=== PATIENT | female | born 1965 | race Caucasian/White ===

== ENCOUNTER 2019-04-05 16:48 | Emergency (ER) | payer BC, OTHER ==
--- NOTE | 2019-04-05 17:30 | RAD ---
RADIOGRAPH CHEST 1 VIEW: DATE: 04/05/2019 HISTORY: 54-year-old female with chest pain and cough FINDINGS: There are no airspace densities, pulmonary edema, pneumothorax, or cardiomegaly. The lateral costophr enic angles are sharp. IMPRESSION: No acute cardiopulmonary findings.
[2019-04-05] MEDS ORDERED: Morphine 10 MG/ML VIAL ONE (17:47)
[2019-04-05] MEDS ORDERED: Ondansetron ODT 8 MG TAB ONE (17:47)
[2019-04-05 17:59] LABS: Hemoglobin 8.9 g/dL (12.0-16.0); Mean Corpuscular HGB CONC 28.8 g/dL (32.0-36.0); Mean Corpuscular Hemoglobin 19.1 pg (27.0-31.0); Mean Corpuscular Volume 66.5 fL (78.0-98.0); Mean Platelet Volume 7.2 fL (7.4-10.4); Platelet Count 184 thou/uL (130-400); Red Blood Cell (RBC) Count 4.64 mill/uL (4.20-5.40); White Blood Cell (WBC) Count 4.1 thou/uL (4.8-10.8)
[2019-04-05 18:06] LABS: #Eosinphils 0.1 thou/uL (0.0-0.7); #Lymphocytes 1.7 thou/uL (1.20-3.40); #Monocytes 0.4 thou/uL (0.11-0.59); #Neutrophils 1.9 thou/uL (1.40-6.50); %Basophils 0.6 % (0.0-1.0); %Eosinophils 2.3 % (0.0-10.0); %Lymphocytes 41.6 % (21.0-51.0); %Monocytes 9.6 % (0.0-10.0); %Neutrophils 45.9 % (42.0-75.0); Anisocytosis SLIGHT = 6-15 cells (100X) (0-5/hpf); Hypochromia SLIGHT = 6-15 cells (100X) (0-5/hpf); MDiff Complete? YES; Microcytosis SLIGHT = 6-15 cells (100X) (0-5/hpf); Platelet Morphology Comment Appears Adequate; Poikilocytosis SLIGHT = 6-15 cells (100X) (0-5/hpf)
[2019-04-05 18:09] LABS: Chloride 106 mmol/L (98-107); Potassium 4.2 mmol/L (3.5-5.1); Sodium 140 mmol/L (136-145)
[2019-04-05 18:20] LABS: ALT (SGPT) 26 U/L (8-55); AST (SGOT) 30 U/L (5-34); Albumin 3.7 g/dL (3.5-5.0); Alkaline Phosphatase 48 U/L (40-150); BUN (Urea Nitrogen) 36 mg/dL (9.8-20.1); Bilirubin, Total 0.2 mg/dL (0.2-1.2); Calc. Creatinine Clearance 0 mL/min (70-130); Calcium 9.3 mg/dL (7.8-10.44); Carbon Dioxide 26 mmol/L (22-29); Estimated GFR-MDRD 49; Globulin 2.7 g/dL (2.4-3.5); Glucose 94 mg/dL (70-105); Protein, Total 6.4 g/dL (6.0-8.3)
[2019-04-05 18:47] LABS: Anion Gap 12 mmol/L (10-20)
--- NOTE | 2019-04-09 10:31 | EKG ---
Test Reason : WEAKNESS Blood Pressure : / mmHG Vent. Rate : 065 BPM Atrial Rate : 065 BPM P-R Int : 182 ms QRS Dur : 086 ms QT Int : 424 ms P-R-T Axes : 071 012 067 degrees QTc Int : 440 ms Normal sinus rhythm Normal ECG Confirmed by BONIFACIO CHOWDHURY ([id number]), managing editor MADI CABA ([id number]) on 04/09/2019 10:31:32 AM Referred By: Confirmed By:BONIFACIO CHOWDHURY
== END 2019-04-05 19:35 | disposition home or self-care (01) ==
LOC: ERS 16:48
DX: S74.01XA Injury of sciatic nerve at hip and thigh level, right leg, initial encounter (principal); I26.99 Other pulmonary embolism without acute cor pulmonale; I10 Essential (primary) hypertension; J45.909 Unspecified asthma, uncomplicated; I95.1 Orthostatic hypotension; E03.9 Hypothyroidism, unspecified; F32.9 Major depressive disorder, single episode, unspecified; Z79.899 Other long term (current) drug therapy; Z79.01 Long term (current) use of anticoagulants; X58.XXXA Exposure to other specified factors, initial encounter
CPT/HCPCS: 36415; 71045; 80053; 84484; 85025; 93005; 96372; J2270

== ENCOUNTER 2019-06-15 08:43 | Emergency (ER) | payer OTHER ==
[2019-06-15 09:51] LABS: #Eosinphils 0.1 thou/uL (0.0-0.7); #Lymphocytes 1.3 thou/uL (1.20-3.40); #Monocytes 0.5 thou/uL (0.11-0.59); %Basophils 0.1 % (0.0-1.0); %Eosinophils 1.9 % (0.0-10.0); %Lymphocytes 19.3 % (21.0-51.0); %Monocytes 6.8 % (0.0-10.0); %Neutrophils 71.9 % (42.0-75.0); Hemoglobin 8.2 g/dL (12.0-16.0); Mean Corpuscular HGB CONC 30.5 g/dL (32.0-36.0); Mean Corpuscular Hemoglobin 21.6 pg (27.0-31.0); Mean Platelet Volume 6.3 fL (7.4-10.4); Platelet Count 213 thou/uL (130-400); RBC Distribution Width 22.1 % (11.5-14.5); Red Blood Cell (RBC) Count 3.81 mill/uL (4.20-5.40)
[2019-06-15 10:02] LABS: ALT (SGPT) 10 U/L (8-55); AST (SGOT) 15 U/L (5-34); Albumin 3.6 g/dL (3.5-5.0); Alkaline Phosphatase 58 U/L (40-150); Anion Gap 11 mmol/L (10-20); BUN (Urea Nitrogen) 25 mg/dL (9.8-20.1); Bilirubin, Total 0.3 mg/dL (0.2-1.2); Calc. Creatinine Clearance 0 mL/min (70-130); Calcium 9.5 mg/dL (7.8-10.44); Carbon Dioxide 25 mmol/L (22-29); Chloride 108 mmol/L (98-107); Estimated GFR-MDRD 68; Globulin 3.1 g/dL (2.4-3.5); Glucose 96 mg/dL (70-105); Potassium 3.6 mmol/L (3.5-5.1); Protein, Total 6.7 g/dL (6.0-8.3); Sodium 140 mmol/L (136-145)
[2019-06-15] MEDS ORDERED: HYDROcodone/Acetaminophen 5/325 mg Tablet ONE (10:03)
--- NOTE | 2019-06-15 10:03 | RAD ---
EXAM: 3 views of the right shoulder HISTORY: Shoulder pain COMPARISON: None FINDINGS: There is no evidence of acute fracture or dislocation. No degenerative changes are present. No soft tissue swelling is seen. The visualized thorax is unremarkable. IMPRESSION: No evidence of acute osseous abnormality.
--- NOTE | 2019-06-15 10:03 | RAD ---
EXAM: 3 views of the right hand COMPARISON: None HISTORY: Hand pain FINDINGS: 3 views of the right hand shows no evidence of acute fracture or dislocation. No degenerati ve changes are seen. No soft tissue swelling is present. IMPRESSION: Unremarkable exam.
--- NOTE | 2019-06-15 10:04 | RAD ---
EXAM: 3 views of the right foot HISTORY: Foot pain COMPARISON: 04/21/2016 FINDINGS: 3 views of the right foot shows no evidence of acute fracture or dislocation. Diffuse osteo penia is seen. No soft tissue swelling is seen. No degenerative changes are present. IMPRESSION: No evidence of acute osseous abnormality.
--- NOTE | 2019-06-15 10:04 | RAD ---
3 views right hand: 06/15/2019 COMPARISON: None HISTORY: Fall, trauma, pain FINDINGS: No fracture or dislocation. No radiopaque foreign body or subcutaneous gas. IMPRESSION: No acute findings.
[2019-06-15 10:15] LABS: Hypochromia MODERATE=16-30 cells (100X) (0-5/hpf); MDiff Complete? YES; Microcytosis MODERATE=15-30 cells (100X) (0-5/hpf); Ovalocytes SLIGHT = 2-5 cells (100X) (0-1/hpf); Platelet Morphology Comment Appears Adequate; Polychromasia SLIGHT = 2-3 cells (100X) (0-2/hpf)
--- NOTE | 2019-06-15 10:26 | CT ---
EXAM: CT face without contrast HISTORY: Facial trauma after falling getting up off the toilet. COMPARISON: 03/14/2016 TECHNIQUE: Multiple contiguous axial images were obtained and a CT of the face without contrast. Sagi ttal and coronal reformats were performed. FINDINGS: No facial fractures are identified. No facial soft tissue swelling is seen. The globes and retrobulbar soft tissues are unremarkable. Fluid and mucosal thickening is seen in the right maxillary sinus. The other visualized paranasal sin uses are well aerated without evidence of opacification. The mastoid air cells are well aerated. Visualized intracranial structures are unremarkable. IMPRESSION: No evidence of facial fracture
--- NOTE | 2019-06-15 11:01 | CT ---
CT BRAIN WITHOUT CONTRAST: HISTORY: Syncope, fall. FINDINGS: Comparison is made with the exam of 03/14/2016. No evidence of infarct, hemorrhage, midline shift, or abnormal extraaxial fluid collections is seen. The ventricular size is normal and the basilar cisterns patent. The bony calvarium is intact. Ther e is mucosal disease in the paranasal sinuses. IMPRESSION: No CT evidence of acute intracranial process. POS: OFF
--- NOTE | 2019-06-15 11:06 | CT ---
CT CERVICAL SPINE WITH CORONAL AND SAGITTAL REFORMATSION: HISTORY: Syncope, fall, neck pain. FINDINGS/IMPRESSION: Degenerative changes are seen most prominent at C4-5, C5-6, and C6-7 levels. No fracture, subluxatio n, or facet malalignment is seen. POS: OFF
[2019-06-15] MEDS ORDERED: Lidocaine 1% (PF) 30 ML VIAL ONE (11:35)
[2019-06-15] MEDS ORDERED: Adacel (T-DAP) 0.5 ML SYRINGE ONE (11:38)
[2019-06-15] MEDS ORDERED: Midodrine HCl 5 MG TAB PO SCH (12:30)
== END 2019-06-15 12:50 | disposition home or self-care (01) ==
LOC: ERS 08:43
DX: S01.81XA Laceration without foreign body of other part of head, initial encounter (principal); S60.222A Contusion of left hand, initial encounter; S60.221A Contusion of right hand, initial encounter; M79.671 Pain in right foot; M25.511 Pain in right shoulder; R55 Syncope and collapse; Z23 Encounter for immunization; I10 Essential (primary) hypertension; J45.909 Unspecified asthma, uncomplicated; E03.9 Hypothyroidism, unspecified; Z86.711 Personal history of pulmonary embolism; F32.9 Major depressive disorder, single episode, unspecified; Z79.899 Other long term (current) drug therapy; W18.2XXA Fall in (into) shower or empty bathtub, initial encounter
CPT/HCPCS: 12011; 36415; 70450; 70486; 72125; 80053; 85025; 90471; 90715; 93005; J2001

== ENCOUNTER 2019-06-22 14:50 | Emergency (ER) | payer OTHER | END 2019-06-22 15:32 | disposition home or self-care (01) | LOC: ERS 14:50 | DX: S01.21XD Laceration without foreign body of nose, subsequent encounter (principal) ==

== ENCOUNTER 2019-09-20 19:46 | Emergency (ER) | payer OTHER ==
[2019-09-20 20:32] LABS: #Eosinphils 0.1 thou/uL (0.0-0.7); #Lymphocytes 1.3 thou/uL (1.20-3.40); #Monocytes 0.6 thou/uL (0.11-0.59); #Neutrophils 5.1 thou/uL (1.40-6.50); %Basophils 0.1 % (0.0-1.0); %Eosinophils 1.2 % (0.0-10.0); %Lymphocytes 18.6 % (21.0-51.0); %Monocytes 7.7 % (0.0-10.0); %Neutrophils 72.4 % (42.0-75.0); Hemoglobin 8.9 g/dL (12.0-16.0); Mean Corpuscular HGB CONC 30.1 g/dL (32.0-36.0); Mean Corpuscular Hemoglobin 18.6 pg (27.0-31.0); Mean Corpuscular Volume 61.8 fL (78.0-98.0); Mean Platelet Volume 7.5 fL (7.4-10.4); Platelet Count 252 thou/uL (130-400); RBC Distribution Width 19.1 % (11.5-14.5); White Blood Cell (WBC) Count 7.1 thou/uL (4.8-10.8)
[2019-09-20] MEDS ORDERED: Acetaminophen 325 MG TAB ONE (20:42)
[2019-09-20 20:54] LABS: ALT (SGPT) 9 U/L (8-55); AST (SGOT) 15 U/L (5-34); Albumin 4.4 g/dL (3.5-5.0); Alkaline Phosphatase 69 U/L (40-110); Anion Gap 11 mmol/L (10-20); BUN (Urea Nitrogen) 20 mg/dL (9.8-20.1); Bilirubin, Total 0.5 mg/dL (0.2-1.2); Calc. Creatinine Clearance 0 mL/min (70-130); Calcium 9.8 mg/dL (7.8-10.44); Carbon Dioxide 28 mmol/L (22-29); Chloride 103 mmol/L (98-107); Estimated GFR-MDRD 41; Globulin 3.6 g/dL (2.4-3.5); Glucose 100 mg/dL (70-105); Potassium 3.3 mmol/L (3.5-5.1); Sodium 139 mmol/L (136-145)
--- NOTE | 2019-09-20 20:54 | CT ---
CT Brain WO Con: 09/20/2019 8:25 PM CLINICAL HISTORY: History of dysautonomia and recurrent syncope. IMAGING TECHNIQUE: Multiple CT images were obtained of the brain without IV contrast. COMPARISON: June 15, 2019 FINDINGS: Brain: No acute infarct or hemorrhage is evident. No midline shift. Ventricles: Normal. No hydrocephalus.. Skull: Intact.. Visualized Paranasal sinuses: Clear.. Mastoid air cells:Clear. Extracranial soft tissues:Normal. IMPRESSION: No acute intracranial abnormality.
--- NOTE | 2019-09-20 20:57 | CT ---
CT Cervical Spine WO Con Indication: History of dysautonomia, recurrent syncopal episodes and concern for fall and neck injury COMPARISON: Prior CT cervical spine dated June 15, 2019 FINDINGS: Fracture: None. Spinal alignment: No acute malalignment. Craniocervical junction: Within normal limits. Vertebral body heights: Maintained. Cervical spine degenerative change: There is moderate spondylosis of the cervical spine most pronounc ed at C5-6 and C6-7. Disc osteophyte complexes at C5-6 and C6-7 appear stable. Lung apices: Clear. IMPRESSION: No acute osseous abnormality.
[2019-09-20 21:00] LABS: Anisocytosis SLIGHT = 6-15 cells (100X) (0-5/hpf); Hypochromia SLIGHT = 6-15 cells (100X) (0-5/hpf); MDiff Complete? YES; Microcytosis MODERATE=15-30 cells (100X) (0-5/hpf)
--- NOTE | 2019-09-20 21:04 | RAD ---
Chest AP view INDICATION: Syncope COMPARISON: April 21, 2019 FINDINGS: Lungs:The lungs are clear Cardiac silhouette:The cardiomediastinal silhouette appears within normal limits. Pulmonary vasculature:Normal Pleural spaces:No pleural effusion or pneumothorax is demonstrated. Upper abdomen:No abnormality seen. Osseous structures: No acute osseous abnormality. Additional findings:Cholecystectomy clips are stable IMPRESSION: No acute cardiopulmonary abnormality.
--- NOTE | 2019-09-20 21:05 | RAD ---
XR Knee Rt 4 View STANDARD: 09/20/2019 8:35 PM CLINICAL INDICATION: Fall with right knee pain COMPARISON: None. FINDINGS: Bones: There is diffuse osteopenia. No acute fracture or subluxation demonstrated. Joints: No joint capsular distention.. Soft Tissue: No acute abnormality.. IMPRESSION: No acute osseous abnormality..
--- NOTE | 2019-09-20 21:05 | RAD ---
XR Ankle Rt 3 View STANDARD INDICATION: Ankle injury. COMPARISON: Prior exam dated May 06, 2019 FINDINGS: Bones: Intact. Ankle mortise: Symmetric. Talar Dome: Intact. Subtalar joint: Normal. Visualized hindfoot: Normal. Periarticular soft tissues: Normal. IMPRESSION: 1. No acute fracture or subluxation demonstrated.
--- NOTE | 2019-09-20 21:10 | RAD ---
XR Hip Rt 2-3 View INDICATION: Right hip pain after fall COMPARISON: None FINDINGS: Bones: No acute osseous abnormality. Bone mineralization appears within normal limits. Hip joint: Radiographically normal. SI joints and symphysis pubis: Radiographically normal. Intrapelvic contents: Visualized bowel gas pattern is within normal limits. Surrounding soft tissues: Radiographically normal. IMPRESSION: 1. No acute osseous abnormality.
[2019-09-20] MEDS ORDERED: Morphine 2 MG/ML SYRINGE ONE (23:10)
== END 2019-09-20 23:55 | disposition home or self-care (01) ==
LOC: ERS 19:46
DX: S06.9X9A Unspecified intracranial injury with loss of consciousness of unspecified duration, initial encounter (principal); R55 Syncope and collapse; M54.2 Cervicalgia; I10 Essential (primary) hypertension; J45.909 Unspecified asthma, uncomplicated; E03.9 Hypothyroidism, unspecified; F32.9 Major depressive disorder, single episode, unspecified; Z79.899 Other long term (current) drug therapy; Z86.711 Personal history of pulmonary embolism; W22.8XXA Striking against or struck by other objects, initial encounter
CPT/HCPCS: 70450; 71045; 72125; 80053; 84484; 85025; 93005; 94760; 96374; J2270

== ENCOUNTER 2019-10-12 20:41 | Inpatient (IN) | payer OTHER ==
[2019-10-12 21:50] LABS: #Lymphocytes 1.2 thou/uL (1.20-3.40); #Neutrophils 10.3 thou/uL (1.40-6.50); %Basophils 0.1 % (0.0-1.0); %Eosinophils 0.1 % (0.0-10.0); %Lymphocytes 9.5 % (21.0-51.0); %Monocytes 7.7 % (0.0-10.0); %Neutrophils 82.6 % (42.0-75.0); Hemoglobin 7.4 g/dL (12.0-16.0); Mean Corpuscular HGB CONC 29.7 g/dL (32.0-36.0); Mean Corpuscular Hemoglobin 18.1 pg (27.0-31.0); Mean Platelet Volume 6.1 fL (7.4-10.4); Platelet Count 252 thou/uL (130-400); RBC Distribution Width 18.8 % (11.5-14.5); Red Blood Cell (RBC) Count 4.08 mill/uL (4.20-5.40); White Blood Cell (WBC) Count 12.5 thou/uL (4.8-10.8)
--- NOTE | 2019-10-12 21:52 | RAD ---
Exam: Right shoulder 3 views: HISTORY: Syncope shoulder pain after fall FINDINGS: No evidence for acute fracture or dislocation. There is patchy alveolar parenchymal infiltrative stewart ges in the right lung concerning for pneumonia or edema. Consider follow-up PA and lateral chest. IMPRESSION: No fracture or dislocation. Abnormal pulmonary parenchymal changes in the right lung.
--- NOTE | 2019-10-12 22:04 | CT ---
EXAM: CT scan cervical spineWithout contrast: HISTORY: Injury from trauma, fall COMPARISON: 09/20/2019 FINDINGS: No evidence for acute fracture or facet dislocation. No significant malalignment. No prevertebral soft tissue swelling. Stable spondylosis with disc osteophytosis particularly at C5-C6 and C6-C7 with some associated steno sis. IMPRESSION: No evidence for acute fracture or facet dislocation or other significant acute process. Stable exam.
--- NOTE | 2019-10-12 22:06 | CT ---
EXAM: Brain CTWithout contrast: HISTORY: Injury from trauma, fall COMPARISON: 09/20/2019 FINDINGS: No focal mass or midline shift. No intra or extra-axial hemorrhage. Sinuses and mastoids are clear of acute process. IMPRESSION: No mass or bleed or other significant acute intracranial process. Stable exam.
[2019-10-12 22:11] LABS: ALT (SGPT) 9 U/L (8-55); AST (SGOT) 10 U/L (5-34); Albumin 3.5 g/dL (3.5-5.0); Alkaline Phosphatase 90 U/L (40-110); Anion Gap 13 mmol/L (10-20); BUN (Urea Nitrogen) 30 mg/dL (9.8-20.1); Bilirubin, Total 0.5 mg/dL (0.2-1.2); CK (CPK) 13 U/L (29-168); Calc. Creatinine Clearance 0 mL/min (70-130); Calcium 9.4 mg/dL (7.8-10.44); Carbon Dioxide 28 mmol/L (22-29); Chloride 100 mmol/L (98-107); Estimated GFR-MDRD 50; Globulin 3.6 g/dL (2.4-3.5); Glucose 100 mg/dL (70-105); Magnesium 2.2 mg/dL (1.6-2.6); Potassium 3.4 mmol/L (3.5-5.1); Protein, Total 7.1 g/dL (6.0-8.3); Sodium 138 mmol/L (136-145)
[2019-10-12] MEDS ORDERED: Acetaminophen 500 MG TAB ONE (22:36)
--- NOTE | 2019-10-12 22:54 | PDOC.FPRHP ---
- History of Present Illness Chief Complaint: found down at home History of Present Illness: Ms. Caceres is a 54yoF w/ pmh of dysautonomia who presents for loss of consciousness today. She lives alone. This morning she seemed off, texted her daughter an incoherent message around 8am. Daughter was unable to reach her between 9am and 5pm. Patient states that sometime around lunch time she fell and hit her head, but she does not recall the events surrounding the fall. Around 5pm she stopped responding to calls. Sometime today between 5 and 8 pm she lost consciousness, was found by daughter at 8pm. She had bowel and bladder incontinence today while unconscious. Her daughters report that her episodes have progressively worsened and appear seizure like with significant facial twitching and arm twitching. Daughters report that she has been falling more often (>3-4x / week) since her hospitalization in March of 2019 in [place]. Symptoms have acutely worsened in the last 6 weeks. She OD'd on temazapam in a suicide attempt in 03/2019 ([facility]) and subsequently had pulmonary emboli and neurologic complications. Has history of grand mal seizures since the diagnosis of dysautonomia in 2004. Last seizure was approx 8 years ago. Has alcohol monitor on ankle for past 6 months as a result of a DUI. Has been sober since then. Neurologist - Dr. Perez, last seen this summer. 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 PCP - Dr. Avery ED Course: Tylenol 1000mg, - Allergies/Adverse Reactions Allergies Allergy/AdvReac Type Severity Reaction Status Date / Time gatifloxacin [From Tequin] Allergy Verified 03/14/16 17:11 levofloxacin [From Levaquin] Allergy Verified 03/14/16 15:50 pneumococcal vaccine Allergy Verified 06/11/15 17:50 - Home Medications Medication Instructions Recorded Confirmed Type DULoxetine [Cymbalta] 30 mg PO BID 10/13/19 10/13/19 History Gabapentin [Gabapentin Oral 1,200 mg PO TID 10/13/19 10/13/19 History Solution] HYDROcodone/Acetaminophen [[place] 1 each PO Q6HR PRN 10/13/19 10/13/19 History 5-325 Tablet] Lamotrigine [lamoTRIgine] 100 mg PO DAILY 10/13/19 10/13/19 History Levothyroxine Sodium [Synthroid] 150 mcg PO DAILY 10/13/19 10/13/19 History Metoprolol Tartrate 200 mg PO DAILY 10/13/19 10/13/19 History Mexiletine HCl 150 mg PO DAILY 10/13/19 10/13/19 History Midodrine HCl 10 mg PO TID 10/13/19 10/13/19 History Pantoprazole [Protonix] 40 mg PO DAILY 10/13/19 10/13/19 History Topiramate 100 mg PO HS 10/13/19 10/13/19 History carBAMazepine [Tegretol] 100 mg PO BID 10/13/19 10/13/19 History traMADol HCl [Tramadol HCl] 50 mg PO Q6HR PRN 10/13/19 10/13/19 History traZODone HCl [Trazodone HCl] 100 mg PO HS 10/13/19 10/13/19 History - History PMHx: HTN Dysautonomia Seizure disorder Hypothyroidism Depression h/o Pulmonary embolism Foot drop Suicidality (last attempt 03/26/2019) PSHx: Hyst Gastric bypass Raymundo Celena Csections x2 Spinal fusion FHx: Brother: Lymphoma Parents from [facility] Brother: Esophageal cancer Social: Alcoholism, currently sober x 6 months. Denies tobacco use, denies illicit drug use. - Review of Systems General: reports: fatigue. denies: fever/chills, weight/appetite/sleep changes Eyes: denies: eye pain, vision changes ENT: reports: nasal congestion, rhinorrhea, other (hard of hearing) Respiratory: reports: cough, congestion. denies: shortness of breath Cardiovascular: reports: edema. denies: chest pain, palpitation, paroxysmal nocturnal dyspnea Gastrointestinal: reports: nausea, diarrhea. denies: vomiting, constipation, abdominal pain, GI bleeding Genitourinary: reports: incontinence, other (difficulty initiating urination). denies: dysuria Skin: reports: jaundice. denies: rashes, lesions Musculoskeletal: denies: pain, tenderness, stiffness Neurological: reports: numbness, syncope, weakness Psychological: reports: anxiety, depression - Vital signs BP: 152/86 HR: 58 RR: 16 Pox: 100% on RA Wt: 115lbs - Physical Exam Constitutional: NAD, awake, alert and oriented -Constitutional: thin HEENT: normocephalic and atraumatic, PERRLA, EOMI, conjunctiva clear, grossly normal vision, grossly normal hearing Neck: supple Heart: RRR, normal S1/S2, no murmurs/rubs/gallops, pulses present, no edema Lungs: CTAB, no respiratory distress, good air movement, no rales/rhonchi, no wheezing Abdomen: soft, non-tender, bowel sounds present Musculoskeletal: normal structure, normal tone -Musculoskeletal: Right calf pain Neurological: no focal deficit, CN II-XII intact -Neurological: Right foot drop Skin: no rash/lesions, good turgor -Skin: slightly jaundiced appearing Heme/Lymphatic: no unusual bruising or bleeding, no purpura, no petechia -Psychiatric: Flat affect FMR H&P: Results - Labs Result Diagrams: 10/12/19 21:38 10/12/19 21:38 Lab results: WBC 12.5 thou/uL (4.8-10.8) H 10/12/19 21:38 Hgb 7.4 g/dL (12.0-16.0) L 10/12/19 21:38 Hct 24.9 % (36.0-47.0) L 10/12/19 21:38 MCV 61.0 fL (78.0-98.0) L 10/12/19 21:38 Plt Count 252 thou/uL (130-400) 10/12/19 21:38 Neutrophils % 82.6 % (42.0-75.0) H 10/12/19 21:38 Sodium 138 mmol/L (136-145) 10/12/19 21:38 Potassium 3.4 mmol/L (3.5-5.1) L 10/12/19 21:38 Chloride 100 mmol/L (98-107) 10/12/19 21:38 Carbon Dioxide 28 mmol/L (22-29) 10/12/19 21:38 BUN 30 mg/dL (9.8-20.1) H 10/12/19 21:38 Creatinine 1.14 mg/dL (0.6-1.1) H 10/12/19 21:38 Glucose 100 mg/dL (70-105) 10/12/19 21:38 Calcium 9.4 mg/dL (7.8-10.44) 10/12/19 21:38 Total Bilirubin 0.5 mg/dL (0.2-1.2) 10/12/19 21:38 AST 10 U/L (5-34) 10/12/19 21:38 ALT 9 U/L (8-55) 10/12/19 21:38 Alkaline Phosphatase 90 U/L (40-110) 10/12/19 21:38 Creatine Kinase 13 U/L (29-168) L 10/12/19 21:38 Serum Total Protein 7.1 g/dL (6.0-8.3) 10/12/19 21:38 Albumin 3.5 g/dL (3.5-5.0) 10/12/19 21:38 - Radiology Interpretation CT scan - head Status: report reviewed by me (No mass or bleed or other significant acute intracranial process. C-spine: No evidence for acute fracture or facet dislocation or other significant acute process. Stable exam.) Other Status: report reviewed by me (Shoulder X-ray: No fracture or dislocation. Abnormal pulmonary parenchymal changes in the right lung.) FMR H&P: A/P - Plan Seizure disorder / Loss of consciousness - Recommend seizure precautions, continue home medications. - Prolactin WNL - Consider EEG - Will consult Neurology in the morning - Carotid doppler ordered to evaluate syncope - continuous cardiac monitoring to evaluate for arrhythmia Microcytic anemia - Iron studies ordered. - Recommend iron supplementation Dysautonomia - recommend f/u with neurology Chronic medical conditions listed below: Stable, continue home medications. Hypothyroidism Depression HTN Suicidality (last attempt 03/26/2019) - Currently not suicidal. Continue home depression medications. Disposition/LOS: Dispo: Stable vs guarded, inpatient likely LOS > 48 hours. Will need case management for help with d/c planning. VTE: Lovenox Code: Full FMR H&P: Upper Level - Plan Date/Time: 10/12/19 [id number] PCP: Gena HPI: This is a 54 yo F who comes in complaining of increasing amounts of falls, about 3-4 per week. Daughter states patient seemed off when talking on the phone with her this morning. Patient remembers falling and hitting her head sometime this morning. Then later in the night around 5pm patient quit answering the phone. Daughter went to check on her and found her passed out on the cough incontinent of bowel and bladder. REVIEW OF SYSTEMS: Gen: no fever, chills, or sweats Neuro: see above Eyes: no visual changes ENT: no hearing changes, no sore throat, no congestion Resp: denies cough, SOB Card: denies murmurs, rubs, gallups GI: no N/V/D, no abdominal pain Heme: no easy bruising/bleeding, no blood thinners Skin: no rash, no erythema PHYSICAL EXAMINATION: General: NAD, alert and oriented x3 HEENT: PERRLA, EOMI, normal sclera, oropharynx without erythema or exudate Neck: Supple. Full ROM. Heart/Cardiovascular System: RRR, Cap refill < 3 seconds, no rub, no murmur Lungs/Respiratory System: CTA-B, no resp distress Abdomen/Gastro-Intestinal System: no abdominal tenderness, normal bowel sounds Extremities: Warm extremities. No cyanosis or edema Neuro: No gross deficits appreciated. CN 2-12 grossly intact, NIHSS 0 Psychiatry: Awake, Alert and cooperative with exam Skin: No lesions, rashes, or ulcers Musculoskeletal: Full ROM A/P: # Seizure disorder - EEG and neurology consult in AM - Check levels of medications - History of OD attempt on benzos in march # Syncope, Dysautonomia - Known issue from review of clinic notes - Was referred to new occupational hygienist as [facility] does not accept her insurance - Carotid doppler # Microcytic anemia - Hgb 7.4, iron studies Code status: full PPx: lovenox Dispo: 1-2 days
[2019-10-13] MEDS ORDERED: Acetaminophen 325 MG TAB ONE (04:31)
[2019-10-13] MEDS ORDERED: Ondansetron ODT 4 MG TAB PO PRN (05:52)
[2019-10-13] MEDS ORDERED: Acetaminophen 325 MG TAB PO PRN (05:52)
[2019-10-13] MEDS ORDERED: Loperamide HCl 2 MG CAP PO PRN (05:52)
[2019-10-13] MEDS ORDERED: Lorazepam 2 MG/ML VIAL SLOW IVP PRN (05:52)
--- NOTE | 2019-10-13 05:56 | PDOC.FM ---
- Subjective Subjective: Pt states she just woke up and having trouble verbalizing her thoughts. Pt denies GARNCIA, CP, SOB. Resting well, about to move to stroke unit from ED. On ER hold overnight. - Objective MAR Reviewed: Yes Result Diagrams: 10/12/19 21:38 10/12/19 21:38 Phys Exam - Physical Examination Constitutional: NAD HEENT: PERRLA, moist MMs, sclera anicteric conjunctival pallor. Neck: no nodes, no JVD, supple, full ROM Respiratory: no wheezing, no rales, no rhonchi, clear to auscultation bilateral Cardiovascular: RRR, no significant murmur, no rub Gastrointestinal: soft, non-tender, no distention, positive bowel sounds Musculoskeletal: no edema, pulses present Neurological: non-focal, normal sensation, moves all 4 limbs Psychiatric: A&O x 3 Skin: no rash, normal turgor, cap refill <2 seconds Dx/Plan (1) Syncopal seizure Code(s): R55 - SYNCOPE AND COLLAPSE; R56.9 - UNSPECIFIED CONVULSIONS Status: Acute (2) Dysautonomia Code(s): G90.9 - DISORDER OF THE AUTONOMIC NERVOUS SYSTEM, UNSPECIFIED Status : Chronic (3) Hypertension Code(s): I10 - ESSENTIAL (PRIMARY) HYPERTENSION Status: Chronic Qualifiers: Hypertension type: essential hypertension Qualified Code(s): I10 - Essential (primary) hypertension (4) Hx of suicide attempt Code(s): Z91.5 - PERSONAL HISTORY OF SELF-HARM Status: Acute - Plan Plan: 54 y/o F admitted to stroke for GLF for further workup and evaluation. 1. Seizure disorder / Loss of consciousness - Recommend seizure precautions, continue home medications. - Prolactin WNL - Consider EEG - Will consult Neurology - Carotid doppler ordered to evaluate syncope - continuous cardiac monitoring to evaluate for arrhythmia 2. Microcytic anemia - Iron studies, B12, and RBC Folate ordered. - Recommend iron supplementation 3. Dysautonomia - recommend f/u with neurology Chronic medical conditions listed below: Stable, continue home medications. Hypothyroidism Depression HTN 4. Hx of suicidal attempt (last attempt 03/26/2019) - Currently not suicidal. Continue home depression medications. 5. Hx of Alcohol abuse and misuse - Pt currently has etoh monitor on left ankle. - DUI cristian ordered monitor. 6. Hx of recurrent falls - Ordered RPR, B12 to further evaluate in setting of etoh abuse. - carotid doppler pending Disposition/LOS: Dispo: Stable vs guarded, inpatient likely LOS > 48 hours. Will need case management for help with d/c planning. VTE: Lovenox Code: Full
[2019-10-13 07:12] LABS: Cardiac Risk 4.7 (Less than 4.5); Cholesterol 123 mg/dl (< 200 Desired); HDL Cholesterol 26 mg/dL (>60 Neg Risk); Iron Less than 8 ug/dL (50-170); Iron Binding Capacity, Total 359 mcg/dL (265-497); LDL Cholesterol, Calculated 73 mg/dL; Triglycerides 118 mg/dL (Less than 150)
[2019-10-13 07:32] LABS: Syphilis Antibody Nonreactive (Nonreactive); Syphilis Antibody Index 0.02 S/CO (<1.00 Non-Reactive)
[2019-10-13] MEDS ORDERED: Enoxaparin Sodium 40 MG/0.4 ML SYRINGE ONE (08:48)
[2019-10-13] MEDS ORDERED: Famotidine 20 MG TAB ONE (08:48)
[2019-10-13] MEDS ORDERED: carBAMazepine 100 mg Chewable Tablet PO SCH (09:00)
[2019-10-13] MEDS ORDERED: Enoxaparin Sodium 40 MG/0.4 ML SYRINGE SC SCH ×2 (09:00)
[2019-10-13] MEDS ORDERED: lamoTRIgine 100 MG TAB PO SCH (09:00)
[2019-10-13] MEDS ORDERED: Gabapentin 100 MG CAP PO SCH ×2 (09:00→09:26)
[2019-10-13] MEDS: Sodium Chloride 0.9% 1,000 ML IV SCH ×3 (09:10→22:55)
[2019-10-13] MEDS: Levothyroxine 150 MCG TAB PO SCH (09:11)
[2019-10-13] MEDS: Famotidine 20 MG TAB PO SCH ×2 (09:12→20:32)
[2019-10-13] MEDS: Metoprolol Tartrate 100 MG TAB PO SCH (09:14)
--- NOTE | 2019-10-13 09:57 | ULT ---
BILATERAL CAROTID DUPLEX ULTRASOUND: DATE: 10/13/19 HISTORY: Syncope. TECHNIQUE: Forbes scale ultrasound with color flow and spectral Doppler imaging of the extracranial carotid artery systems performed bilaterally. FINDINGS: No significant plaque formation or intimal wall thickening seen. The peak systolic velocity in the right ICA measures 73 cm/second with an end-diastolic velocity of 2 7 cm/second and a systolic ratio of 1.09. The peak systolic velocity in the left ICA measures 70 cm/second with an end-diastolic velocity of 32 cm/second and a systolic ratio of 0.95. Flow in both vertebral arteries remains antegrade. IMPRESSION: No evidence of hemodynamically significant stenosis. POS: TPC
[2019-10-13] MEDS: Gabapentin 300 MG CAP PO SCH ×3 (10:52→20:37)
[2019-10-13] MEDS: Mexiletine HCl 150 MG CAP PO SCH (11:01)
[2019-10-13] MEDS: Midodrine HCl 5 MG TAB PO SCH ×2 (11:01→17:37)
[2019-10-13] MEDS: DULoxetine 30 MG CAP PO SCH ×2 (11:02→20:33)
[2019-10-13 11:43] LABS: Free T4 (Free Thyroxine) 1.16 ng/dL (0.70-1.48)
[2019-10-13 11:57] LABS: HBSAg Index 0.32 S/CO (0-0.99); HIV (1/2) Antibody/Antigen Non-Reactive (NonReactive); HIV 1/2 INDEX 0.14 S/CO (<1.00); Hep A IgM AB Non-Reactive (NonReactive); Hep A IgM S/CO 0.37 S/CO (0-0.79); Hep B Core Total Ab Non-Reactive (NonReactive); Hep B Core Total Index 0.12 S/CO (0-0.79); Hep B Surf Ag Non-Reactive S/CO (NonReactive)
[2019-10-13 11:59] LABS: HBSAB Concentration 13.84 mIU/mL; Hep B Surf AB Reactive (NonReactive)
--- NOTE | 2019-10-13 12:37 | HP ---
I have discussed the case with Dr. Anaid Hammond and with Dr. Jeannette Calderón and agreed with their assessment and plan. HISTORY OF PRESENT ILLNESS: Briefly, Ms. Caceres is a 54-year-old white female patient, has a long complicated past medical history including history of dysautonomia and seizure disorder. She also has a history of long-standing what appears to be iron deficiency anemia with recent colonoscopy in [place] in March of this year. She was told at that time that she had "polyps" but no biopsies were undertaken. In the event, her hemoglobin on admission was 7.4, and we will re-initiate a workup. PHYSICAL EXAMINATION: VITAL SIGNS: Her blood pressure is 152/86, her pulse rate is 58 and regular, respirations 16, her room air pulse ox is 100% GENERAL: She is pleasant, cooperative, in no acute distress. She is oriented x4. EAR, NOSE, AND THROAT: No erythema or exudate. Moist mucous membranes. NECK: Supple. CARDIAC: Heart rhythm regular. No gallop or murmur noted. LUNGS: Clear without rales or wheezes. No respiratory distress. ABDOMEN: Flat, benign, soft. No guarding, rebound, or rigidity. NEUROLOGIC: She has no focal deficits. LABORATORY DATA: White count is 12,500, hemoglobin is 7.4, hematocrit is 24.9, MCV is 61. Chemistry; sodium 138, potassium 3.4, chloride 100, bicarb 28, BUN 30, creatinine 1.14 with GFR of 50. Her glucose is 100. Her liver functions test are normal. Hepatitis panel is pending. ASSESSMENT: Probable iron-deficiency anemia, given that she has had a GI workup fairly recently. We should also check her for celiac disease. She will likely need another colonoscopy, which can be done as an outpatient to retrieve these polyps. Other workup will depend on the results of her initial blood studies, which we are awaiting. Job ID: [id number]
[2019-10-13] MEDS ORDERED: Potassium Chloride 20 MEQ TAB PO SCH (14:30)
[2019-10-13 14:46] VITALS: BMI 19.0
[2019-10-13] MEDS ORDERED: Iron, Sodium Ferric Gluconate 250 MG in Sodium Chloride 0.9% 100 ML IVPB SCH (15:00)
[2019-10-13 15:29] LABS: Phosphorus 3.1 mg/dL (2.3-4.7)
[2019-10-13] MEDS ORDERED: Midodrine HCl 5 MG TAB PO PRN (15:44)
[2019-10-13 16:24] LABS: Band 8 % (5-11); Eosinophils 1 % (0-10); Helmet Cells SLIGHT = 2-5 cells (100X) (0-1/hpf); Hemoglobin 7.2 g/dL (12.0-16.0); Hypochromia SLIGHT = 6-15 cells (100X) (0-5/hpf); Lymphocytes 13 % (21-51); MDiff Complete? YES; Mean Corpuscular HGB CONC 30.1 g/dL (32.0-36.0); Mean Corpuscular Hemoglobin 18.6 pg (27.0-31.0); Mean Corpuscular Volume 61.7 fL (78.0-98.0); Mean Platelet Volume 6.3 fL (7.4-10.4); Monocytes 1 % (0-10); Neutrophil 77 % (42-75); Platelet Count 262 thou/uL (130-400); Platelet Morphology Comment Appears Adequate; Polychromasia SLIGHT = 2-3 cells (100X) (0-2/hpf); RBC Distribution Width 18.7 % (11.5-14.5); Red Blood Cell (RBC) Count 3.86 mill/uL (4.20-5.40); Schistocytes SLIGHT = 2-5 cells (100X) (0-1/hpf); Target Cells SLIGHT = 2-5 cells (100X) (0-1/hpf); Tear Drops SLIGHT = 2-5 cells (100X) (0-1/hpf); White Blood Cell (WBC) Count 8.2 thou/uL (4.8-10.8)
--- NOTE | 2019-10-13 17:13 | ULT ---
ULTRASOUND DOPPLER DUPLEX VENOUS BILATERAL LOWER EXTREMITIES: DATE: 10/13/2019 HISTORY: 54-year-old female with right lower extremity pain. Sherly Perkins, charge nurse notified of the DVT by Dr Driscoll at 5:10 PM 10/13/2019 TECHNIQUE: Grayscale, color-flow, and spectral analysis, of the bilateral common femoral, profunda femoral, grea ter saphenous, femoral, popliteal, and posterior tibial, veins. FINDINGS: There is noncompressibility and significantly diminished flow due to thrombosis, in the right poplite al vein, extending into the posterior tibial vein. There is no DVT in the contralateral left lower extremity. IMPRESSION: Positive for acute deep venous thrombosis of right popliteal and right posterior tibial veins.
[2019-10-13] MEDS: carBAMazepine 200 MG TAB PO SCH (17:37)
[2019-10-13] MEDS: Ferrous Sulfate 325 MG TAB PO SCH (17:37)
[2019-10-13] MEDS: HYDROcodone/Acetaminophen 5/325 mg Tablet PO PRN (20:31)
[2019-10-13] MEDS: Enoxaparin Sodium 60 MG/0.6 ML SYRINGE SC SCH (20:34)
[2019-10-13] MEDS ORDERED: Metoprolol Tartrate 100 MG TAB PO SCH (21:00)
[2019-10-13] MEDS ORDERED: traZODone HCl 50 MG TAB PO SCH (21:00)
[2019-10-13] MEDS ORDERED: Midodrine HCl 5 MG TAB PO SCH (21:00)
[2019-10-13] MEDS ORDERED: Topiramate 100 MG TAB PO SCH (21:00)
[2019-10-14] MEDS ORDERED: Ibuprofen 600 MG TAB PO PRN (00:29)
[2019-10-14] MEDS: HYDROcodone/Acetaminophen 5/325 mg Tablet PO PRN (05:02)
[2019-10-14] MEDS: Levothyroxine 150 MCG TAB PO SCH (05:03)
[2019-10-14 05:19] LABS: Anion Gap 10 mmol/L (10-20); BUN (Urea Nitrogen) 18 mg/dL (9.8-20.1); Calc. Creatinine Clearance 66 mL/min (70-130); Calcium 8.6 mg/dL (7.8-10.44); Carbamazepine-Tegretol 3.4 ug/mL (4.0-12.0); Carbon Dioxide 27 mmol/L (22-29); Chloride 105 mmol/L (98-107); Estimated GFR-MDRD 72; Glucose 82 mg/dL (70-105); Potassium 3.2 mmol/L (3.5-5.1); Sodium 139 mmol/L (136-145)
[2019-10-14] MEDS ORDERED: Midodrine HCl 5 MG TAB PO SCH ×3 (06:00→14:00)
--- NOTE | 2019-10-14 06:04 | PDOC.FM ---
- Subjective Subjective: Pt c/o Upper right sided CP, worse when coughing and deep breathing. Pt found to have RLE DVT 10/13. Pt has a hx of PE from 03/2019. Was on Eliquis, but discontinued eliquis when she moved to [place] later that same month. Pt states she is starting to feel better, improved from yesterday. BP labile overnight. Pt has hx of this problem. - Objective MAR Reviewed: Yes Vital Signs & Weight: Vital Signs (12 hours) Temp Pulse Resp BP Pulse Ox 10/14/19 03:48 98.1 F 63 16 108/64 95 10/13/19 23:12 55 L 159/91 H 10/13/19 19:30 97.7 F 58 L 16 191/98 H 100 Weight Weight 53.388 kg Result Diagrams: 10/13/19 14:51 10/14/19 04:38 Phys Exam - Physical Examination Constitutional: NAD HEENT: PERRLA, moist MMs, sclera anicteric Neck: no nodes, no JVD, supple, full ROM Respiratory: no wheezing, no rales, no rhonchi, clear to auscultation bilateral Cardiovascular: RRR, no significant murmur, no rub Reproducible T to R upper chest. Gastrointestinal: soft, non-tender, no distention, positive bowel sounds Musculoskeletal: no edema, pulses present Tenderness ot R calf. + aziza sign R. Neurological: moves all 4 limbs R foot drop. Psychiatric: A&O x 3 Skin: no rash, normal turgor, cap refill <2 seconds Dx/Plan (1) Syncopal seizure Code(s): R55 - SYNCOPE AND COLLAPSE; R56.9 - UNSPECIFIED CONVULSIONS Status: Acute (2) Dysautonomia Code(s): G90.9 - DISORDER OF THE AUTONOMIC NERVOUS SYSTEM, UNSPECIFIED Status : Chronic (3) Hypertension Code(s): I10 - ESSENTIAL (PRIMARY) HYPERTENSION Status: Chronic Qualifiers: Hypertension type: essential hypertension Qualified Code(s): I10 - Essential (primary) hypertension (4) Hx of suicide attempt Code(s): Z91.5 - PERSONAL HISTORY OF SELF-HARM Status: Acute (5) History of pulmonary embolus (PE) Code(s): Z86.711 - PERSONAL HISTORY OF PULMONARY EMBOLISM Status: Resolved (6) Deep vein thrombosis (DVT) of popliteal vein of right lower extremity Code(s): I82.431 - ACUTE EMBOLISM AND THROMBOSIS OF RIGHT POPLITEAL VEIN Status: Acute Qualifiers: Chronicity: acute Qualified Code(s): I82.431 - Acute embolism and thrombosis of right popliteal vein - Plan Plan: 54 y/o F admitted to stroke for GLF for further workup and evaluation. 1. Seizure disorder / Loss of consciousness - Recommend seizure precautions, continue home medications. - Prolactin WNL - Consider EEG - Will consult Neurology - Carotid doppler ordered to evaluate syncope - continuous cardiac monitoring to evaluate for arrhythmia 2. Microcytic anemia - Iron studies, B12, and RBC Folate ordered. - Recommend iron supplementation 3. Dysautonomia - recommend f/u with neurology - + orthostatics, restarted home meds. Chronic medical conditions listed below: Stable, continue home medications. Hypothyroidism Depression HTN 4. Hx of suicidal attempt (last attempt 03/26/2019) - Currently not suicidal. Continue home depression medications. 5. Hx of Alcohol abuse and misuse - Pt currently has etoh monitor on left ankle. - DUI cristian ordered monitor. 6. Hx of recurrent falls - Ordered RPR, B12 to further evaluate in setting of etoh abuse. - carotid doppler pending 7. DVT in RLE in Popliteal and posterior tib veins. - Started Therapeutic Lovenox 10/13 8. Pleuritic Chest Pain - In setting of DVT and previous PE, ordered CTA Chest - Pt already on Lovenox for DVT. 9. Hx of PE 03/2019 - Was on eliquis short period of time. - Reports discontinuation of eliquis at the end of 03/2019. Disposition/LOS: Dispo: Stable vs guarded, inpatient likely LOS > 48 hours. Will need case management for help with d/c planning. VTE: Lovenox Code: Full
[2019-10-14] MEDS ORDERED: Potassium Chloride 20 MEQ TAB PO SCH (06:15)
[2019-10-14] MEDS: Enoxaparin Sodium 60 MG/0.6 ML SYRINGE SC SCH (09:49)
[2019-10-14] MEDS: Famotidine 20 MG TAB PO SCH (09:50)
[2019-10-14] MEDS: Metoprolol Tartrate 100 MG TAB PO SCH (09:50)
[2019-10-14] MEDS: carBAMazepine 200 MG TAB PO SCH ×2 (09:51→16:04)
[2019-10-14] MEDS: DULoxetine 30 MG CAP PO SCH (09:54)
[2019-10-14] MEDS: Ferrous Sulfate 325 MG TAB PO SCH ×2 (09:54→16:03)
[2019-10-14] MEDS: Mexiletine HCl 150 MG CAP PO SCH (09:54)
[2019-10-14] MEDS: GABAPENTIN 250 MG/5 ML PO SCH ×2 (09:56→16:06)
[2019-10-14] MEDS ORDERED: Iopamidol 370 76% 100 ML VIAL ONE (11:33)
[2019-10-14 11:40] VITALS: BP 119/65; TEMP 97.5
--- NOTE | 2019-10-14 11:53 | CT ---
CT PULMONARY ANGIOGRAM WITH IV CONTRAST AND 3D POSTPROCESSING: HISTORY: Chest pain, cough, cough, diagnosed with a right lower extremity DVT yesterday. FINDINGS: There is good contrast opacification of the pulmonary arterial vasculature without filling defects to suggest pulmonary embolism. The thoracic aorta is well opacified. No thoracic aortic aneurysm or d issection is seen. No pleural or pericardial effusions are identified. No pneumothoraces are seen. There are diffuse reticulonodular infiltrates in the right lung and patchy ones on the left. There are patchy airspace opacities in the right lower lobe. Upper abdominal tomograms demonstrate changes of cholecystectomy. IMPRESSION: 1. No CT evidence of pulmonary embolism. 2. Reticulonodular and alveolar infiltrates are suspicious for infection. POS: [facility]
[2019-10-14 14:45] LABS: EliA Celiac New Method **** NEW METHOD ****; t-Transglutaminase (tTG) IgA 0.3 EliAU/mL (<7 Negative)
--- NOTE | 2019-10-14 16:12 | PRG ---
DATE OF SERVICE: 10/14/2019 Ms. Caceres is sitting in bed quietly, in no distress. Her blood work is consistent with a mild iron deficiency anemia and possibly thalassemia given her very low MCV. We are checking hemoglobin electrophoresis. She also has a low B12 level, and we will begin to replace this. Some of these symptoms could be explained by the possibility of celiac disease, and we are checking an IgA tTG. Otherwise, she is ready for discharge home, and the rest of this workup to be done as an outpatient. Job ID: [id number]
[2019-10-14] MEDS: Sodium Chloride 0.9% 1,000 ML IV SCH (19:34)
--- NOTE | 2019-10-15 05:19 | DIS ---
DATE OF ADMISSION: 10/13/2019 DATE OF DISCHARGE: 10/14/2019 RESIDENT: Jeannette Calderón DO. ADMITTING PHYSICIAN: Ridge Kang MD. DISCHARGE ATTENDING: Alfa Baker MD. CONSULTS: None. PROCEDURES: 1. CT angiogram chest negative for pulmonary embolism. 2. Venogram of bilateral lower extremities showed DVT of the right popliteal vein and right posterior tibial vein. 3. Carotid Doppler study, no evidence of hemodynamically significant stenosis. DIAGNOSES: 1. Loss of consciousness, most likely secondary to seizure disorder. 2. Microcytic anemia. 3. Dysautonomia with orthostatic hypotension. 4. History of suicidal attempts. 5. History of alcohol abuse and misuse. 6. History of recurrent falls. 7. Deep venous thrombosis in right lower extremity and popliteal posterior tibial vein. 8. Pleuritic chest pain. 9. History of pulmonary embolus in March 2019. DISCHARGE MEDICATIONS: 1. Vitamin B12 1000 mcg daily. 2. Ferrous sulfate 325 mg p.o. b.i.d. 3. Carbamazepine 100 mg p.o. b.i.d. 4. Cymbalta 30 mg p.o. b.i.d. 5. Gabapentin 600 mg p.o. b.i.d. 6. Synthroid 150 mcg p.o. q.a.m. 7. Metoprolol 100 mg p.o. q.p.m. and 200 mg p.o. q.a.m. 8. Mexiletine 150 mg p.o. b.i.d. 9. Midodrine 10 mg p.o. p.r.n., 15 mg p.o. q.a.m. and 10 mg p.o. q.p.m. 10. Protonix 40 mg p.o. q.a.m. 11. Topiramate 300 mg p.o. at bedtime. 12. Tramadol 50 mg p.o. q.6 hours p.r.n. for pain. 13. Trazodone 100 mg p.o. at bedtime. DISCONTINUE MEDICATIONS: [place]. HISTORY OF PRESENT ILLNESS AND HOSPITAL COURSE: Ms. Caceres is a 54-year-old female with a past medical history of microcytic anemia, seizure disorder, previous suicides and neurologic deficit such as right footdrop, right-sided weakness, and pulmonary embolism. She came into the emergency department, because she was found down on 10/12/2019. The patient was presumed to have had a seizure as she was incontinent of bowel and urine. The patient was extensively worked up as her anemia may have been a possible source of her loss of consciousness as well. Her hemoglobin was 7.2 on admission. B12 was low. Iron was drastically low. She was given iron infusion as well as started on p.o. iron b.i.d. as well as p.o. B12 supplementation. MCV was 61, hemoglobin 7.2. TSH was 0.29, which prompted a free T4, which is in normal range of 1.16. A hemoglobin electrophoresis was sent for further evaluation of patient's mixed picture in her iron studies. TIBC was normal range, iron was less than 8. Ferritin was also within normal range. There is suspicion for thalassemia. This is being worked up further. HIV RPR negative as well as hepatitis B, A and C negative. The patient has had a colonoscopy and EGD recently, but states that she had polyps, but they were not removed, this was in [place]. My recommendation is that she follow up with Dr. Avery outpatient to get this set up for further evaluation. However, also suspecting celiac disease as another cause of her absorption problems. The patient did admit to having waxing and waning constipation and diarrhea as a chronic problem. DISPOSITION: The patient was stable upon discharge, eager to go home and followup outpatient. DISCHARGE INSTRUCTIONS: Location: Home. Diet: Regular diet. Activity: As tolerated. Followup: With primary care Dr. Avery at [facility]. The patient will require a followup venous Doppler at the right lower extremity in 2 weeks time to determine whether or not the DVT has stayed the same, alleviated or not worse , The patient was not discharged on any blood thinners as her DVT was below the knee and not extensive. The patient will also need follow up for colonoscopy and EGD. Job ID: [id number] [facility]
[2019-10-17 13:10] LABS: Topiramate (Topamax) Test 6.3 ug/mL (2.0-25.0)
[2019-10-17 16:09] LABS: Folate,Hemolysate 275.9 ng/mL (Not Estab.); Hematocrit 22.1 % (34.0-46.6); RBC Folate Test Component 1248 ng/mL (>498)
[2019-10-17 19:09] LABS: A/G Ratio 0.8 (0.7-1.7); Albumin 2.6 g/dL (2.9-4.4); Alpha 1 0.4 g/dL (0.0-0.4); Alpha 2 0.9 g/dL (0.4-1.0); Beta 0.9 g/dL (0.7-1.3); Gamma 0.9 g/dL (0.4-1.8); Globulin, Total 3.1 g/dL (2.2-3.9); M-Spike Not Observed g/dL (Not Observed)
== END 2019-10-14 16:20 | disposition home or self-care (01) | DRG 101 ==
LOC: ERS 20:41 → OBSVTOIN 10-13 00:25 → ERHOLD 10-13 00:25 → 2SE 10-13 14:14
PROVIDERS: ADMIT Family Medicine; ATTEND Family Medicine
DX: G40.909 Epilepsy, unspecified, not intractable, without status epilepticus (principal); I82.431 Acute embolism and thrombosis of right popliteal vein; I82.441 Acute embolism and thrombosis of right tibial vein; G81.91 Hemiplegia, unspecified affecting right dominant side; G90.1 Familial dysautonomia [Riley-Day]; R29.6 Repeated falls; I95.1 Orthostatic hypotension; M21.371 Foot drop, right foot; I10 Essential (primary) hypertension; E03.9 Hypothyroidism, unspecified; D56.9 Thalassemia, unspecified; F32.9 Major depressive disorder, single episode, unspecified; F10.20 Alcohol dependence, uncomplicated; D50.9 Iron deficiency anemia, unspecified; Z88.8 Allergy status to other drugs, medicaments and biological substances; Z88.1 Allergy status to other antibiotic agents; Z88.7 Allergy status to serum and vaccine; Z79.899 Other long term (current) drug therapy; Z86.711 Personal history of pulmonary embolism; Z93.1 Gastrostomy status; Z90.49 Acquired absence of other specified parts of digestive tract; Z98.1 Arthrodesis status; Z88.5 Allergy status to narcotic agent; Z91.5 Personal history of self-harm; Z90.710 Acquired absence of both cervix and uterus; Z79.890 Hormone replacement therapy
CPT/HCPCS: 36415; 70450; 71275; 72125; 80048; 80053; 80061; 80156; 80175; 80201; 82140; 82550; 82607; 82728; 82747; 83516; 83540; 83550; 83735; 84100; 84146; 84165; 84439; 84443; 84484; 85007; 85014; 85025; 85027; 85060; 86704; 86706; 86709; 86780; 87340; 87389; 87521; 93005; 93880; 93970; J1650; J2916; J3490; L0120; Q0162; Q9967

== ENCOUNTER 2019-10-27 14:55 | Outpatient (CLI) | payer OTHER ==
--- NOTE | 2019-10-27 15:32 | ULT ---
RIGHT LOWER EXTREMITY DOPPLER VENOUS ULTRASOUND PROVIDED CLINICAL HISTORY: Concern for DVT within the right lower extremity TECHNIQUE: Grayscale and color Doppler sonography with spectral analysis was performed of the right common femor al, femoral, popliteal, posterior tibial, greater saphenous and profunda femoral veins. Comparison: Prior DVT ultrasound dated October 13, 2019 FINDINGS: There is normal compression, flow and augmentation seen within the right common femoral vei n, proximal right greater saphenous vein, proximal right profunda vein and right superficial femoral vein. Partially occlusive thrombus is present within the right popliteal vein extending into the right posterior tibial vein. Flow appears slightly more pronounced than on the prior exam. IMPRESSION: Slowly improving partially occlusive thrombus within the right popliteal vein and right posterior tib ial vein.
== END 2019-10-27 14:56 | disposition home or self-care (01) ==
LOC: BICULT 14:55
PROVIDERS: ATTEND Family Medicine
DX: I82.431 Acute embolism and thrombosis of right popliteal vein (principal); I82.441 Acute embolism and thrombosis of right tibial vein

== ENCOUNTER 2019-10-31 14:43 | Inpatient (IN) | payer OTHER ==
[~2019-10-31 14:43] MED LIST: Iopamidol 370 76% 100 ML VIAL ONE
--- NOTE | 2019-10-31 15:36 | CT ---
CT Brain WO Con: 10/31/2019 3:11 PM CLINICAL HISTORY: History of fall. IMAGING TECHNIQUE: Multiple CT images were obtained of the brain without IV contrast. COMPARISON: Prior exam dated October 12, 2019 FINDINGS: Brain: No acute infarct or hemorrhage is evident. No midline shift. Ventricles: Normal. No hydrocephalus.. Skull: Intact.. Visualized Paranasal sinuses: Clear.. Mastoid air cells:Clear. Extracranial soft tissues:Normal. IMPRESSION: No acute intracranial abnormality.
[2019-10-31 15:39] LABS: Hemoglobin 7.7 g/dL (12.0-16.0); Mean Corpuscular Hemoglobin 20.3 pg (27.0-31.0); Mean Corpuscular Volume 67.6 fL (78.0-98.0); Mean Platelet Volume 6.1 fL (7.4-10.4); Platelet Count 199 thou/uL (130-400); RBC Distribution Width 23.6 % (11.5-14.5); Red Blood Cell (RBC) Count 3.77 mill/uL (4.20-5.40); White Blood Cell (WBC) Count 4.4 thou/uL (4.8-10.8)
[2019-10-31 15:40] LABS: #Eosinphils 0.1 thou/uL (0.0-0.7); #Lymphocytes 0.9 thou/uL (1.20-3.40); #Monocytes 0.4 thou/uL (0.11-0.59); %Basophils 0.4 % (0.0-1.0); %Eosinophils 1.5 % (0.0-10.0); %Lymphocytes 20.5 % (21.0-51.0); %Monocytes 9.4 % (0.0-10.0); %Neutrophils 68.2 % (42.0-75.0)
[2019-10-31 15:51] LABS: ALT (SGPT) 11 U/L (8-55); AST (SGOT) 15 U/L (5-34); Albumin 3.4 g/dL (3.5-5.0); Alkaline Phosphatase 78 U/L (40-110); Anion Gap 12 mmol/L (10-20); BUN (Urea Nitrogen) 24 mg/dL (9.8-20.1); Bilirubin, Total 0.2 mg/dL (0.2-1.2); Calc. Creatinine Clearance 0 mL/min (70-130); Calcium 8.7 mg/dL (7.8-10.44); Carbon Dioxide 28 mmol/L (22-29); Chloride 104 mmol/L (98-107); Estimated GFR-MDRD 56; Globulin 2.8 g/dL (2.4-3.5); Glucose 88 mg/dL (70-105); Potassium 3.9 mmol/L (3.5-5.1); Protein, Total 6.2 g/dL (6.0-8.3); Sodium 140 mmol/L (136-145)
--- NOTE | 2019-10-31 15:55 | CT ---
CT Cervical Spine WO Con Indication: History of fall with neck injury COMPARISON: Prior CT cervical spine dated October 12, 2019 FINDINGS: Fracture: None. Spinal alignment: No acute malalignment. Craniocervical junction: Within normal limits. Vertebral body heights: Maintained. Cervical spine degenerative change: Stable mild multilevel spondylosis of the cervical spine most pro nounced at C4-5 through C6-7. Lung apices: Clear. IMPRESSION: No acute osseous abnormality.
--- NOTE | 2019-10-31 16:04 | RAD ---
XR Hand Lt 3 View STANDARD History: Fall Comparison: Radiograph May 2019 Findings: No acute fracture or malalignment. Subtle widening of the scapholunate interval. Impression: No acute fracture or malalignment. Chronic widening of the scapholunate interval.
--- NOTE | 2019-10-31 16:05 | RAD ---
XR Foot Rt 3 View STANDARD History: Blood clot. Fall. Comparison: Radiograph May 2019 Findings: Mild demineralization. Mild soft tissue swelling of the hindfoot. No acute displaced fractu re or malalignment although demineralization does limit this evaluation. Lisfranc interval is maintained. Impression: Moderate to advanced osseous demineralization without acute fracture or malalignment.
--- NOTE | 2019-10-31 16:06 | CT ---
CTA Angio Chest W WO Con 10/31/2019 3:20 PM Indication: History of fall and history of pulmonary embolism Technique: Multiple CTA images were obtained of the thorax with IV contrast. 3-D rendering: MIP megan nstructed images were created and reviewed. Comparison: CTA of the thorax dated October 14, 2019 Findings: Respiratory motion artifact slightly limits image detail of portions of the segmental branc hes of the lower lobes. Pulmonary arteries: No definite central pulmonary embolus is evident. Heart and Aorta: Normal appearing. Mediastinum:Normal appearing. No enlarged lymph nodes. Lungs:There is a rounded nodular opacity now present within the superior segment of the right lower l obe on image 64 series 2 measuring 2.4 cm. There is surrounding reticular nodularity in the right lower lobe and portions of the right middle lobe. The degree reticular nodularity has slightly improv ed from the prior exam. The degree reticular nodularity a left lower lobe and left upper lobe on the prior examination is improved. Pleural space: Clear. Upper Abdomen: There is postsurgical change of gastric bypass and cholecystectomy. Osseous Structures: No acute osseous abnormality. There is scattered degenerative and osteoarthritic change present. Soft tissues:No abnormality. Other findings:None. Impression: 1. Central pulmonary embolus demonstrated. 2. New rounded nodular opacity within the superior segment of the right lower lobe suspicious for rou nded pneumonia. Short-term follow-up in 2-3 weeks is recommended document stability or resolution. The degree of reticular nodularity involving both lungs has improved. There is residual reticular nod ularity present within the right lower lobe and portions of the right middle lobe. Findings are suspicious for residual infectious bronchiolitis.
--- NOTE | 2019-10-31 16:06 | RAD ---
XR Knee Rt 4 View STANDARD History: Fall. Pain. Comparison: Radiograph August 2019 Findings: No acute fracture or malalignment. No significant joint effusion. Impression: No acute osseous abnormality.
[2019-10-31 16:09] LABS: Anisocytosis MODERATE=16-30 cells (100X) (0-5/hpf); Hypochromia MODERATE=16-30 cells (100X) (0-5/hpf); MDiff Complete? YES; Microcytosis MODERATE=15-30 cells (100X) (0-5/hpf); Platelet Morphology Comment Appears Adequate; Polychromasia SLIGHT = 2-3 cells (100X) (0-2/hpf); Schistocytes SLIGHT = 2-5 cells (100X) (0-1/hpf); Target Cells SLIGHT = 2-5 cells (100X) (0-1/hpf); Tear Drops SLIGHT = 2-5 cells (100X) (0-1/hpf)
[2019-10-31] MEDS ORDERED: Apixaban 5 MG TAB PO SCH (17:30)
[2019-10-31] MEDS ORDERED: Topiramate 100 MG TAB PO SCH (17:45)
[2019-10-31] MEDS ORDERED: Midodrine HCl 5 MG TAB PO SCH (17:45)
[2019-10-31] MEDS ORDERED: carBAMazepine 100 mg Chewable Tablet PO SCH (17:45)
[2019-10-31] MEDS ORDERED: Mexiletine HCl 150 MG CAP PO SCH (17:45)
--- NOTE | 2019-10-31 18:12 | PDOC.FPRHP ---
- History of Present Illness Chief Complaint: Fall History of Present Illness: 54 yo f presents to the ER after a fall. The daughter came by the house ot brain picker her mother to take her to the doctor to get a filter placed d/t having a DVT. The doors were deadbolted. She saw her mom through the window leaning against the door "looking like a zombie" and then the mom "just fell" and the daughter heard a "thud." She hurts on her fningers, knee, cheek, hands. She has bruises everywhere. Pt had been sleeping all day?? When her mom passed out, urination, tongue biting, Denies fever, chills. Endorses a cough and congestion. Endorses headache and vision changes described as constant since the overdose. Wears glasses. Endorses Syncopal Episodes: Started after Flu & EBV back in 2004 she developed dysautonomia. She is usually aware of her surroundings but does have incontinence. Ever since her overdose in March she has started having tremors with the passing out. This last episode she did not have incontinence. She has not had an EEG for these episodes. He does not think they are seizures. Episodes have become more frequent. Anemia: She has had it since she was a child. She does not tolerate oral iron. She takes liquid now, but she has chronic constipation with it. She does not experience SOB. She says she does not feel well. IVC Filter: Supposed to get today, since blood clot had moved from lower calf to her knee. Dr. Irvin Garces is her surgeon for that. She started Eliquis in March when she was in [place]. She was taken off the Eliquis here at [facility] because pulmonary embolus was identified. Last , she was restarted on Eliquis by Dr. Avery until she had the filter placed. She is taking 5 mg BID. She did not take any of her medications today, because she was sleeping up until her fall. Neurologist - Dr. Perez, last seen after . [facility] Appt 11/24/18. Programmer Business - Dr. Ramachandran (not on insurance), referred to Cardio in [place]. PCP - Dr. Avery ED Course: In the ED, She was given - Allergies/Adverse Reactions Allergies Allergy/AdvReac Type Severity Reaction Status Date / Time codeine Allergy Verified 10/13/19 15:13 gatifloxacin [From Tequin] Allergy Verified 10/13/19 15:13 levofloxacin [From Levaquin] Allergy Verified 10/13/19 15:13 pneumococcal vaccine Allergy Verified 10/13/19 15:13 - Home Medications Medication Instructions Recorded Confirmed Type DULoxetine [Cymbalta] 30 mg PO BID 10/13/19 11/01/19 History Gabapentin [Gabapentin Oral 1,200 mg PO TID 10/13/19 11/01/19 History Solution] Levothyroxine Sodium [Synthroid] 150 mcg PO QAM 10/13/19 11/01/19 History Metoprolol Tartrate 100 mg PO 1400 10/13/19 11/01/19 History Metoprolol Tartrate 200 mg PO QAM 10/13/19 11/01/19 History Mexiletine HCl 200 mg PO BID 10/13/19 11/01/19 History Midodrine HCl 20 mg PO 1400 10/13/19 11/01/19 History Midodrine HCl 20 mg PO QPM 10/13/19 11/01/19 History Midodrine HCl 30 mg PO QAM 10/13/19 11/01/19 History Pantoprazole [Protonix] 40 mg PO QAM 10/13/19 11/01/19 History Topiramate 300 mg PO HS 10/13/19 11/01/19 History carBAMazepine [Tegretol] 100 mg PO BID 10/13/19 11/01/19 History traMADol HCl [Tramadol HCl] 50 mg PO Q6HR PRN 10/13/19 11/01/19 History traZODone HCl [Trazodone HCl] 100 mg PO HS 10/13/19 11/01/19 History Apixaban [Eliquis] 5 mg PO BID 11/01/19 11/01/19 History HYDROcodone/Acetaminophen [Mon[place]rey 1 each PO Q6HR PRN 11/01/19 11/01/19 History 5-325 Tablet] - History PMHx: Anemia HTN and hypotension 2/2 dysautonomia Dysautonomia Syncope 2/2 above Recurrent DVTs (most recent two weeks ago) with h/o pulmonary embolism Seizure disorder Hypothyroidism Depression Foot drop in March 2019 Suicidality (last attempt 03/26/2019), overdose with temazepam Short-term memory loss 2/2 overdose Bipolar d/o hx of alcohol abuse, sober 6 mo PSHx: Hysterectomy Gastric bypass Raymundo Cholecystectomy C-sections x2 Spinal fusion FHx: Brother: Lymphoma Parents from [facility] Father: CABG x 2, Bipolar Mother: Migraines, hypothyroidism, hypoglycemia Brother: Esophageal cancer Social: Hx of Alcoholism, currently sober x 7 months. Denies tobacco use, denies illicit drug use. - Review of Systems General: denies: fever/chills Eyes: reports: vision changes. denies: eye pain ENT: reports: nasal congestion, rhinorrhea Respiratory: reports: cough, congestion. denies: shortness of breath Cardiovascular: reports: chest pain (recent episodes in the past few weeks; one mo ago), palpitation (with the Chest pain). denies: edema Gastrointestinal: reports: diarrhea (last time she was here, started again this week). denies: nausea, vomiting Skin: denies: rashes, lesions Musculoskeletal: reports: pain (from fall) Neurological: reports: numbness, syncope - Vital signs BP: 141/84 HR: 71 RR: 14 Tmax: 97.7 Pox: 100% on RA Wt: 57.153 kg - Physical Exam Constitutional: NAD, awake, alert and oriented -Constitutional: Difficulty with word finding HEENT: normocephalic and atraumatic, PERRLA, conjunctiva clear, no scleral icterus, normal nasal mucosa, MMM, oropharynx clear Neck: supple, trachea midline Heart: RRR, normal S1/S2, no murmurs/rubs/gallops, pulses present Lungs: CTAB, no respiratory distress, good air movement Abdomen: soft, non-tender, bowel sounds present Neurological: CN II-XII intact -Neurological: R foot drop Sensation decreased on right side Strength 5/5 except for RLE 3/5 Skin: no rash/lesions, good turgor Heme/Lymphatic: no unusual bruising or bleeding, no purpura, no petechia -Psychiatric: Deficit in short term memory. Dependent personality FMR H&P: Results - Labs Result Diagrams: 11/01/19 02:42 10/31/19 15:23 Lab results: WBC 4.4 thou/uL (4.8-10.8) L 10/31/19 15:23 Hgb 7.7 g/dL (12.0-16.0) L 10/31/19 15:23 Hct 25.5 % (36.0-47.0) L 10/31/19 15:23 MCV 67.6 fL (78.0-98.0) L 10/31/19 15:23 Plt Count 199 thou/uL (130-400) 10/31/19 15:23 Neutrophils % 68.2 % (42.0-75.0) 10/31/19 15:23 Sodium 140 mmol/L (136-145) 10/31/19 15:23 Potassium 3.9 mmol/L (3.5-5.1) 10/31/19 15:23 Chloride 104 mmol/L (98-107) 10/31/19 15:23 Carbon Dioxide 28 mmol/L (22-29) 10/31/19 15:23 BUN 24 mg/dL (9.8-20.1) H 10/31/19 15:23 Creatinine 1.03 mg/dL (0.6-1.1) 10/31/19 15:23 Glucose 88 mg/dL (70-105) 10/31/19 15:23 Calcium 8.7 mg/dL (7.8-10.44) 10/31/19 15:23 Total Bilirubin 0.2 mg/dL (0.2-1.2) 10/31/19 15:23 AST 15 U/L (5-34) 10/31/19 15:23 ALT 11 U/L (8-55) 10/31/19 15:23 Alkaline Phosphatase 78 U/L (40-110) 10/31/19 15:23 Serum Total Protein 6.2 g/dL (6.0-8.3) 10/31/19 15:23 Albumin 3.4 g/dL (3.5-5.0) L 10/31/19 15:23 FMR H&P: A/P - Problem List (1) Syncopal seizure Current Visit: No Status: Acute Code(s): R55 - SYNCOPE AND COLLAPSE; R56.9 - UNSPECIFIED CONVULSIONS (2) Right lower lobe pneumonia Current Visit: Yes Status: Acute Code(s): J18.9 - PNEUMONIA, UNSPECIFIED ORGANISM (3) History of pulmonary embolus (PE) Current Visit: No Status: Resolved Code(s): Z86.711 - PERSONAL HISTORY OF PULMONARY EMBOLISM (4) Anemia Current Visit: Yes Status: Acute Code(s): D64.9 - ANEMIA, UNSPECIFIED - Plan 54 yo f presents to the ER after a fall. PMH:Anemia, HTN and hypotension 2/2 dysautonomia, Syncope 2/2 above, Recurrent DVTs (most recent two weeks ago) with h/o pulmonary embolism, Seizure disorder, Hypothyroidism, Depression, Foot drop in March 2019, Suicidality (last attempt 03/26), overdose with temazepam, Short-term memory loss 2/2 overdose, Bipolar d/ o, hx of alcohol abuse, sober 6 mo 1. Syncopy vs. Seizure Polypharmacy noted * Will consult Cardiology (Her Programmer Business Duarte) * Will consult Neuro (Her neurologist Chris) * Will reconcile home meds * Ordered ECHO * Carotid US done on recent admission is normal * Fall precautions * Carbamazepine level ordered 2. Anemia, Iron Deficiency Hgb: 7.7, MCV: 66.2, Baseline: 7.5 * Thalassemia work-up negative at last admiision * Ferritin: 43.26 on last admission * Will consider Iron transfusion, since she is not tolerating PO well * Constipation & requires liquid iron supplementation * B12: 215, low 3. RLL PNA WBC: 4.4 * CTA Chest: showed RLL * Most likely viral in etiology * Received Rocephin in ED * Ordered Procal * BCx ordered 4. DVT/Hx of PE Eliquis 5 mg PO BID * Will continue Eliquis at this time * IVC filter placement courtney for 10/[address] Garces did not occur * Will consider Consult 5. Hypothyroidism * Will rec home meds and restart Diet: HHLSo Code Status: Full DVT PPx: SCDs, Eliquis Lines: Peripheral, SL Dispo: Tele obs, LOS <48H. FMR H&P: Upper Level - Plan Date/Time: 10/31/191811 54 yo f with a complicated pmhx of dysautonomia with hypotension and frequent syncopal spells, seizure d/o, and symptomatic anemia (primarily iron deficiency , although low b12) as well as severe depression presents today after a syncopal episode vs seizure followed by a fall. She had a recent admission where she was found down 2 weeks ago and at that time it was attributed to a seizure. She was seen by Dr. Perez and her PCP afterwards. I am not sure if an EEG has been done. She is taking carbamazepine for her seizure disorder but still seems to be having recurrent episodes of either seizures or syncopal spells. She has been evaluated by cardiology in the past ( 2016) who diagnosed her with dysautonomia with hypotension, however she seems to be having recurrents events that warrant a cardiology and neurology consult inpatient. Additionally, she has symptomatic anemia, primarily iron deficient anemia. But, she was also found to have low vit b12 during her prior hospitalization. The labs for thalassemia were negative. She struggles taking iron po and because of this has required iron infusions in the past. I would consider an additional infusion tomorrow as well. She also has bipolar d/o with recurrent depressive episodes, and in March 2019 attempted suicide. She takes duloxetine and trazodone. She reports "sleeping all day" and today especially, she woke up and per her daughter "looked like a zombie." The patient doesn't remember today at all. I would consider decreasing the trazodone dose d/t my concern for overly medicating this pt. She has a hx of migraines as well for which she takes topamax daily. We will do a thorough medication reconciliation on this pt as well. She will be admitted to tele obs to observe for any evidence of arrythmias that could be causing her frequent syncopal episodes. She recently has a thorough syncopal workup to include an echo and carotid ultrasound which was wnl. Her blood pressure medications may need to be decreased if hypotension is the cause of her syncopal spells. We will consult cardiology for medication recommendations. However, her episodes lately have included incontinence, which makes me concerned for seizures. And as a result, we may need to increase her carbamazepine. We will consult neurology for recommendations. We will monitor her closely overnight. She also has a hx of recurrent DVT and a pulmonary embolus, and she was supposed to see Dr. Garces today for placement of an IVC filter. We will consult Dr. Garces in the am to let him know that his pt is here. She also was found to have a possible right lower lobe infiltrate concerning for a viral bronchitis. She is afebrile, VSS, and no white count. She was given rocephin in the ED for a bacterial pneumonia. We will get a procal, however I have a low suspicion that this is a bacterial pneumonia. Jackie Howard MD, PGY-3 have evaluated this patient and agree with findings/ plan as outlined by quality assurance intern resident. Pertinent changes/additions are listed here. Addendum - Attending - Attending Attestation Date/Time: 11/01/19 [id number] I personally evaluated the patient and discussed the management with the team on 10/31. I agree with the History, Examination, Assessment and Plan documented above with any addition or exceptions noted below. The patient has a strong history of overmedication which I believe contributed to the most recent and most prior episodes. She has had at least one episode with LOB/Urine incontinence. She has been previously assessed for an arrhythmia and has had EEG's in 2004. She had a provoked DVT/PE and I am unsure of the benefit of a filter.
[2019-10-31] MEDS ORDERED: cefTRIAXone\\ROCEPHIN 2 GM VIAL ONE (18:18)
[2019-10-31 21:00] VITALS: BMI 20.3
[2019-10-31] MEDS ORDERED: Senokot S 8.6-50 MG TAB PO PRN (21:22)
[2019-10-31] MEDS ORDERED: Acetaminophen 325 MG TAB ONE ×2 (22:31)
[2019-10-31] MEDS: Acetaminophen 325 MG TAB PO PRN (22:33)
[2019-11-01 02:56] LABS: Hemoglobin 7.4 g/dL (12.0-16.0); Mean Corpuscular HGB CONC 30.3 g/dL (32.0-36.0); Mean Corpuscular Volume 66.2 fL (78.0-98.0); Mean Platelet Volume 5.8 fL (7.4-10.4); Platelet Count 192 thou/uL (130-400); RBC Distribution Width 23.7 % (11.5-14.5); White Blood Cell (WBC) Count 3.7 thou/uL (4.8-10.8)
[2019-11-01 03:30] LABS: #Eosinphils 0.1 thou/uL (0.0-0.7); #Monocytes 0.4 thou/uL (0.11-0.59); #Neutrophils 2.1 thou/uL (1.40-6.50); %Basophils 0.2 % (0.0-1.0); %Lymphocytes 28.5 % (21.0-51.0); %Monocytes 10.1 % (0.0-10.0); %Neutrophils 58.2 % (42.0-75.0); Anisocytosis MODERATE=16-30 cells (100X) (0-5/hpf); Hypochromia SLIGHT = 6-15 cells (100X) (0-5/hpf); MDiff Complete? YES; Microcytosis MODERATE=15-30 cells (100X) (0-5/hpf)
[2019-11-01] MEDS ORDERED: HYDROcodone/Acetaminophen 5/325 mg Tablet ONE (03:33)
[2019-11-01 03:35] LABS: Carbamazepine-Tegretol 5.4 ug/mL (4.0-12.0)
[2019-11-01] MEDS ORDERED: Ketorolac Tromethamine 30 MG/ML VIAL IVP SCH (04:45)
[2019-11-01] MEDS ORDERED: Ketorolac Tromethamine 30 MG/ML VIAL ONE (05:15)
--- NOTE | 2019-11-01 05:30 | PDOC.FM ---
- Subjective Subjective: Ms. Caceres is doing well this morning. She is having chills and feels ill, possibly related to viral illness. - Objective MAR Reviewed: Yes Vital Signs & Weight: Vital Signs (12 hours) Temp Pulse Resp BP Pulse Ox 11/01/19 04:23 98.9 F 73 17 116/69 96 11/01/19 00:05 99 F 68 14 118/74 96 10/31/19 20:58 99 F 76 16 141/84 H 99 Weight Weight 57.153 kg Result Diagrams: 11/01/19 02:42 10/31/19 15:23 Phys Exam - Physical Examination Constitutional: NAD HEENT: PERRLA, moist MMs, sclera anicteric Neck: no nodes, supple, full ROM Respiratory: no wheezing, no rales, no rhonchi, clear to auscultation bilateral Cardiovascular: RRR, no significant murmur Gastrointestinal: soft, non-tender, no distention Musculoskeletal: no edema, pulses present Neurological: non-focal, moves all 4 limbs Psychiatric: normal affect, A&O x 3 Skin: no rash, normal turgor, cap refill <2 seconds Dx/Plan (1) Anemia Code(s): D64.9 - ANEMIA, UNSPECIFIED Status: Acute (2) Deep vein thrombosis (DVT) of popliteal vein of right lower extremity Code(s): I82.431 - ACUTE EMBOLISM AND THROMBOSIS OF RIGHT POPLITEAL VEIN Status: Acute Qualifiers: Chronicity: acute Qualified Code(s): I82.431 - Acute embolism and thrombosis of right popliteal vein (3) Orthostatic hypotension Code(s): I95.1 - ORTHOSTATIC HYPOTENSION Status: Acute (4) Syncopal seizure Code(s): R55 - SYNCOPE AND COLLAPSE; R56.9 - UNSPECIFIED CONVULSIONS Status: Acute (5) Dysautonomia Code(s): G90.9 - DISORDER OF THE AUTONOMIC NERVOUS SYSTEM, UNSPECIFIED Status : Chronic (6) Hypertension Code(s): I10 - ESSENTIAL (PRIMARY) HYPERTENSION Status: Chronic Qualifiers: Hypertension type: essential hypertension Qualified Code(s): I10 - Essential (primary) hypertension (7) History of pulmonary embolus (PE) Code(s): Z86.711 - PERSONAL HISTORY OF PULMONARY EMBOLISM Status: Resolved - Plan Plan: LOC: Syncope vs. seizure - Patient has longstanding history of similar spells. Her health has significantly declined since March. - Polypharmacy likely a contributor - Will consult cardiology and neurology today - ECHO pending - Carbamazepine level within range [5.4 (4-12)] Anemia, predominantly iron deficient - Thalassemia work-up negative at last admiision - plan for iron transfusion while she is here - B12 very low, will supplement RLL pneumonia - CTA Chest: showed RLL - Most likely viral in etiology - Procal negative, blood cultures pending. - Will continue symptom management DVT w/ History of PE - Eliquis 5 mg PO BID - Will continue Eliquis at this time - IVC filter placement courtney for 10/[address] Garces did not occur - Will contact Dr. Garces for recommendations. Hypothyroidism - On Levothyroxine 150mcg and TSH is very suppressed. Will consider lowering dose. - Reordered Diet: HHLSo Code Status: Full DVT PPx: SCDs, Eliquis Lines: Peripheral, SL Dispo: Tele obs, LOS likely <48H.
[2019-11-01] MEDS ORDERED: traMADol HCl 50 MG TAB PO PRN (08:25)
[2019-11-01] MEDS ORDERED: Levothyroxine 150 MCG TAB PO SCH (09:00)
[2019-11-01] MEDS ORDERED: Iron Sucrose Complex 200 MG in Sodium Chloride 0.9% 250 ML 250 ML IVPB SCH (09:30)
[2019-11-01] MEDS: Apixaban 5 MG TAB PO SCH ×2 (09:53→20:57)
[2019-11-01] MEDS: Gabapentin 300 MG CAP PO SCH ×3 (09:53→20:57)
[2019-11-01] MEDS: DULoxetine 30 MG CAP PO SCH ×2 (09:53→20:57)
[2019-11-01] MEDS: Metoprolol Tartrate 100 MG TAB PO SCH ×2 (09:53→17:57)
[2019-11-01] MEDS: carBAMazepine 100 mg Chewable Tablet PO SCH ×2 (09:53→20:57)
[2019-11-01] MEDS ORDERED: Iron, Sodium Ferric Gluconate 250 MG in Sodium Chloride 0.9% 100 ML IVPB SCH (10:30)
[2019-11-01] MEDS ORDERED: Multivitamins, Adult 10 ML, Folic Acid 1 MG, Thiamine HCl 100 MG in Dextrose 5 %-0.45 %... IV SCH ×2 (11:00→14:00)
[2019-11-01] MEDS: Acetaminophen 325 MG TAB PO PRN (14:01)
[2019-11-01] MEDS ORDERED: Acetaminophen 325 MG TAB ONE (14:01)
--- NOTE | 2019-11-01 16:53 | CON ---
DATE OF CONSULTATION: 11/01/2019 HISTORY OF PRESENT ILLNESS: Ms. Caceres is a 54-year-old woman, who initially had a DVT/pulmonary embolism in [place], where she was anticoagulated on Eliquis. She has a history of multiple syncopal episodes and dystonia. She has had multiple falls while being anticoagulated. She was seen back at [facility] in April after one month of anticoagulation and had her anticoagulation stopped as there was no further noted DVT or pulmonary embolism. She has had recurrent DVT in the right leg and has been restarted on Eliquis. She continues to have falls and was admitted with a fall and a bump to the head. She has had no neurologic sequela. She is currently resting comfortably in bed without complaint. PAST MEDICAL HISTORY: 1. DVT, pulmonary embolism with contraindication to anticoagulation due to falls. 2. Anemia. 3. Hypertension. 4. Dysautonomia. 5. Syncope. 6. Seizure disorder. 7. Hypothyroidism. 8. Depression. 9. History of footdrop. 10. History of multiple overdoses. 11. Bipolar disorder. 12. History of alcohol abuse. PAST SURGICAL HISTORY: 1. Hysterectomy. 2. Gastric bypass. 3. Appendectomy. 4. Cholecystectomy. 5. C-sections. 6. Spinal fusion. FAMILY HISTORY: As noted. SOCIAL HISTORY: She has a history of alcoholism. Does not use tobacco or other illicit drugs. REVIEW OF SYSTEMS: Ten-point review of systems performed is negative except as above. PHYSICAL EXAMINATION: GENERAL: This is a well-developed, well-nourished woman, resting comfortably. VITAL SIGNS: Height is 5 feet 6 inches, weight is 226 pounds. BSA is 1.63. Temperature is 98.6, pulse is 69 and regular, and blood pressure is 119/61. LUNGS: Clear bilaterally. CARDIAC: Heart rhythm is regular without murmur. ABDOMEN: Soft and nontender without mass. EXTREMITIES: No edema. DIAGNOSTIC DATA: I have reviewed her radiology studies. ASSESSMENT AND PLAN: Deep venous thrombosis/pulmonary embolism with contraindication to anticoagulation due to falls. I have discussed permanent inferior vena cava filter placement as she has had recurrent deep venous thrombosis and pulmonary embolism. She is agreeable. We will plan to place it tomorrow via left groin access. Job ID: [id number]
--- NOTE | 2019-11-01 16:57 | PRG ---
DATE OF SERVICE: 11/01/2019 CONSULTING PHYSICIAN: Family Medicine Service. Ms. Caceres was admitted after being found unconscious on her floor. Her daughter found her behind the door. She has had a long history of problems with orthostatic hypotension. She has been on 2 different medications with limited success. We are trying to obtain approval for [employer]. We are having some difficulty with the insurance company at this point. She has been put on IV fluids. Her medicines have not been restarted. There is nothing in particular, we can do different at this juncture. I would be happy to follow up with her as an outpatient. Job ID: [id number]
--- NOTE | 2019-11-01 19:10 | CON ---
DATE OF CONSULTATION: 11/01/2019 REASON FOR CONSULTATION: 1. Recurrent neurocardiogenic syncope. 2. History of deep venous thrombosis. 3. Severe iron deficiency. 4. Recurrent falling. HISTORY OF PRESENT ILLNESS: Ms. Caceres is a very pleasant 54-year-old patient. She states she was doing well up until last Spring when she took a trip to [place] to visit on vacation. Apparently, she took too much of a sedative and laid still for a prolonged time and developed a footdrop. Also, probably developed deep venous thrombosis. She was given Eliquis, but taken off after about a month because she was having recurrent syncopal episodes. She has been readmitted. She has had recurrent syncopal episodes, now deep venous thrombosis with severe anemia and falling and will have to have a filter placed. The patient has a long history of severe neurocardiogenic syncope. MEDICINES: Please see the nurse's note. She is on midodrine plus a host of other medicines to try to help her regulate her blood pressure. ALLERGIES: PLEASE SEE NURSE'S. SOCIAL HISTORY: No alcohol or tobacco. PHYSICAL EXAMINATION: GENERAL: This is a pleasant 54-year-old patient, resting comfortably, in no distress. VITAL SIGNS: Blood pressure is variable, but it is as low as 84/52. Pulse is 70. LUNGS: Clear. CARDIAC: Normal S1, normal S2. ABDOMEN: Soft and nontender. EXTREMITIES: There is no edema on the left, mild on the right. ASSESSMENT: 1. Recurrent deep venous thrombosis. 2. Iron deficiency anemia, recurrent falling. 3. Severe neurocardiogenic syncope. PLAN: 1. We will continue with intravenous iron infusions. 2. Dr. Perez is trying to help get her Northera, the patient is having syncopal episodes with no warning. Job ID: [id number]
[2019-11-01] MEDS: Iron, Sodium Ferric Gluconate 250 MG in Sodium Chloride 0.9% 100 ML IVPB SCH (20:57)
[2019-11-01] MEDS: Topiramate 100 MG TAB PO SCH (20:58)
[2019-11-01] MEDS: Ondansetron ODT 4 MG TAB PO PRN (22:51)
[2019-11-02] MEDS: Levothyroxine Sodium 125 MCG TAB PO SCH (06:09)
[2019-11-02] MEDS: Metoprolol Tartrate 100 MG TAB PO SCH ×2 (06:09→15:18)
--- NOTE | 2019-11-02 06:15 | PDOC.FM ---
- Subjective Subjective: Patient is doing well this morning. States her head is sore from the fall. - Objective MAR Reviewed: Yes Vital Signs & Weight: Vital Signs (12 hours) Temp Pulse Resp BP Pulse Ox 11/02/19 04:00 98.9 F 69 16 142/84 H 96 11/01/19 23:05 99.3 F 76 16 132/76 95 11/01/19 19:40 98.7 F 71 12 112/66 96 Weight Weight 57.153 kg I&O: 10/31/19 11/01/19 11/02/19 06:59 06:59 06:59 Intake Total 600 Output Total 750 Balance -150 Result Diagrams: 11/01/19 02:42 10/31/19 15:23 Phys Exam - Physical Examination Constitutional: NAD HEENT: PERRLA, moist MMs, sclera anicteric Echymosis appearing around right eye Neck: no nodes, no JVD, supple Respiratory: no wheezing, no rales, no rhonchi, clear to auscultation bilateral Cardiovascular: RRR, no significant murmur, no rub Gastrointestinal: soft, non-tender, no distention, positive bowel sounds Musculoskeletal: no edema, pulses present Neurological: non-focal, normal sensation, moves all 4 limbs Psychiatric: normal affect, A&O x 3 Skin: no rash, normal turgor, cap refill <2 seconds Dx/Plan (1) Anemia Code(s): D64.9 - ANEMIA, UNSPECIFIED Status: Acute (2) Deep vein thrombosis (DVT) of popliteal vein of right lower extremity Code(s): I82.431 - ACUTE EMBOLISM AND THROMBOSIS OF RIGHT POPLITEAL VEIN Status: Acute Qualifiers: Chronicity: acute Qualified Code(s): I82.431 - Acute embolism and thrombosis of right popliteal vein (3) Orthostatic hypotension Code(s): I95.1 - ORTHOSTATIC HYPOTENSION Status: Acute (4) Syncopal seizure Code(s): R55 - SYNCOPE AND COLLAPSE; R56.9 - UNSPECIFIED CONVULSIONS Status: Acute (5) Dysautonomia Code(s): G90.9 - DISORDER OF THE AUTONOMIC NERVOUS SYSTEM, UNSPECIFIED Status : Chronic (6) Hypertension Code(s): I10 - ESSENTIAL (PRIMARY) HYPERTENSION Status: Chronic Qualifiers: Hypertension type: essential hypertension Qualified Code(s): I10 - Essential (primary) hypertension (7) History of pulmonary embolus (PE) Code(s): Z86.711 - PERSONAL HISTORY OF PULMONARY EMBOLISM Status: Resolved - Plan Plan: Syncope vs seizure - Patient has longstanding history of similar spells. Her health has significantly declined since March. - Neurology consulted, they are working to get her approved for [employer], they will follow her outpatient. - Polypharmacy likely a contributor - Cardiology consulted, appreciate recommendations - ECHO pending - Carbamazepine level within range [5.4 (4-12)] Anemia, predominantly iron deficient - Continue iron supplementation. RLL pneumonia - CTA Chest: showed RLL - Most likely viral in etiology - Procal negative, blood cultures pending. - Will continue symptom management DVT w/ History of PE - Eliquis 5 mg PO BID - Will continue Eliquis at this time - IVC filter placement planned for today, with Dr. Garces. Hypothyroidism - On Levothyroxine and TSH is very suppressed. - Decreased dose to 125mcg. Diet: HHLSo Code Status: Full DVT PPx: SCDs, Eliquis Lines: Peripheral, SL Dispo: Tele obs, LOS likely <48H.
--- NOTE | 2019-11-02 08:01 | PRG ---
DATE OF SERVICE: 11/01/2019 ADDENDUM: This is an addendum to the note of Dr. Anaid Hammond. I have examined the patient. I agreed with the assessment and plan as performed by Dr. Anaid Hammond. Job ID: [id number]
[2019-11-02] MEDS: Gabapentin 300 MG CAP PO SCH ×3 (09:17→21:31)
[2019-11-02] MEDS: carBAMazepine 100 mg Chewable Tablet PO SCH ×2 (09:17→21:33)
[2019-11-02] MEDS: DULoxetine 30 MG CAP PO SCH ×2 (09:17→21:30)
[2019-11-02] MEDS: Apixaban 5 MG TAB PO SCH ×2 (09:17→21:30)
[2019-11-02] MEDS ORDERED: Iron, Sodium Ferric Gluconate 250 MG in Sodium Chloride 0.9% 100 ML IVPB SCH (09:30)
[2019-11-02] MEDS ORDERED: Heparin (Artline) 500 ML ONE (09:54)
[2019-11-02] MEDS ORDERED: Iopamidol 370 76% 50 ML VIAL FS ONE (10:55)
[2019-11-02] MEDS: Iron, Sodium Ferric Gluconate 250 MG in Sodium Chloride 0.9% 100 ML IVPB SCH (11:31)
[2019-11-02] MEDS: Acetaminophen 325 MG TAB PO PRN ×2 (11:33→21:30)
[2019-11-02 15:10] LABS: Folate,Hemolysate 318.1 ng/mL (Not Estab.); Hematocrit 25.1 % (34.0-46.6); RBC Folate Test Component 1267 ng/mL (>498)
[2019-11-02] MEDS: Midodrine HCl 5 MG TAB PO SCH (15:19)
--- NOTE | 2019-11-02 15:20 | OP ---
DATE OF PROCEDURE: 11/02/2019 PREOPERATIVE DIAGNOSIS: Recurrent deep venous thrombosis/pulmonary embolism with contraindication to anticoagulation. POSTOPERATIVE DIAGNOSIS: Recurrent deep venous thrombosis/pulmonary embolism with contraindication to anticoagulation. PROCEDURES PERFORMED: 1. Inferior vena cavogram. 2. Inferior vena cava filter placement. ANESTHESIA: 1% lidocaine for local. DESCRIPTION OF PROCEDURE: The patient was brought to the bottle label inspector, placed in supine position on the bottle label inspector table. Appropriate monitoring was placed. The groins were prepped and draped in usual sterile fashion. Using ultrasound guidance, the left groin was anesthetized with 1% lidocaine. Next, percutaneous access to common femoral vein was obtained and guidewire passed. About this time, the patient began to experience loss of the ability to communicate. This lasted for about a minute. She was bradycardic during this episode, in which she became coherent against that this was very typical with what she has when she has her seizures. We elected to go ahead and place a filter at this time. Hand-injected vena cavogram was performed with vena cava catheter. The right renal vein was the lowest renal vein located at the L2-L3 interspace. The tip of the filter was placed with its tip at the lower border of L2 and deployed. The filter seated nicely. The sheath was removed and manual pressure held for hemostasis. The patient was transferred back to her room in stable condition. Job ID: [id number]
[2019-11-02] MEDS ORDERED: Midodrine HCl 5 MG TAB PO SCH (21:00)
[2019-11-02] MEDS: Topiramate 100 MG TAB PO SCH (21:34)
[2019-11-03] MEDS: Levothyroxine Sodium 125 MCG TAB PO SCH (04:58)
--- NOTE | 2019-11-03 05:36 | PDOC.FM ---
- Subjective Subjective: Ms. Caceres is doing well this morning, no complaints. - Objective MAR Reviewed: Yes Vital Signs & Weight: Vital Signs (12 hours) Temp Pulse Resp BP Pulse Ox 11/03/19 03:35 98.4 F 60 12 106/64 97 11/02/19 23:23 98.6 F 60 15 129/70 97 11/02/19 19:28 98.9 F 60 15 133/82 97 Weight Admit Weight 57.153 kg Weight 54.658 kg I&O: 11/01/19 11/02/19 11/03/19 06:59 06:59 06:59 Intake Total 600 440 Output Total 750 1600 Balance -150 -1160 Result Diagrams: 11/01/19 02:42 10/31/19 15:23 Phys Exam - Physical Examination Constitutional: NAD HEENT: PERRLA, moist MMs, sclera anicteric Neck: supple, full ROM Respiratory: no wheezing, no rales, no rhonchi, clear to auscultation bilateral Cardiovascular: RRR, no significant murmur, no rub Gastrointestinal: soft, non-tender, no distention Musculoskeletal: no edema, pulses present Neurological: non-focal, normal sensation, moves all 4 limbs Psychiatric: normal affect, A&O x 3 Skin: no rash, normal turgor Dx/Plan (1) Anemia Code(s): D64.9 - ANEMIA, UNSPECIFIED Status: Acute (2) Deep vein thrombosis (DVT) of popliteal vein of right lower extremity Code(s): I82.431 - ACUTE EMBOLISM AND THROMBOSIS OF RIGHT POPLITEAL VEIN Status: Acute Qualifiers: Chronicity: acute Qualified Code(s): I82.431 - Acute embolism and thrombosis of right popliteal vein (3) Orthostatic hypotension Code(s): I95.1 - ORTHOSTATIC HYPOTENSION Status: Acute (4) Syncopal seizure Code(s): R55 - SYNCOPE AND COLLAPSE; R56.9 - UNSPECIFIED CONVULSIONS Status: Acute (5) Dysautonomia Code(s): G90.9 - DISORDER OF THE AUTONOMIC NERVOUS SYSTEM, UNSPECIFIED Status : Chronic (6) Hypertension Code(s): I10 - ESSENTIAL (PRIMARY) HYPERTENSION Status: Chronic Qualifiers: Hypertension type: essential hypertension Qualified Code(s): I10 - Essential (primary) hypertension (7) History of pulmonary embolus (PE) Code(s): Z86.711 - PERSONAL HISTORY OF PULMONARY EMBOLISM Status: Resolved - Plan Plan: Syncope vs seizure - Patient has longstanding history of similar spells. Her health has significantly declined since March. - Neurology consulted, they are working to get her approved for [facility], they will follow her outpatient. - Polypharmacy likely a contributor - Cardiology consulted, appreciate recommendations - ECHO results pending - Carbamazepine level within range [5.4 (4-12)] - Patient will likely be discharged today with close follow up with her neurologist and senior account representative. Anemia, predominantly iron deficient - Continue iron supplementation. RLL pneumonia - CTA Chest: showed RLL - Most likely viral in etiology - Procal negative, blood cultures pending. - Will continue symptom management DVT w/ History of PE - IVC filter placed 11/02/19. - Will discontinue Eliquis, as patient is at significant risk of intracranial bleeding with her frequent falls. - Dr. Ramachandran consulted and we will send home with event recorder for 1 week to evaluate for arrhythmia. Hypothyroidism - On Levothyroxine and TSH is very suppressed. - Decreased dose to 125mcg. Diet: HHLSo Code Status: Full DVT PPx: SCDs Lines: Peripheral, SL Dispo: Tele obs, LOS likely <48H.
[2019-11-03] MEDS ORDERED: Midodrine HCl 5 MG TAB PO SCH ×2 (09:00→17:00)
[2019-11-03] MEDS: Gabapentin 300 MG CAP PO SCH ×2 (09:07→14:31)
[2019-11-03] MEDS: DULoxetine 30 MG CAP PO SCH (09:07)
[2019-11-03] MEDS: carBAMazepine 100 mg Chewable Tablet PO SCH (09:07)
[2019-11-03] MEDS: Metoprolol Tartrate 100 MG TAB PO SCH ×2 (09:08→14:30)
[2019-11-03] MEDS: Acetaminophen 325 MG TAB PO PRN (12:39)
[2019-11-03] MEDS: Ondansetron ODT 4 MG TAB PO PRN (12:39)
--- NOTE | 2019-11-03 13:48 | PRG ---
DATE OF SERVICE: 11/03/2019 SUBJECTIVE: Ms. Caceres underwent placement of a filter yesterday, placing the sheath it sound like she had a vagal reaction and got very bradycardic and near syncopal. The patient is doing well now. OBJECTIVE: VITAL SIGNS: Her blood pressure is 124/83, pulse 56 and regular. LUNGS: Clear. CARDIAC: Normal S1. Normal S2. ABDOMEN: Soft and nontender. ASSESSMENT: 1. Severe neurocardiogenic syncope. 2. Probable vagal episode with placing a sheath. 3. Status post IVC filter. 4. Recurrent falls. PLAN: 1. Reduce metoprolol to 100 mg twice a day, consideration for changing to metoprolol succinate 200 mg a day. 2. Event monitor will be arranged as an outpatient. Job ID: [id number]
[2019-11-03] MEDS: Midodrine HCl 5 MG TAB PO SCH (14:31)
[2019-11-03 15:10] LABS: Hemoglobin A2 1.4 % (1.8-3.2); Hemoglobin F 0 % (0.0-2.0); Interpretation Note: (.)
[2019-11-03 15:35] VITALS: BP 129/89; TEMP 98.7
[2019-11-04] MEDS ORDERED: Cyanocobalamin (Vitamin B-12) 1,000 MCG TAB PO SCH (09:00)
[2019-11-04] MEDS ORDERED: Metoprolol Tartrate 100 MG TAB PO SCH (09:00)
== END 2019-11-03 16:32 | disposition home or self-care (01) | DRG 252 ==
LOC: ERS 14:43 → ERHOLD 20:00 → OBSVTOIN 20:00 → 2SW 11-01 15:53
PROVIDERS: ADMIT Emergency Medicine; ATTEND Emergency Medicine
PROC: 06H03DZ Insertion of Intraluminal Device into Inferior Vena Cava, Percutaneous Approach (ICD-10-PCS; principal; 2019-11-02)
DX: I82.431 Acute embolism and thrombosis of right popliteal vein (principal); J12.9 Viral pneumonia, unspecified; R55 Syncope and collapse; I10 Essential (primary) hypertension; G40.909 Epilepsy, unspecified, not intractable, without status epilepticus; F32.9 Major depressive disorder, single episode, unspecified; E03.9 Hypothyroidism, unspecified; G90.1 Familial dysautonomia [Riley-Day]; Z90.710 Acquired absence of both cervix and uterus; Z90.49 Acquired absence of other specified parts of digestive tract; Z98.84 Bariatric surgery status; D50.9 Iron deficiency anemia, unspecified
CPT/HCPCS: 36415; 36416; 37191; 70450; 71275; 72125; 80053; 80156; 82747; 83021; 83921; 84145; 84443; 84484; 85025; 87040; 93005; 93306; 94760; 96374; C1769; C1880; J0696; J1644; J1885; J2916; J3411; J3490; J7042; L0120; Q0162; Q9967

== ENCOUNTER 2019-11-18 11:03 | Observation (INO) | payer OTHER ==
[2019-11-18] MEDS ORDERED: hydrALAZINE 20 MG/ML VIAL ONE (12:15)
[2019-11-18 12:23] LABS: #Basophils 0.1 thou/uL (0.0-0.2); #Eosinphils 0.1 thou/uL (0.0-0.7); #Lymphocytes 2.4 thou/uL (1.20-3.40); #Monocytes 0.6 thou/uL (0.11-0.59); #Neutrophils 2.9 thou/uL (1.40-6.50); %Eosinophils 1.5 % (0.0-10.0); %Lymphocytes 39.5 % (21.0-51.0); %Monocytes 9.1 % (0.0-10.0); Hemoglobin 10.7 g/dL (12.0-16.0); Mean Corpuscular HGB CONC 31.8 g/dL (32.0-36.0); Mean Corpuscular Hemoglobin 23.3 pg (27.0-31.0); Mean Corpuscular Volume 73.4 fL (78.0-98.0); Mean Platelet Volume 5.6 fL (7.4-10.4); Platelet Count 286 thou/uL (130-400); RBC Distribution Width 29.3 % (11.5-14.5); Red Blood Cell (RBC) Count 4.58 mill/uL (4.20-5.40)
[2019-11-18 12:36] LABS: Anisocytosis MODERATE=16-30 cells (100X) (0-5/hpf); Hypochromia SLIGHT = 6-15 cells (100X) (0-5/hpf); MDiff Complete? YES; Microcytosis SLIGHT = 6-15 cells (100X) (0-5/hpf); Ovalocytes SLIGHT = 2-5 cells (100X) (0-1/hpf); Platelet Morphology Comment Appears Adequate; Polychromasia SLIGHT = 2-3 cells (100X) (0-2/hpf); Target Cells SLIGHT = 2-5 cells (100X) (0-1/hpf)
[2019-11-18 12:44] LABS: ALT (SGPT) 7 U/L (8-55); AST (SGOT) 11 U/L (5-34); Albumin 3.8 g/dL (3.5-5.0); Alkaline Phosphatase 96 U/L (40-110); Anion Gap 12 mmol/L (10-20); BUN (Urea Nitrogen) 18 mg/dL (9.8-20.1); Bilirubin, Total Less than 0.2 mg/dL (0.2-1.2); Calc. Creatinine Clearance 0 mL/min (70-130); Calcium 9.2 mg/dL (7.8-10.44); Carbon Dioxide 30 mmol/L (22-29); Chloride 98 mmol/L (98-107); Estimated GFR-MDRD 60; Globulin 3.3 g/dL (2.4-3.5); Glucose 76 mg/dL (70-105); Protein, Total 7.1 g/dL (6.0-8.3); Sodium 137 mmol/L (136-145)
--- NOTE | 2019-11-18 12:46 | CT ---
EXAM: CTA of the chest HISTORY: Hemoptysis COMPARISON: None TECHNIQUE: Multiple contiguous axial images were obtained a CTA of the chest with contrast per pulmon deangelo embolism protocol. 3-D oblique MIP reformats and direct coronal reformats were performed. FINDINGS: HEART: Normal in size without focal cardiac abnormality. PULMONARY ARTERIES: Normal in caliber without filling defects to suggest pulmonary emboli. MEDIASTINUM: No hilar or mediastinal lymphadenopathy. LUNGS: There is a round area of consolidation in the right lower lobe which is stable in size compare d to the prior examination. However, it appears to be undergoing central cavitation with an air bubble in the center of this area of opacity. PLEURAL SPACE: No pleural effusion or pneumothorax. CHEST WALL SOFT TISSUES: Unremarkable VISUALIZED OSSEOUS STRUCTURES: Unremarkable VISUALIZED SUBDIAPHRAGMATIC STRUCTURES: Status post cholecystectomy and gastric surgery. Partially vi sualized IVC filter. IMPRESSION: 1. No evidence of pulmonary thromboembolism 2. Right lower lobe opacity with central cavitation versus necrosis. This could represent an infectio us or malignant process.
--- NOTE | 2019-11-18 12:46 | CT ---
CT HEAD WITHOUT CONTRAST: HISTORY: The patient is not feeling well. Injury after a fall. The patient continues to drop objects. Pounding headache and vision changes. COMPARISON: 10/31/2019 FINDINGS: There is no evidence of a hemorrhage, acute infarction, mass effect or midline shift. The ventricular system is normal in size, shape and position. The visualized paranasal sinuses and mastoid air cell s are clear. No calvarial fracture is seen. CT head is stable compared to the prior exam. IMPRESSION: No acute intracranial abnormality is demonstrated. POS: HEAVEN
[2019-11-18 12:52] LABS: Potassium 2.9 mmol/L (3.5-5.1)
[2019-11-18] MEDS ORDERED: Acetaminophen 325 MG TAB ONE (13:31)
--- NOTE | 2019-11-18 14:43 | PDOC.FPRHP ---
- History of Present Illness Chief Complaint: coughing up blood History of Present Illness: Patient is a 54F with PMHX of dysautonomia reflex sympathetic dystrophy, pseudoseizures, HTN, asthma, IVC filter placement, hypothyroidism, depression, foot drop since suicide attempt in March 2019, anemia, hx of alcohol abuse, that presents with hemoptysis. Patient reports that she started "coughing up blood" 3 days ago. She states that she will have 3-4 bouts of hemoptysis per day, coughing up approximately a spoonful of blood each time. She reports of SOB during her episodes of coughing. She denies chest pain, vomiting, diarrhea, fever. Reports of some night sweats throughout the last few weeks and a few chills. She also reports of feeling unlike herself the last several days, including dropping items. She denies sensory or motor deficits. She also reports of seizure-like activity yesterday; followed by Dr. Perez outpatient. PCP: [facility] ED Course: 40meq KCl, 650mg tylenol, 10mg hydralazine, 1L NS - Allergies/Adverse Reactions Allergies Allergy/AdvReac Type Severity Reaction Status Date / Time codeine Allergy Hives Verified 11/18/19 16:30 gatifloxacin [From Tequin] Allergy Verified 11/18/19 16:30 Influenza Virus Vaccines Allergy Verified 11/18/19 16:30 levofloxacin [From Levaquin] Allergy Verified 11/18/19 16:30 pneumococcal vaccine Allergy Anaphylaxis Verified 11/18/19 16:30 - Home Medications Medication Instructions Recorded Confirmed Type DULoxetine [Cymbalta] 30 mg PO BID 10/13/19 11/18/19 History Mexiletine HCl 200 mg PO BID 10/13/19 11/18/19 History Midodrine HCl 10 mg PO 1200 10/13/19 11/18/19 History Midodrine HCl 10 mg PO 1700 10/13/19 11/18/19 History Midodrine HCl 15 mg PO QAM 10/13/19 11/18/19 History Pantoprazole [Protonix] 40 mg PO QAM 10/13/19 11/18/19 History Topiramate 300 mg PO HS 10/13/19 11/18/19 History carBAMazepine [Tegretol] 200 mg PO BID 10/13/19 11/18/19 History Metoprolol Tartrate [Lopressor] 100 mg PO BID tab 11/03/19 11/18/19 Rx Gabapentin [Neurontin] 1,200 mg PO TID 11/18/19 11/18/19 History Levothyroxine Sodium [Synthroid] 150 mcg PO 0600 11/18/19 11/18/19 History Melatonin 3 mg PO HS 11/18/19 11/18/19 History traZODone HCl [Trazodone HCl] 100 mg PO HS 11/18/19 11/18/19 History - History PMHx: dysautonomia reflex sympathetic dystrophy, pseudoseizures, HTN, asthma, IVC filter placement, hypothyroidism, depression, foot drop since suicide attempt in March 2019, anemia, hx of alcohol abuse PSHx: hysterectomy, gastric bypass, appendectomy, cholecystectomy, x2 , spinal fusion S1-L5, IVC filter FHx: brother-lymphoma, mother-migraines, hypothyroidism, hypoglycemia, father- CABG, brother-esophageal cancer Social: hx of alcohol abuse, sober for last 8 months and currently wearing alcohol-detecting device on L ankle; denies drug use or smoking hx - Review of Systems General: reports: fever/chills (chills, no fever), night sweats (last few weeks) Eyes: denies: eye pain, vision changes ENT: denies: nasal congestion, rhinorrhea Respiratory: reports: cough, shortness of breath (with coughing). denies: congestion Cardiovascular: denies: chest pain, palpitation, edema Gastrointestinal: denies: nausea, vomiting, diarrhea, abdominal pain Genitourinary: denies: dysuria, polyuria Skin: denies: jaundice, itching Musculoskeletal: denies: tenderness, swelling Neurological: reports: other (R foot drop) Psychological: reports: depression. denies: anxiety - Vital signs BP: [148/93] HR: [62] RR: [15] Tmax: [97.6F] Pox: [99]% on [RA] Wt: [54.43kg] - Physical Exam Constitutional: NAD, awake, alert and oriented HEENT: EOMI, MMM Neck: supple, FROM, no LAD Chest: no-tender to palpation, no lesions Heart: RRR, normal S1/S2 Lungs: CTAB, no respiratory distress Abdomen: soft, non-tender Musculoskeletal: normal structure, ROM grossly normal (aside from R foot drop) Neurological: normal sensation, other (R foot drop) Skin: no rash/lesions, good turgor Heme/Lymphatic: no unusual bruising or bleeding, no purpura Psychiatric: normal mood and affect, good judgment and insight FMR H&P: Results - Labs Result Diagrams: 11/18/19 12:11 11/18/19 12:11 Lab results: WBC 6.0 thou/uL (4.8-10.8) 11/18/19 12:11 Hgb 10.7 g/dL (12.0-16.0) L 11/18/19 12:11 Hct 33.6 % (36.0-47.0) L 11/18/19 12:11 MCV 73.4 fL (78.0-98.0) L 11/18/19 12:11 Plt Count 286 thou/uL (130-400) 11/18/19 12:11 Neutrophils % 49.0 % (42.0-75.0) 11/18/19 12:11 Sodium 137 mmol/L (136-145) 11/18/19 12:11 Potassium 2.9 mmol/L (3.5-5.1) L* 11/18/19 12:11 Chloride 98 mmol/L (98-107) 11/18/19 12:11 Carbon Dioxide 30 mmol/L (22-29) H 11/18/19 12:11 BUN 18 mg/dL (9.8-20.1) 11/18/19 12:11 Creatinine 0.97 mg/dL (0.6-1.1) 11/18/19 12:11 Glucose 76 mg/dL (70-105) 11/18/19 12:11 Calcium 9.2 mg/dL (7.8-10.44) 11/18/19 12:11 Total Bilirubin Less than 0.2 mg/dL (0.2-1.2) L 11/18/19 12:11 AST 11 U/L (5-34) 11/18/19 12:11 ALT 7 U/L (8-55) L 11/18/19 12:11 Alkaline Phosphatase 96 U/L (40-110) 11/18/19 12:11 Serum Total Protein 7.1 g/dL (6.0-8.3) 11/18/19 12:11 Albumin 3.8 g/dL (3.5-5.0) 11/18/19 12:11 - EKG Interpretation EKG: ST depression V4,V5,V6,I,II - Radiology Interpretation CT scan - head Status: report reviewed by me (negative for actue intracranial process) CT scan - chest Status: report reviewed by me (CTA chest: no evidence of PE, RLL opacity with central cavitation vs necrosis) FMR H&P: A/P - Problem List (1) Depression Current Visit: Yes Status: Chronic Code(s): F32.9 - MAJOR DEPRESSIVE DISORDER, SINGLE EPISODE, UNSPECIFIED (2) Hypothyroidism Current Visit: Yes Status: Chronic Code(s): E03.9 - HYPOTHYROIDISM, UNSPECIFIED (3) Asthma Current Visit: Yes Status: Chronic Code(s): J45.909 - UNSPECIFIED ASTHMA, UNCOMPLICATED (4) History of alcohol abuse Current Visit: Yes Status: Chronic Code(s): F10.11 - ALCOHOL ABUSE, IN REMISSION (5) Anemia Current Visit: No Status: Chronic Code(s): D64.9 - ANEMIA, UNSPECIFIED (6) Hx of suicide attempt Current Visit: No Status: Chronic Code(s): Z91.5 - PERSONAL HISTORY OF SELF- HARM (7) Dysautonomia Current Visit: No Status: Chronic Code(s): G90.9 - DISORDER OF THE AUTONOMIC NERVOUS SYSTEM, UNSPECIFIED (8) Hypertension Current Visit: No Status: Chronic Code(s): I10 - ESSENTIAL (PRIMARY) HYPERTENSION Qualifiers: Hypertension type: essential hypertension Qualified Code(s): I10 - Essential (primary) hypertension (9) Hypokalemia Current Visit: Yes Status: Acute Code(s): E87.6 - HYPOKALEMIA (10) Hemoptysis Current Visit: Yes Status: Acute Code(s): R04.2 - HEMOPTYSIS (11) Cavitary lesion of lung Current Visit: Yes Status: Acute Code(s): J98.4 - OTHER DISORDERS OF LUNG (12) Foot drop, right Current Visit: Yes Status: Chronic Code(s): M21.371 - FOOT DROP, RIGHT FOOT - Plan Patient is a 54F with PMHx of dysautonomia reflex sympathetic dystrophy, pseudoseizures, HTN, asthma, IVC filter placement, hypothyroidism admitted for hypokalemia. #Hypokalemia -potassium 2.9, given 40meq KCl in ED -will give another 40meq KCl later this afternoon and recheck BMP in am -will continue to monitor and replete as necessary #ST depression -ST depression V4,V5,V6,I,II -initial trop 0.026 -patient denies cp at this time, will continue to trend #Hemoptysis #Cavitary lesion in RLL -WBC 6.0 wnl, afebrile, satting 99% on RA -patient denies recent travel -hx of alcohol abuse -CTA chest: RLL opacity with central cavitation vs necrosis. This could represent an infectious or malignant process. -discussed with radiology; does not recommend biopsy at this time as lesion has cavitations and biopsy would like result with retrieval of cells -sputum collection and culture -quant gold for TB -if sputum and quant gold negative, will consider follow up imaging outpatient to assess a better time for biopsy #Dysautonomia reflex sympathetic dystrophy #HTN -blood pressure labile -will continue home medications at this time #Hx of PE -patient had IVC filter placed within the last month -patient has a hx of recurrent falls -will not add anticoagulation therapy at this time #Asthma -patient satting 99% on RA -respiratory exam CTAB -will continue to monitor #Depression -continue home meds #Hx of alcohol abuse -patient wearing alcohol monitor on L ankle -has been sober for last 8 months #Anemia -Hgb/Hct 10.7/33.6, chronic #Foot drop since March 2019 #Hx of recurrent falls -fall precautions GI ppx: home pantoprazole DVT ppx: IVC filter Dispo: tele obs for cardiac monitoring; continue to replete electrolytes and trend troponins; f/u sputum culture and quant gold Code: FULL PCP: [facility] FMR H&P: Upper Level - Pertinent history 54 yo F here from clinic with complaint of coughing up blood for the past 3 days. She was seen in clinic for this complaint who sent her to the ER for PE rule out given her history of PE. CTA in the ER was negative for PE, however did note an evolving lesion in the RLL that appears to be necrosing vs cavitating as compared to CT on 10/28. Also of note was a K of 2.9 with new T wave inversion. She was given 40 mEq orally in the ER. She complains of associated night sweats. She denies fever, chills, SOB or CP PMHx Hx of PE Dysautonomia MDD BPD2 Foot drop HTN Hypothyroid Surgical Hx IVC filter 11/10 Social Hx of etoh and benzo abuse sober 8 mo Denies smoking - Pertinent findings See internet sales manager note for full ROS, PE, vitals, and labs ROS General denies fever or chills. Complains of night sweats CV Denies CP, palpitation, or peripheral edema Resp Complains of table spoon amounts of blood with cough. Denies SOB GI denies n/v/d/c or abdominal pain denies increased frequency or dysuria Neuro denies numbness or weakness. Complains of UE shaking at times PE General A&O x4, NAD HEENT NCAT CV RRR, no murmur Resp CTA, no respiratory distress Abd non tender, no distension, normal BS Extremities no edema, equal pedal pulses Neuro no focal deficits, CN II-XII intact - Plan Date/Time: 11/18/19 1443 I, Dustin Avery DO, have evaluated this patient and agree with findings/plan as outlined by internet sales manager resident. Pertinent changes/additions are listed here. 1.Hypokalemia -Replace PO -Monitor on tele -Check BMP in am 2.Hemoptysis -Appears to be related to the lesion on CT. Discussed biopsy with radiology who feels that it is not amenable to biopsy until it stabilizes. -Currently hemodynamically stable, no massive hemoptysis -Plan to consult Pulm, will hold off on abx at this time as she has no other symptoms of infection and labs are WNL. See internet sales manager note for management of chronic conditions. Plan to restart all home meds. PPx SCD, pt is poor anticoagulation candidate Diet Regular Code Full Addendum - Attending - Attending Attestation Date/Time: 11/18/19 720 I personally evaluated the patient and discussed the management with Dr. Aguiar I agree with the History, Examination, Assessment and Plan documented above with any addition or exceptions noted below - 54F with PMHX of dysautonomia reflex sympathetic dystrophy, pseudoseizures, HTN, asthma, IVC filter placement secondary to DVT, hypothyroidism, depression, foot drop since suicide attempt in March 2019, anemia, hx of alcohol abuse, that presents with hemoptysis. States that she has noted the hemoptysis for the last 3-4 days. She states that it has been bright red blood. About 1 teaspoon at a time; 3-4 times per day. Denies any fever/chills/chest pain. Mild SOB. PMH/PSH/Meds/SH reviewed and agree with resident's documentation. Afebrile VSS. Exam repeated by me and agree with resident's findings. CT chest with RLL opacity with central cavitation vs necrosis. K=2.9 A/P: 1) Hemoptysis - CT with round opacity in RLL- onfection vs malignancy- will consult pulmonary for input. 2) Hypokalemia- will replace potassium, 3) H/o DVT- s/p IVC placement, 4) Dysautonomia- continue home meds
[2019-11-18 15:13] LABS: Troponin I 0.025 ng/mL (< 0.028)
[2019-11-18] MEDS ORDERED: Famotidine 20 MG TAB PO PRN (16:35)
[2019-11-18] MEDS ORDERED: Ondansetron ODT 4 MG TAB PO PRN (16:35)
[2019-11-18] MEDS ORDERED: hydrALAZINE 25 MG TAB PO PRN ×2 (16:35→17:08)
[2019-11-18] MEDS ORDERED: Acetaminophen 325 MG TAB PO PRN (16:35)
[2019-11-18 16:37] VITALS: BMI 20.5
[2019-11-18] MEDS ORDERED: Gabapentin 300 MG CAP PO SCH ×2 (17:00→21:00)
[2019-11-18] MEDS ORDERED: Potassium Chloride 20 MEQ TAB PO SCH (18:00)
[2019-11-18 18:42] LABS: Troponin I Less than 0.010 ng/mL (< 0.028)
[2019-11-18] MEDS ORDERED: Metoprolol Tartrate 100 MG TAB PO SCH (21:00)
[2019-11-18] MEDS ORDERED: Mexiletine HCl 150 MG CAP PO SCH ×2 (21:00)
[2019-11-18] MEDS ORDERED: Topiramate 100 MG TAB PO SCH (21:00)
[2019-11-18] MEDS: Gabapentin 300 MG CAP PO SCH (21:08)
[2019-11-18] MEDS: Metoprolol Tartrate 100 MG TAB PO SCH (21:09)
[2019-11-18] MEDS ORDERED: traZODone HCl 50 MG TAB PO SCH (21:30)
[2019-11-18] MEDS ORDERED: Melatonin 3 MG TAB PO SCH (21:30)
[2019-11-18] MEDS: DULoxetine 30 MG CAP PO SCH (21:32)
[2019-11-18] MEDS: carBAMazepine 100 mg Chewable Tablet PO SCH (21:34)
[2019-11-19] MEDS ORDERED: SUMAtriptan Succinate 50 MG TAB PO SCH ×2 (03:00→11:30)
--- NOTE | 2019-11-19 05:22 | PDOC.FM ---
- Subjective Subjective: Patient is doing well this morning. Denies chest pain or sob. Denies any other episodes of hematemesis overnight. Reports of an occasional cough. - Objective MAR Reviewed: Yes Vital Signs & Weight: Vital Signs (12 hours) Temp Pulse Resp BP Pulse Ox 11/19/19 03:12 98.1 F 76 16 108/56 L 95 11/18/19 23:15 98.2 F 75 14 91/53 L 97 11/18/19 22:35 97 11/18/19 19:40 97.9 F 67 14 126/89 98 Weight Weight 57.878 kg I&O: 11/17/19 11/18/19 11/19/19 06:59 06:59 06:59 Intake Total 890 Output Total 300 Balance 590 Result Diagrams: 11/19/19 05:21 11/19/19 05:21 Phys Exam - Physical Examination Constitutional: NAD HEENT: moist MMs, sclera anicteric Neck: supple, full ROM Respiratory: no wheezing, clear to auscultation bilateral Cardiovascular: RRR, no significant murmur Gastrointestinal: soft, non-tender Musculoskeletal: no edema, pulses present Neurological: moves all 4 limbs foot drop R foot Psychiatric: normal affect, A&O x 3 Skin: no rash, normal turgor Dx/Plan (1) Depression Code(s): F32.9 - MAJOR DEPRESSIVE DISORDER, SINGLE EPISODE, UNSPECIFIED Status : Chronic (2) Hypothyroidism Code(s): E03.9 - HYPOTHYROIDISM, UNSPECIFIED Status: Chronic (3) Asthma Code(s): J45.909 - UNSPECIFIED ASTHMA, UNCOMPLICATED Status: Chronic (4) History of alcohol abuse Code(s): F10.11 - ALCOHOL ABUSE, IN REMISSION Status: Chronic (5) Anemia Code(s): D64.9 - ANEMIA, UNSPECIFIED Status: Chronic (6) Hx of suicide attempt Code(s): Z91.5 - PERSONAL HISTORY OF SELF-HARM Status: Chronic (7) Dysautonomia Code(s): G90.9 - DISORDER OF THE AUTONOMIC NERVOUS SYSTEM, UNSPECIFIED Status : Chronic (8) Hypertension Code(s): I10 - ESSENTIAL (PRIMARY) HYPERTENSION Status: Chronic Qualifiers: Hypertension type: essential hypertension Qualified Code(s): I10 - Essential (primary) hypertension (9) Hypokalemia Code(s): E87.6 - HYPOKALEMIA Status: Acute (10) Hemoptysis Code(s): R04.2 - HEMOPTYSIS Status: Acute (11) Cavitary lesion of lung Code(s): J98.4 - OTHER DISORDERS OF LUNG Status: Acute (12) Foot drop, right Code(s): M21.371 - FOOT DROP, RIGHT FOOT Status: Chronic - Plan Plan: Patient is a 54F with PMHx of dysautonomia reflex sympathetic dystrophy, pseudoseizures, HTN, asthma, IVC filter placement, hypothyroidism admitted for hypokalemia. #Hypokalemia, resolved -potassium 2.9 on admission, given 40meq KCl in ED -potassium 4.5 am 11/19 #ST depression -ST depression V4,V5,V6,I,II -trop 0.026> 0.025> <0.01 -patient denies cp at this time #Hemoptysis #Cavitary lesion in RLL -WBC 6.0 wnl, afebrile, satting 99% on RA -patient denies recent travel -hx of alcohol abuse -CTA chest: RLL opacity with central cavitation vs necrosis. This could represent an infectious or malignant process. -discussed with radiology; does not recommend biopsy at this time as lesion has cavitations and biopsy would like result with retrieval of cells -procal 0.04 -sputum collection and culture, collected with results pending -quant gold for TB, collected with results pending -if sputum and quant gold negative, will consider follow up imaging outpatient to assess a better time for biopsy #Dysautonomia reflex sympathetic dystrophy #HTN -blood pressure labile -will continue home medications at this time #Hx of PE -patient had IVC filter placed within the last month -patient has a hx of recurrent falls -will not add anticoagulation therapy at this time #Asthma -patient satting 99% on RA -respiratory exam CTAB -will continue to monitor #Depression -continue home meds #Hx of alcohol abuse -patient wearing alcohol monitor on L ankle -has been sober for last 8 months #Anemia -Hgb/Hct 10.7/33.6, chronic #Foot drop since March 2019 #Hx of recurrent falls -fall precautions GI ppx: home pantoprazole DVT ppx: IVC filter Dispo: tele obs for cardiac monitoring; potassium stable this morning; f/u sputum culture and quant gold Code: FULL PCP: [facility]
[2019-11-19 05:40] LABS: #Eosinphils 0.1 thou/uL (0.0-0.7); #Lymphocytes 1.5 thou/uL (1.20-3.40); #Monocytes 0.4 thou/uL (0.11-0.59); #Neutrophils 2.1 thou/uL (1.40-6.50); %Basophils 0.9 % (0.0-1.0); %Eosinophils 1.6 % (0.0-10.0); %Neutrophils 51.5 % (42.0-75.0); Hemoglobin 10.2 g/dL (12.0-16.0); Mean Corpuscular HGB CONC 30.5 g/dL (32.0-36.0); Mean Corpuscular Hemoglobin 22.4 pg (27.0-31.0); Mean Corpuscular Volume 73.6 fL (78.0-98.0); Mean Platelet Volume 6.1 fL (7.4-10.4); Platelet Count 188 thou/uL (130-400); RBC Distribution Width 29.4 % (11.5-14.5); Red Blood Cell (RBC) Count 4.56 mill/uL (4.20-5.40); White Blood Cell (WBC) Count 4.2 thou/uL (4.8-10.8)
[2019-11-19 05:55] LABS: Band 6 % (5-11); Eosinophils 7 % (0-10); Lymphocytes 21 % (21-51); MDiff Complete? YES; Monocytes 7 % (0-10); Neutrophil 59 % (42-75); Platelet Morphology Comment Appears Adequate; RBC Morphology Normal
[2019-11-19] MEDS ORDERED: Levothyroxine 150 MCG TAB PO SCH ×2 (06:00)
[2019-11-19] MEDS ORDERED: Levothyroxine Sodium 125 MCG TAB PO SCH (06:00)
[2019-11-19 06:02] LABS: Anion Gap 12 mmol/L (10-20); BUN (Urea Nitrogen) 13 mg/dL (9.8-20.1); Calc. Creatinine Clearance 68 mL/min (70-130); Calcium 8.9 mg/dL (7.8-10.44); Carbon Dioxide 28 mmol/L (22-29); Chloride 106 mmol/L (98-107); Estimated GFR-MDRD 68; Glucose 85 mg/dL (70-105); Potassium 4.5 mmol/L (3.5-5.1); Sodium 141 mmol/L (136-145)
[2019-11-19] MEDS ORDERED: Midodrine HCl 5 MG TAB PO SCH ×5 (09:00→17:00)
[2019-11-19] MEDS ORDERED: DULoxetine 30 MG CAP PO SCH (09:00)
[2019-11-19] MEDS ORDERED: Hydrochlorothiazide 25 MG TAB PO SCH (09:00)
[2019-11-19] MEDS ORDERED: Mexiletine HCl 150 MG CAP PO SCH (09:00)
[2019-11-19] MEDS: carBAMazepine 100 mg Chewable Tablet PO SCH (09:33)
[2019-11-19] MEDS: DULoxetine 30 MG CAP PO SCH (09:33)
[2019-11-19] MEDS: Metoprolol Tartrate 100 MG TAB PO SCH (09:34)
[2019-11-19] MEDS: Gabapentin 300 MG CAP PO SCH (09:34)
[2019-11-19] MEDS ORDERED: Acetaminophen 500 MG TAB PO SCH (11:30)
[2019-11-19 12:11] VITALS: BP 161/94; TEMP 98.1
[2019-11-19] MEDS ORDERED: traZODone HCl 50 MG TAB PO SCH (21:00)
[2019-11-19] MEDS ORDERED: Melatonin 3 MG TAB PO SCH (21:00)
--- NOTE | 2019-11-21 07:27 | RAD ---
EXAM: Single view of the chest HISTORY: Coughing up blood for 3 days COMPARISON: None FINDINGS: Single view of the chest shows a normal sized cardiomediastinal silhouette. There is no elizabeth dence of consolidation, mass, or pleural effusion. The bones are unremarkable. IMPRESSION: No evidence of acute cardiopulmonary disease
--- NOTE | 2019-11-21 09:48 | DIS ---
DATE OF ADMISSION: 11/18/2019 DATE OF DISCHARGE: 11/19/2019 ADMITTING ATTENDING: Saige Salazar MD DISCHARGE RESIDENT: Zina Aguiar MD DISCHARGE ATTENDING: Ridge Kang MD CONSULTS: None. PROCEDURES: None. IMAGING: Brain CT, no acute intracranial abnormality. Chest-thorax CTA, no evidence of pulmonary thromboembolism. Right lower lobe opacity with central cavitation versus necrosis. This could represent an infectious or malignant process. PRIMARY DIAGNOSES: Hypokalemia, ST depression, hemoptysis, and cavitary lesion in right lower lobe. SECONDARY DIAGNOSES: Dysautonomia, reflex sympathetic dystrophy, hypertension, history of pulmonary embolism, asthma, depression, history of alcohol abuse, anemia, footdrop since March 2019, and history of recurrent falls. DISCHARGE MEDICATIONS: 1. 200 mg Tegretol p.o. b.i.d. 2. 30 mg Cymbalta p.o. b.i.d. 3. 1200 mg gabapentin p.o. t.i.d. 4. 12.5 mg hydralazine p.o. p.r.n. 5. 12.5 mg hydrochlorothiazide p.o. daily. 6. 125 mcg levothyroxine p.o. daily. 7. 3 mg melatonin p.o. at bedtime. 8. 100 mg metoprolol tartrate p.o. b.i.d. 9. 200 mg mexiletine HCL p.o. b.i.d. 10. 15 mg of midodrine p.o. q.a.m. 11. 10 mg midodrine p.o. q.noon. 12. 10 mg midodrine p.o. every day at 1700 hours. 13. 40 mg pantoprazole p.o. daily. 14. 300 mg topiramate p.o. at bedtime. 15. 100 mg trazodone p.o. at bedtime. DISCONTINUED MEDICATIONS: 1. Tylenol p.r.n. 2. Famotidine p.r.n. 3. Sumatriptan. 4. Zofran p.r.n. HISTORY OF PRESENT ILLNESS/HOSPITAL COURSE: The patient is a 54-year-old female with past medical history of dysautonomia, reflex sympathetic dystrophy, pseudoseizures, hypertension, asthma, IVC filter placement recently, hypothyroidism, depression, foot drop since suicide attempt in March 2019, anemia, history of alcohol abuse, who presented to the ER with hemoptysis for the last 3 days. She reported about a teaspoon of bloody sputum was produced 3 to 4 times per day for the 3 days prior to admission. She stated that this is new in onset. The patient had a CT scan earlier in October that showed a right lower lobe opacity and recommended that the patient followup CT scan in 2 to [address] scan on admission , it did show that the right lower lobe has since had a new area of cavitation versus necrosis, which could represent either an infectious or malignant process. The imaging was discussed with Radiology, who stated that it would be not beneficial to the patient to biopsy the lesion at this time, as the cavitary nature of the lesion would likely leave the biopsy with cells that would not provide further information. Radiology recommended followup imaging to determine when the cavitation had stopped, so the biopsy could be done. The patient did have testing for TB, though she did decline any recent travel or any incarceration. She also had a sputum collection that was sent to microbiology for culture. Those results are not back at this time. When she was admitted, her potassium was 2.9. She was given 40 mEq of potassium chloride in the ED and another 40 mEq later that afternoon, and her potassium rebounded in the morning of discharge to 4.5. The patient reported that most of her muscle twitching had stopped on the day of discharge, and it was likely due to repletion of electrolytes. The patient also did present with new ST depression in V4, V5, V6, I, II on the EKG and her troponins were trended, all of which remained negative. The patient denied any chest pain throughout the entire hospitalization and was monitored on telemetry for any cardiac changes. None occurred during her hospitalization. It was discussed with the patient that it is recommended that she follow up outpatient for discussion about referral to a section chief for her lesion as well as repeat imaging for possible biopsy. The patient was agreeable with the plan of care, and the patient was evaluated on the day of discharge and found to be in stable condition. DISPOSITION: Stable. DISCHARGE INSTRUCTIONS: 1. Location: Home. 2. Diet: Heart healthy. 3. Activity: As tolerated. 4. Followup: Follow up with PCP Dr. Avery at [facility] within 7 days. Job ID: [id number] [facility]
[2019-11-24 22:07] LABS: QuantiFERON-TB Gold Plus Negative (Negative)
== END 2019-11-19 13:55 | disposition home or self-care (01) ==
LOC: ERS 11:03 → 2SW 16:21
PROVIDERS: ADMIT Family Medicine; ATTEND Family Medicine
DX: E87.6 Hypokalemia (principal); R04.2 Hemoptysis; G90.9 Disorder of the autonomic nervous system, unspecified; G90.50 Complex regional pain syndrome I, unspecified; I10 Essential (primary) hypertension; J45.909 Unspecified asthma, uncomplicated; E03.9 Hypothyroidism, unspecified; F32.9 Major depressive disorder, single episode, unspecified; M21.371 Foot drop, right foot; F10.11 Alcohol abuse, in remission; D64.9 Anemia, unspecified; J98.4 Other disorders of lung; F19.11 Other psychoactive substance abuse, in remission; R56.9 Unspecified convulsions; Z86.711 Personal history of pulmonary embolism; Z91.5 Personal history of self-harm; Z79.899 Other long term (current) drug therapy; Z88.1 Allergy status to other antibiotic agents; Z88.5 Allergy status to narcotic agent; Z88.7 Allergy status to serum and vaccine; Z95.828 Presence of other vascular implants and grafts; Z98.1 Arthrodesis status; Z98.84 Bariatric surgery status
CPT/HCPCS: 36415; 70450; 71045; 71275; 80048; 80053; 83735; 84145; 84484; 85025; 86480; 89220; 93005; 96361; 96374; G0378; J0360

== ENCOUNTER 2019-11-28 21:25 | Emergency (ER) | payer OTHER ==
[2019-11-28 21:48] LABS: Hemoglobin 11.1 g/dL (12.0-16.0); Mean Corpuscular HGB CONC 30.7 g/dL (32.0-36.0); Mean Corpuscular Hemoglobin 23.2 pg (27.0-31.0); Mean Corpuscular Volume 75.5 fL (78.0-98.0); Mean Platelet Volume 6.7 fL (7.4-10.4); Platelet Count 165 thou/uL (130-400); RBC Distribution Width 29.8 % (11.5-14.5); Red Blood Cell (RBC) Count 4.78 mill/uL (4.20-5.40); White Blood Cell (WBC) Count 5.2 thou/uL (4.8-10.8)
[2019-11-28 22:01] LABS: #Eosinphils 0.1 thou/uL (0.0-0.7); #Lymphocytes 1.6 thou/uL (1.20-3.40); #Monocytes 0.4 thou/uL (0.11-0.59); %Basophils 0.9 % (0.0-1.0); %Eosinophils 1.9 % (0.0-10.0); %Lymphocytes 31.2 % (21.0-51.0); %Monocytes 7.7 % (0.0-10.0); %Neutrophils 58.3 % (42.0-75.0); Anisocytosis MODERATE=16-30 cells (100X) (0-5/hpf); Hypochromia SLIGHT = 6-15 cells (100X) (0-5/hpf); MDiff Complete? YES; Microcytosis SLIGHT = 6-15 cells (100X) (0-5/hpf)
[2019-11-28] MEDS ORDERED: Ketorolac Tromethamine 30 MG/ML VIAL ONE (22:24)
[2019-11-28] MEDS ORDERED: Acetaminophen 500 MG TAB ONE (22:24)
[2019-11-28] MEDS ORDERED: diphenhydrAMINE 50 MG/ML VIAL ONE (22:24)
[2019-11-28] MEDS ORDERED: Metoclopramide HCl 10 MG/2 ML VIAL ONE (22:24)
--- NOTE | 2019-11-28 22:39 | RAD ---
EXAM: Two views chest PROVIDED CLINICAL HISTORY: Cough COMPARISON: 11/18/2019 FINDINGS: Cardiac silhouette and pulmonary vasculature are within normal limits. The lungs are clear. The osse ous structures have a normal appearance. Surgical clips overlie the right upper quadrant, and there is partial visualization of an IVC filter again the medial aspect right upper abdomen. IMPRESSION: No acute cardiopulmonary process.
== END 2019-11-28 23:45 | disposition home or self-care (01) ==
LOC: ERS 21:25
DX: R04.2 Hemoptysis (principal); G43.909 Migraine, unspecified, not intractable, without status migrainosus; I10 Essential (primary) hypertension; J45.909 Unspecified asthma, uncomplicated; E03.9 Hypothyroidism, unspecified; F32.9 Major depressive disorder, single episode, unspecified; Z86.711 Personal history of pulmonary embolism; Z79.899 Other long term (current) drug therapy
CPT/HCPCS: 36415; 71046; 85025; 96361; 96374; 96375; 96376; J1200; J1885; J2765

== ENCOUNTER 2020-02-01 08:15 | Outpatient (CLI) | payer OTHER ==
--- NOTE | 2020-02-01 09:02 | ULT ---
VENOUS DOPPLER ULTRASOUND OF THE RIGHT LOWER EXTREMITY: Date: 02/01/2020 HISTORY: Deep venous thrombosis in right lower extremity. Patient on Eliquis. TECHNIQUE: Forbes scale ultrasound with color flow and spectral Doppler imaging of the deep venous system of the r ight lower extremity performed. COMPARISON: 10/27/2019. FINDINGS: There is absence of compression due to a partially occlusive residual thrombus in a short segment of the right popliteal vein, which is improved since the previous exam. The previously noted thrombus in the right posterior tibial vein has resolved. The remainder of the deep venous system of the right l ower extremity is otherwise patent, without evidence of thrombosis. IMPRESSION: Interval improvement since 10/27/2019 with residual partially occlusive thrombus in the right poplite al vein. POS: [facility]
== END 2020-02-01 08:16 | disposition home or self-care (01) ==
LOC: BICULT 08:15
PROVIDERS: ATTEND Student in an Organized Health Care Education/Training Program
DX: I82.531 Chronic embolism and thrombosis of right popliteal vein (principal)

== ENCOUNTER 2020-02-04 12:19 | Inpatient (IN) | payer OTHER ==
[2020-02-04 13:11] LABS: #Eosinphils 0.1 thou/uL (0.0-0.7); #Monocytes 0.5 thou/uL (0.11-0.59); #Neutrophils 5.5 thou/uL (1.40-6.50); %Basophils 0.4 % (0.0-1.0); %Eosinophils 1.5 % (0.0-10.0); %Lymphocytes 13.7 % (21.0-51.0); %Monocytes 6.3 % (0.0-10.0); %Neutrophils 78.1 % (42.0-75.0); Hemoglobin 10.8 g/dL (12.0-16.0); Mean Corpuscular HGB CONC 31.5 g/dL (32.0-36.0); Mean Corpuscular Hemoglobin 27.2 pg (27.0-31.0); Mean Corpuscular Volume 86.4 fL (78.0-98.0); Platelet Count 206 thou/uL (130-400); RBC Distribution Width 19.8 % (11.5-14.5); Red Blood Cell (RBC) Count 3.98 mill/uL (4.20-5.40); White Blood Cell (WBC) Count 7.1 thou/uL (4.8-10.8)
[2020-02-04 13:19] LABS: INR-International Normal Ratio 1.1; PTT 30.8 SEC (22.9-36.1); Prothrombin Time 13.8 SEC (12.0-14.7)
[2020-02-04 13:33] LABS: ALT (SGPT) 8 U/L (8-55); AST (SGOT) 15 U/L (5-34); Albumin 3.4 g/dL (3.5-5.0); Alkaline Phosphatase 68 U/L (40-110); Anion Gap 17 mmol/L (10-20); BUN (Urea Nitrogen) 15 mg/dL (9.8-20.1); Bilirubin, Total Less than 0.2 mg/dL (0.2-1.2); Calc. Creatinine Clearance 0 mL/min (70-130); Calcium 8.9 mg/dL (7.8-10.44); Carbon Dioxide 24 mmol/L (22-29); Chloride 105 mmol/L (98-107); Estimated GFR-MDRD 76; Globulin 3.3 g/dL (2.4-3.5); Glucose 116 mg/dL (70-105); Potassium 3.7 mmol/L (3.5-5.1); Protein, Total 6.7 g/dL (6.0-8.3); Sodium 142 mmol/L (136-145)
--- NOTE | 2020-02-04 13:46 | CT ---
CT ARTERIOGRAM CHEST WITH IV CONTRAST AND 3D IMAGING: HISTORY: Hemoptysis. No fever. COMPARISON: 11/18/2019. FINDINGS: There is good contrast opacification of the pulmonary arteries and thoracic aorta with normal branchi ng of the great vessels at the aortic arch. In the area of wedge-shaped peripheral lesion at the posterior medial aspect of the superior segment right lower lobe on the prior study, minimal residual scarring remains. In the setting of multiple prior pulmonary emboli, that likely represented a resolving area of infarct. On today's exam, there are very widespread, fairly diffuse and symmetric scattered areas of nodularit y involving each lobe. The largest grouping is at the left posterolateral lung base. No nodules greater than 6 mm. Superimposed is a subtle diffuse, bilateral and symmetric fine interstitial nodula r pattern. No lobar consolidation. No pleural fluid or pneumothorax. No enlarged lymph nodes within the mediastinum. Within the partially visualized upper abdomen, postoperative changes of the stomach are apparent. Gal lbladder surgically absent. IMPRESSION: 1. No CT evidence of pulmonary embolus. 2. Diffuse and somewhat symmetric abnormalities throughout each lung including a fine micronodular i nterstitial prominence and scattered tiny ill-defined nodules. A nonspecific appearance which can be seen with diffuse pulmonary/autoimmune processes and nonspecific inflammatory processes. These are favored over metastatic disease. Findings were called to Dr. Fontanez in the emergency department at 1333 hours. Code CR. Transcribed Date/Time: 02/04/2020 3:10 PM
[2020-02-04] MEDS ORDERED: Iopamidol-370 76% 500 ML 1 ML ONE (13:58)
--- NOTE | 2020-02-04 16:04 | PDOC.FPRHP ---
- History of Present Illness Chief Complaint: hematemesis History of Present Illness: 55yo F with pmh of DVT (on eliquis) presents for 2 day hx of hematemesis and cough. Subjective fevers, no chills, no temps taken at home. She reports contact with ppl that were coughing but no positive cases of flu or covid. she has not travelled outside of [place]. Associated nausea, no vomiting. no SOB. She was hospitalized in October 2019 for hematemesis which was thought to be 2/ 2 an area of RLL necrotic lung (possible from scarring and healing PE). She had plans for f/u outpt with pulmonology for possible biopsy outpatient. She was never able to follow up with them. ED Course: 1L NS, Health department called by Dr. Fontanez recommends inpt isolation until labs result - Allergies/Adverse Reactions Allergies Allergy/AdvReac Type Severity Reaction Status Date / Time codeine Allergy Hives Verified 11/18/19 16:30 gatifloxacin [From Tequin] Allergy Verified 11/18/19 16:30 Influenza Virus Vaccines Allergy Verified 11/18/19 16:30 levofloxacin [From Levaquin] Allergy Verified 11/18/19 16:30 pneumococcal vaccine Allergy Anaphylaxis Verified 11/18/19 16:30 - Home Medications Medication Instructions Recorded Confirmed Type DULoxetine [Cymbalta] 30 mg PO BID 10/13/19 11/18/19 History Mexiletine HCl 200 mg PO BID 10/13/19 11/18/19 History Midodrine HCl 10 mg PO 1200 10/13/19 11/18/19 History Midodrine HCl 10 mg PO 1700 10/13/19 11/18/19 History Midodrine HCl 15 mg PO QAM 10/13/19 11/18/19 History Pantoprazole [Protonix] 40 mg PO QAM 10/13/19 11/18/19 History Topiramate 300 mg PO HS 10/13/19 11/18/19 History carBAMazepine [Tegretol] 200 mg PO BID 10/13/19 11/18/19 History Metoprolol Tartrate [Lopressor] 100 mg PO BID tab 11/03/19 11/18/19 Rx Gabapentin [Neurontin] 1,200 mg PO TID 11/18/19 11/18/19 History Levothyroxine Sodium [Synthroid] 125 mcg PO 0600 11/18/19 11/18/19 History Melatonin 3 mg PO HS 11/18/19 11/18/19 History traZODone HCl [Trazodone HCl] 100 mg PO HS 11/18/19 11/18/19 History Hydrochlorothiazide 12.5 mg PO DAILY tab 11/19/19 Rx Levothyroxine Sodium [Synthroid] 125 mcg PO 0600 tab 11/19/19 Rx Mexiletine HCl 150 mg PO BID cap 11/19/19 Rx hydrALAZINE [Apresoline] 12.5 mg PO DAILYPRN PRN tab 11/19/19 Rx - History PMHx: dysautonomia reflex sympathetic dystrophy, pseudoseizures, HTN, asthma, IVC filter placement, hypothyroidism, depression, foot drop since suicide attempt in March 2019, anemia, hx of alcohol abuse PSHx: hysterectomy, gastric bypass, appendectomy, cholecystectomy, x2 , spinal fusion S1-L5, IVC filter FHx: brother-lymphoma, mother-migraines, hypothyroidism, hypoglycemia, father- CABG, brother-esophageal cancer Social: hx of alcohol abuse, sober for last 11 months; denies drug use or smoking hx - Review of Systems General: reports: fever/chills. denies: fatigue Eyes: denies: eye pain, vision changes ENT: reports: nasal congestion, rhinorrhea Respiratory: reports: cough. denies: shortness of breath Cardiovascular: denies: palpitation, edema Gastrointestinal: reports: nausea. denies: vomiting Genitourinary: denies: incontinence, dysuria Skin: denies: rashes, lesions Musculoskeletal: denies: stiffness, swelling Neurological: denies: syncope, seizure Psychological: denies: anxiety, depression - Vital signs BP: 140/82, Pulse: 79, Resp: 15, Temp: 98.9 (Oral), O2 sat: 94 on (Room Air), Time: 02/04/2020 15:47. weight 55kg - Physical Exam Constitutional: NAD, awake, alert and oriented HEENT: normocephalic and atraumatic, EOMI, grossly normal vision, grossly normal hearing Neck: supple, FROM Chest: no-tender to palpation Heart: RRR, normal S1/S2 Lungs: no respiratory distress -Lungs: expiratory crackles and rhonchi bilaterally Abdomen: soft, non-tender Musculoskeletal: normal tone, ROM grossly normal Neurological: normal sensation, DTRs 2+ Skin: no rash/lesions, good turgor Heme/Lymphatic: no purpura, no petechia Psychiatric: normal mood and affect, good judgment and insight FMR H&P: Results - Labs Result Diagrams: 02/04/20 12:55 02/04/20 12:55 Lab results: WBC 7.1 thou/uL (4.8-10.8) 02/04/20 12:55 Hgb 10.8 g/dL (12.0-16.0) L 02/04/20 12:55 Hct 34.3 % (36.0-47.0) L 02/04/20 12:55 MCV 86.4 fL (78.0-98.0) 02/04/20 12:55 Plt Count 206 thou/uL (130-400) 02/04/20 12:55 Neutrophils % 78.1 % (42.0-75.0) H 02/04/20 12:55 Sodium 142 mmol/L (136-145) 02/04/20 12:55 Potassium 3.7 mmol/L (3.5-5.1) 02/04/20 12:55 Chloride 105 mmol/L (98-107) 02/04/20 12:55 Carbon Dioxide 24 mmol/L (22-29) 02/04/20 12:55 BUN 15 mg/dL (9.8-20.1) 02/04/20 12:55 Creatinine 0.79 mg/dL (0.6-1.1) 02/04/20 12:55 Glucose 116 mg/dL (70-105) H 02/04/20 12:55 Calcium 8.9 mg/dL (7.8-10.44) 02/04/20 12:55 Total Bilirubin Less than 0.2 mg/dL (0.2-1.2) L 02/04/20 12:55 AST 15 U/L (5-34) 02/04/20 12:55 ALT 8 U/L (8-55) 02/04/20 12:55 Alkaline Phosphatase 68 U/L (40-110) 02/04/20 12:55 Serum Total Protein 6.7 g/dL (6.0-8.3) 02/04/20 12:55 Albumin 3.4 g/dL (3.5-5.0) L 02/04/20 12:55 FMR H&P: A/P - Problem List (1) Hemoptysis Current Visit: No Status: Acute Code(s): R04.2 - HEMOPTYSIS (2) Cavitary lesion of lung Current Visit: No Status: Acute Code(s): J98.4 - OTHER DISORDERS OF LUNG (3) Deep vein thrombosis (DVT) of popliteal vein of right lower extremity Current Visit: No Status: Acute Code(s): I82.431 - ACUTE EMBOLISM AND THROMBOSIS OF RIGHT POPLITEAL VEIN Qualifiers: Chronicity: acute Qualified Code(s): I82.431 - Acute embolism and thrombosis of right popliteal vein (4) Anemia Current Visit: No Status: Chronic Code(s): D64.9 - ANEMIA, UNSPECIFIED (5) Asthma Current Visit: No Status: Chronic Code(s): J45.909 - UNSPECIFIED ASTHMA, UNCOMPLICATED (6) Depression Current Visit: No Status: Chronic Code(s): F32.9 - MAJOR DEPRESSIVE DISORDER , SINGLE EPISODE, UNSPECIFIED (7) Dysautonomia Current Visit: No Status: Chronic Code(s): G90.9 - DISORDER OF THE AUTONOMIC NERVOUS SYSTEM, UNSPECIFIED (8) Foot drop, right Current Visit: No Status: Chronic Code(s): M21.371 - FOOT DROP, RIGHT FOOT (9) History of alcohol abuse Current Visit: No Status: Chronic Code(s): F10.11 - ALCOHOL ABUSE, IN REMISSION (10) Hx of suicide attempt Current Visit: No Status: Chronic Code(s): Z91.5 - PERSONAL HISTORY OF SELF- HARM (11) Hypertension Current Visit: No Status: Chronic Code(s): I10 - ESSENTIAL (PRIMARY) HYPERTENSION Qualifiers: Hypertension type: essential hypertension Qualified Code(s): I10 - Essential (primary) hypertension - Plan Hemoptysis 2/2 atypical pneumonia, r/o COVID-19 A- CT scan suggest micronodular densities that are characteristic of COVID-19. Without being febrile it is more suspicious that this cause is 2/2 atypical pneumonia vs. scarring on RLL necrotic region. Public Health department ID docs contacted (appreciate recs) and viral panel (including COVID-19) sent to lab to be sent to health department for testing. Cardiopulmonary status is stable. She is on RA. P- Admit to medicine, droplet precautions -Azithromycin -monitor h/h -f/u viral panel -on curbside recommendation from PULM will reduce dose of eliquis to 2.5mg BID HTN A- blood pressure labile 2/2 dysautonomia P- will continue home medications at this time Hx of PE with current DVT A- patient had IVC filter placed in 2018 P- continue eliquis at 1/2 dose Asthma A- patient satting 99% on RA. respiratory exam CTAB P- will continue to monitor Depression -continue home meds Hx of alcohol abuse - has been sober for last 8 months Anemia -chronic, pt at baseline Foot drop since March 2019 -MD aware Dysautonomia reflex sympathetic dystrophy -MD aware DVT ppx: IVC filter, eliquis Code: FULL PCP: Carly
[2020-02-04] MEDS ORDERED: hydrALAZINE 20 MG/ML VIAL ONE (18:10)
[2020-02-04] MEDS ORDERED: Ondansetron PF 4 MG/2 ML Vial ONE (18:10)
[2020-02-04] MEDS ORDERED: Calcium Carbonate 500 MG ChewTAB PO PRN (19:22)
[2020-02-04] MEDS ORDERED: Rizatriptan Benzoate 10 MG MLT TAB PO PRN (19:22)
[2020-02-04] MEDS ORDERED: Azithromycin 500 MG in Sodium Chloride 0.9% 250 ML 250 ML IVPB SCH (20:00)
[2020-02-04] MEDS: Mexiletine HCl 150 MG CAP PO SCH (20:47)
[2020-02-04] MEDS: DULoxetine 30 MG CAP PO SCH (20:50)
[2020-02-04] MEDS: Apixaban 2.5 MG TAB PO SCH (20:50)
[2020-02-04] MEDS ORDERED: traZODone HCl 50 MG TAB PO SCH (21:00)
[2020-02-04] MEDS ORDERED: Gabapentin 300 MG CAP PO SCH (21:00)
[2020-02-04] MEDS ORDERED: Topiramate 100 MG TAB PO SCH (21:00)
[2020-02-04 22:05] VITALS: BMI 19.8
[2020-02-04] MEDS: GABAPENTIN PO SCH (23:15)
[2020-02-05 04:15] LABS: #Eosinphils 0.1 thou/uL (0.0-0.7); #Lymphocytes 1.3 thou/uL (1.20-3.40); #Monocytes 0.3 thou/uL (0.11-0.59); #Neutrophils 1.7 thou/uL (1.40-6.50); %Basophils 0.3 % (0.0-1.0); %Eosinophils 3.5 % (0.0-10.0); %Lymphocytes 36.9 % (21.0-51.0); %Monocytes 9.4 % (0.0-10.0); Hemoglobin 10.4 g/dL (12.0-16.0); Mean Corpuscular Hemoglobin 27.5 pg (27.0-31.0); Mean Corpuscular Volume 86.2 fL (78.0-98.0); Platelet Count 157 thou/uL (130-400); RBC Distribution Width 19.3 % (11.5-14.5); Red Blood Cell (RBC) Count 3.77 mill/uL (4.20-5.40); White Blood Cell (WBC) Count 3.4 thou/uL (4.8-10.8)
[2020-02-05 05:14] LABS: ALT (SGPT) 7 U/L (8-55); AST (SGOT) 11 U/L (5-34); Albumin 3.2 g/dL (3.5-5.0); Alkaline Phosphatase 66 U/L (40-110); Anion Gap 11 mmol/L (10-20); BUN (Urea Nitrogen) 11 mg/dL (9.8-20.1); Bilirubin, Total 0.2 mg/dL (0.2-1.2); Calc. Creatinine Clearance 70 mL/min (70-130); Carbon Dioxide 27 mmol/L (22-29); Chloride 106 mmol/L (98-107); Estimated GFR-MDRD 74; Globulin 2.8 g/dL (2.4-3.5); Glucose 89 mg/dL (70-105); Potassium 3.2 mmol/L (3.5-5.1); Sodium 141 mmol/L (136-145)
[2020-02-05] MEDS ORDERED: Diabetic Tussin 200 MG/10 ML UDCUP PO PRN (05:42)
[2020-02-05] MEDS ORDERED: Acetaminophen 325 MG TAB PO PRN (05:43)
[2020-02-05] MEDS ORDERED: Potassium Chloride 20 MEQ TAB PO SCH (05:45)
[2020-02-05] MEDS ORDERED: Levothyroxine Sodium 125 MCG TAB PO SCH (06:00)
--- NOTE | 2020-02-05 06:02 | HP ---
Please see the history and physical done by Dr. Jane, for which I agree. HISTORY OF PRESENT ILLNESS: This is a 55-year-old patient, who in March of 2019, apparently had a suicide attempt, for which she was down for almost 72 hours, which resulted in deep venous thrombosis and then also dropped foot and vascular compromise of the right lower extremity. She has history of neurocardiogenic syncope. She is being followed by Cardiology for that. Chronic DVTs and is on Eliquis for that, had an IVC filter placed, but comes in because of hemoptysis. Sounds like has had a little bit of a runny nose for 4 or 5 days. No fever, but then starting yesterday and last night started coughing, it got worse, even produced a little bit of bloody sputum. CT showed a possible previous infarct, wedge-shaped peripheral lesion in posterior medial aspect of the superior segment of the right lower lobe, but it sounds like they compared to 11/18 and saw it on that a resolving area of infarct, but what is new is widespread fairly diffuse and symmetrical scattered areas of nodularity involving both lobes that could be inflammatory or infectious. The radiologist apparently was concerned about the possibility of this being characteristic of COVID-19. The patient has not traveled out of the state in a while, did have a private plane trip to [place] for work. But no direct contact for a major risk for COVID-19. She has not had fever. Not really even short of breath, just having the hemoptysis. PAST MEDICAL HISTORY: All per the resident's history and physical, for which I agree. PAST SURGICAL HISTORY: All per the resident's history and physical, for which I agree. MEDICATIONS: All per the resident's history and physical, for which I agree. SOCIAL HISTORY: All per the resident's history and physical, for which I agree. REVIEW OF SYSTEMS: All per the resident's history and physical, for which I agree. PHYSICAL EXAMINATION: VITAL SIGNS: Afebrile, temperature is like right at 99.3 T-max. ENT: Looks fairly normal. CHEST: Actually is fairly clear. I do not appreciate any crackles. Good air movement. CARDIAC: Regular rate and rhythm. ABDOMEN: Benign. EXTREMITIES: Right lower extremity has trace edema. Has a footdrop, is very hypersensitive to the touch. LABORATORY DATA: CT as described above. Hemoglobin a little bit low at 10.8 and white count is normal. INR is normal. Basic metabolic panel is pretty normal as well. ASSESSMENT AND PLAN: 1. Likely community-acquired pneumonia versus some other kind of inflammatory lung condition now with hemoptysis. Plan is to admit her. We already checked for COVID-19. We will keep her in isolation, respiratory contact, and go ahead and cover her with antibiotics like atypical pneumonia and I have already discussed this case with Pulmonology, or at least the resident has. We will continue the same anticoagulants for now, although we decreased the amount because of the hemoptysis. We will follow H and H closely. 2. Neurocardiogenic syncope, on IV fluids. Monitor on telemetry. 3. Migraines. Do not mind giving her Maxalt, she states she has taken it fine before. Job ID: [id number]
--- NOTE | 2020-02-05 07:40 | PDOC.FM ---
- Subjective Subjective: Doing well, only one episode of blood streaked sputum on cough last night. otherwise no complaints - Objective Vital Signs & Weight: Vital Signs (12 hours) Temp Pulse Ox 02/05/20 06:00 97.7 F 02/05/20 01:00 98.9 F 02/04/20 20:00 99 Weight Weight 55.792 kg Most Recent Monitor Data Heart Rate from ECG 82 NIBP 129/81 NIBP BP-Mean 97 Respiration from ECG 14 SpO2 98 I&O: 02/04/20 02/05/20 02/06/20 06:59 06:59 06:59 Intake Total 700 Output Total 650 Balance 50 Result Diagrams: 02/05/20 04:05 02/05/20 04:05 Phys Exam - Physical Examination Constitutional: NAD HEENT: moist MMs, sclera anicteric Neck: no nodes, no JVD Respiratory: no wheezing, clear to auscultation bilateral Cardiovascular: RRR, no significant murmur Gastrointestinal: soft, non-tender Musculoskeletal: no edema, pulses present Neurological: normal sensation, moves all 4 limbs Psychiatric: normal affect, A&O x 3 Skin: no rash, normal turgor Dx/Plan (1) Hemoptysis Code(s): R04.2 - HEMOPTYSIS Status: Acute (2) Cavitary lesion of lung Code(s): J98.4 - OTHER DISORDERS OF LUNG Status: Acute (3) Deep vein thrombosis (DVT) of popliteal vein of right lower extremity Code(s): I82.431 - ACUTE EMBOLISM AND THROMBOSIS OF RIGHT POPLITEAL VEIN Status: Acute Qualifiers: Chronicity: acute Qualified Code(s): I82.431 - Acute embolism and thrombosis of right popliteal vein (4) Anemia Code(s): D64.9 - ANEMIA, UNSPECIFIED Status: Chronic (5) Asthma Code(s): J45.909 - UNSPECIFIED ASTHMA, UNCOMPLICATED Status: Chronic (6) Depression Code(s): F32.9 - MAJOR DEPRESSIVE DISORDER, SINGLE EPISODE, UNSPECIFIED Status : Chronic (7) Dysautonomia Code(s): G90.9 - DISORDER OF THE AUTONOMIC NERVOUS SYSTEM, UNSPECIFIED Status : Chronic (8) Foot drop, right Code(s): M21.371 - FOOT DROP, RIGHT FOOT Status: Chronic (9) History of alcohol abuse Code(s): F10.11 - ALCOHOL ABUSE, IN REMISSION Status: Chronic (10) Hx of suicide attempt Code(s): Z91.5 - PERSONAL HISTORY OF SELF-HARM Status: Chronic (11) Hypertension Code(s): I10 - ESSENTIAL (PRIMARY) HYPERTENSION Status: Chronic Qualifiers: Hypertension type: essential hypertension Qualified Code(s): I10 - Essential (primary) hypertension - Plan Plan: Hemoptysis 2/2 atypical pneumonia, r/o COVID-19 A- stable. RVP negative. CT scan suggest micronodular densities that are characteristic of COVID-19. Without being febrile it is more suspicious that this cause is 2/2 atypical pneumonia vs. scarring on RLL necrotic region. Public Health department ID docs contacted (appreciate recs) and viral panel ( including COVID-19) sent to lab to be sent to health department for testing. Cardiopulmonary status is stable. She is on RA. P- droplet and airborn precautions -Azithromycin -monitor h/h -reduced dose of eliquis to 2.5mg BID HTN A- blood pressure labile 2/2 dysautonomia P- will continue home medications at this time Hx of PE with current DVT A- patient had IVC filter placed in 2019 P- continue eliquis at 1/2 dose Asthma A- patient satting 99% on RA. respiratory exam CTAB P- will continue to monitor Depression -continue home meds Hx of alcohol abuse - has been sober for last 8 months Anemia -chronic, pt at baseline Foot drop since March 2019 -MD aware Dysautonomia reflex sympathetic dystrophy -MD aware DVT ppx: IVC filter, eliquis Code: FULL
[2020-02-05] MEDS ORDERED: Hydrochlorothiazide 25 MG TAB PO SCH (09:00)
[2020-02-05] MEDS ORDERED: ARIPIPRAZOLE 5 MG PO SCH (09:00)
[2020-02-05] MEDS ORDERED: FLU VACC QS2019-20(6MOS UP)/PF 60 MCG/0.5 ML SYRINGE IM ONE (09:00)
[2020-02-05] MEDS ORDERED: Lisinopril 10 MG TAB PO SCH (09:00)
[2020-02-05] MEDS ORDERED: Midodrine HCl 5 MG TAB PO SCH ×3 (09:00→17:00)
[2020-02-05] MEDS: Apixaban 2.5 MG TAB PO SCH (09:29)
[2020-02-05] MEDS: DULoxetine 30 MG CAP PO SCH (09:29)
[2020-02-05] MEDS: Mexiletine HCl 150 MG CAP PO SCH (09:30)
[2020-02-05] MEDS: GABAPENTIN PO SCH (09:32)
[2020-02-05 11:09] VITALS: TEMP 97.9
--- NOTE | 2020-02-05 13:42 | DIS ---
DATE OF ADMISSION: 02/04/2020 DATE OF DISCHARGE: 02/05/2020 RESIDENT: Ridge Jane MD, I saw the patient for a total of two days. DISCHARGE ATTENDING: Mookie Lu MD CONSULTATIONS: Pulmonology, Dr. Coyle. PROCEDURES: On 02/04/2020, chest CT: 1. Impression, no CT evidence of pulmonary embolus. Diffuse and somewhat symmetric abnormalities throughout each lung including a fine micronodular interstitial prominence and scattered tiny ill-defined nodules, nonspecific appearance, which can be seen with diffuse pulmonary autoimmune processes and nonspecific inflammatory process. These are favored over metastatic disease. DISCHARGE MEDICATIONS: 1. Topiramate 300 mg p.o. at bedtime. 2. Pantoprazole 40 mg p.o. q.a.m. 3. Mexiletine 200 mg p.o. b.i.d. 4. Duloxetine 30 mg p.o. b.i.d. 5. Midodrine 15 mg p.o. q.a.m. 6. Midodrine 10 mg p.o. every 1200 hours. 7. Midodrine 10 mg p.o. every 1700 hours. 8. Metoprolol tartrate 100 mg p.o. b.i.d. 9. Trazodone 100 mg p.o. at bedtime. 10. Melatonin 3 mg p.o. at bedtime. 11. Gabapentin 1500 mg p.o. t.i.d. 12. Levothyroxine 125 mcg p.o. daily. 13. Hydralazine 12.5 mg p.o. daily p.r.n. 14. Lisinopril 10 mg p.o. daily. 15. Abilify 5 mg p.o. daily. 16. Hydrochlorothiazide 25 mg p.o. daily. 17. Eliquis 5 mg p.o. b.i.d., to be resumed 2 days after discharge. 18. Azithromycin 500 mg p.o. daily for 4 more days. PRIMARY DIAGNOSIS: Hemoptysis secondary to chronic right lower lobe cavitary lesion and atypical pneumonia. SECONDARY DIAGNOSES: Hypertension, history of pulmonary embolism with recurrent deep venous thrombosis, asthma, depression, history of alcohol abuse, anemia, foot drop, dysautonomia, and reflex sympathetic dystrophy. HISTORY OF PRESENT ILLNESS AND HOSPITAL COURSE: This is a 55-year-old female, who presented to the hospital with complaint of hemoptysis x2 days. The patient was previously hospitalized on November 10 for hemoptysis and found to have a cavitary necrotic lesion in her lung, right lower lobe. The patient at that time was discharged with plans for outpatient followup with Pulmonology; however, secondary to insurance and transportation issues, the patient was never able to follow up or have a biopsy of the lesion in her lung. The patient was admitted for concern of COVID-19. It was reported that a COVID-19 tests had been sent from our lab to the Public Health Department as the patient had micronodular pattern on CT scan, which was somewhat nonspecific, but concerning for coronavirus. The patient was admitted and treated supportively in addition to azithromycin for atypical pneumonia. The patient's Eliquis which she had been treated with half dose to be 2.5 mg p.o. b.i.d. while in hospital. The next day, the case was discussed with Pulmonology and Infectious Disease, Dr. Cedeno and considering the fact that the patient had not traveled out of the state or had any contacts with positive COVID-19 cases, it was extremely unlikely that the patient actually had COVID-19, and she would not require inpatient isolation, though it was recommended that she be discharged home to self isolate and have outpatient testing of COVID-19. On calling the lab, it was apparent that COVID-19 testing had not been accomplished and would not be able to be accomplished until the next Thursday morning and so, the patient was discharged home with instructions to self isolate, complete the course of azithromycin, and seek out outpatient testing for COVID-19 [facility]. The patient is to follow up with PCP after testing is negative or as needed for worsening of respiratory status. INTERVAL HX 02/20/2020: pt did have testing completed before leaving the hospital and was contacted outpt once testing resulted NEGATIVE. DISPOSITION: Stable. DISCHARGE INSTRUCTIONS: 1. Location: Home. 2. Activity: As tolerated. 3. Diet: Regular. 4. Followup: Follow up with Dr. Dustin Avery in 2 to 3 weeks after confirmed negative COVID testing Job ID: [id number] [facility]
--- NOTE | 2020-02-06 05:07 | PRG ---
DATE OF SERVICE: 02/05/2020 Please see the note from Dr. Jane, for which I agree. The patient was seen, evaluated, and discussed and examined by bedside with the resident. Basically, no major changes. Cough suppressant working, less cough. Not really had any fever. Some sputum still occasionally blood tinged. Not really having a lot of other signs or symptoms at this point in time. It sounds like we have both Pulmonary and Infectious Disease coming alongside us in this patient's care for recommendations. She has an IVC filter and the question is why is she on Eliquis. It sounds like they were a little concerned about that maybe the clot in her leg was expanding, and so she went on Eliquis. The reason why she was initially off Eliquis and IVC filter was placed, was a high fall risk because she was having the neurocardiogenic syncopal spells and they were worried with anticoagulation, she might fall and hit her head. But she states since she had IVC filter in, she has had no more of these spells, and that is why she restarted the Eliquis, but we decreased it from 5 mg twice a day to 2.5 mg twice a day because of hemoptysis and that is basically where we are at, at this point in time. So we are keeping her isolated, like this is potentially a COVID-19 case, although seems like the yield at this point in time is fairly low that that is the situation. So, we are discussing with both infectious disease doctors and local health department recommendations as far as can she be sent home on isolation or do we just keep her inpatient until we can at least get the results back. Her white count is low, which does make this whole thing seem more like a viral pneumonia, but is on antibiotics in case this is an atypical bacterial pneumonia. Job ID: [id number]
== END 2020-02-05 13:55 | disposition home or self-care (01) | DRG 194 ==
LOC: ERS 12:19 → CCU 15:18
PROVIDERS: ADMIT Family Medicine; ATTEND Family Medicine
DX: J18.9 Pneumonia, unspecified organism (principal); I82.431 Acute embolism and thrombosis of right popliteal vein; R04.2 Hemoptysis; Z98.84 Bariatric surgery status; Z90.49 Acquired absence of other specified parts of digestive tract; Z90.710 Acquired absence of both cervix and uterus; E03.9 Hypothyroidism, unspecified; I10 Essential (primary) hypertension; J45.909 Unspecified asthma, uncomplicated; F32.9 Major depressive disorder, single episode, unspecified; R91.1 Solitary pulmonary nodule; D64.9 Anemia, unspecified; G90.1 Familial dysautonomia [Riley-Day]; M21.371 Foot drop, right foot; Z91.5 Personal history of self-harm; G43.909 Migraine, unspecified, not intractable, without status migrainosus; J98.4 Other disorders of lung; Z20.828 Contact with and (suspected) exposure to other viral communicable diseases
CPT/HCPCS: 36415; 71275; 80053; 85025; 85610; 85730; 87633; 93005; 96374; 96375; J0360; J0456; J2405; J7050; Q9967; U0001

== ENCOUNTER 2020-02-14 09:21 | Emergency (ER) | payer OTHER ==
[2020-02-14 10:45] LABS: #Eosinphils 0.2 thou/uL (0.0-0.7); #Lymphocytes 1.5 thou/uL (1.20-3.40); #Monocytes 0.5 thou/uL (0.11-0.59); #Neutrophils 2.3 thou/uL (1.40-6.50); %Basophils 0.3 % (0.0-1.0); %Eosinophils 4.2 % (0.0-10.0); %Lymphocytes 33.9 % (21.0-51.0); %Monocytes 11.6 % (0.0-10.0); Hemoglobin 10.5 g/dL (12.0-16.0); Mean Corpuscular HGB CONC 31.5 g/dL (32.0-36.0); Mean Corpuscular Hemoglobin 27.7 pg (27.0-31.0); Mean Corpuscular Volume 87.9 fL (78.0-98.0); Mean Platelet Volume 9.7 fL (7.4-10.4); Platelet Count 234 thou/uL (130-400); RBC Distribution Width 18.1 % (11.5-14.5); Red Blood Cell (RBC) Count 3.81 mill/uL (4.20-5.40); White Blood Cell (WBC) Count 4.5 thou/uL (4.8-10.8)
[2020-02-14 11:08] LABS: ALT (SGPT) 11 U/L (8-55); AST (SGOT) 17 U/L (5-34); Albumin 3.4 g/dL (3.5-5.0); Alkaline Phosphatase 61 U/L (40-110); Anion Gap 11 mmol/L (10-20); BUN (Urea Nitrogen) 17 mg/dL (9.8-20.1); Bilirubin, Total 0.2 mg/dL (0.2-1.2); Calc. Creatinine Clearance 0 mL/min (70-130); Calcium 9.2 mg/dL (7.8-10.44); Carbon Dioxide 27 mmol/L (22-29); Chloride 105 mmol/L (98-107); Estimated GFR-MDRD 76; Glucose 94 mg/dL (70-105); Protein, Total 6.4 g/dL (6.0-8.3); Sodium 139 mmol/L (136-145)
--- NOTE | 2020-02-14 11:11 | RAD ---
PORTABLE CHEST: Date: 02/14/2020 HISTORY: Fever and cough. COMPARISON: 11/18/2019. FINDINGS: The lungs are clear. No evidence of infiltrate. Heart and mediastinum unremarkable. Vasculature jennifer l. IMPRESSION: No acute findings. POS: [facility]
== END 2020-02-14 11:53 | disposition home or self-care (01) ==
LOC: ERS 09:21
DX: R05 Cough (principal); I10 Essential (primary) hypertension; J45.909 Unspecified asthma, uncomplicated; E03.9 Hypothyroidism, unspecified; F32.9 Major depressive disorder, single episode, unspecified; Z79.899 Other long term (current) drug therapy; Z86.711 Personal history of pulmonary embolism; Z79.01 Long term (current) use of anticoagulants
CPT/HCPCS: 36415; 71045; 80053; 83605; 85025; 87804

== ENCOUNTER 2020-03-28 12:54 | Outpatient (CLI) | payer OTHER ==
--- NOTE | 2020-03-28 16:36 | CT ---
CT HEAD WITHOUT CONTRAST: 03/28/20 INDICATIONS: Falls with injury to head. COMPARISON: Comparison made to head CT of 11/18/19. FINDINGS: Ventricles have normal size and position. No evidence of intracranial mass, hemorrhage, or infarct. T he findings are stable when compared to the 11/18/19 exam. The visualized sinuses are clear. IMPRESSION: No acute process identified. POS: [facility]
== END 2020-03-28 12:55 | disposition home or self-care (01) ==
LOC: SCSCT 12:54
PROVIDERS: ATTEND Student in an Organized Health Care Education/Training Program
DX: S06.0X0A Concussion without loss of consciousness, initial encounter (principal)
CPT/HCPCS: 70450

== ENCOUNTER 2020-04-03 13:14 | Inpatient (IN) | payer OTHER ==
[2020-04-03] MEDS ORDERED: Ondansetron PF 4 MG/2 ML Vial ONE (13:53)
[2020-04-03 14:16] LABS: Hemoglobin 9.3 g/dL (12.0-16.0); Mean Corpuscular HGB CONC 32.5 g/dL (32.0-36.0); Mean Corpuscular Hemoglobin 28.4 pg (27.0-31.0); Mean Corpuscular Volume 87.5 fL (78.0-98.0); Mean Platelet Volume 9.3 fL (7.4-10.4); Platelet Count 136 thou/uL (130-400); RBC Distribution Width 13.8 % (11.5-14.5); Red Blood Cell (RBC) Count 3.27 mill/uL (4.20-5.40); White Blood Cell (WBC) Count 15.2 thou/uL (4.8-10.8)
[2020-04-03 14:31] LABS: ALT (SGPT) 10 U/L (8-55); AST (SGOT) 20 U/L (5-34); Albumin 2.8 g/dL (3.5-5.0); Alkaline Phosphatase 110 U/L (40-110); Anion Gap 15 mmol/L (10-20); BUN (Urea Nitrogen) 44 mg/dL (9.8-20.1); Bilirubin, Total 0.5 mg/dL (0.2-1.2); Calc. Creatinine Clearance 0 mL/min (70-130); Calcium 7.5 mg/dL (7.8-10.44); Carbon Dioxide 25 mmol/L (22-29); Chloride 98 mmol/L (98-107); Estimated GFR-MDRD 20; Globulin 2.4 g/dL (2.4-3.5); Glucose 106 mg/dL (70-105); Protein, Total 5.2 g/dL (6.0-8.3); Sodium 135 mmol/L (136-145)
[2020-04-03 14:34] LABS: Potassium 2.9 mmol/L (3.5-5.1)
[2020-04-03 14:37] LABS: Band 35 % (5-11); Hypochromia SLIGHT = 6-15 cells (100X) (0-5/hpf); Lymphocytes 1 % (21-51); MDiff Complete? YES; Monocytes 4 % (0-10); Neutrophil 60 % (42-75); Platelet Morphology Comment Appears Adequate; Polychromasia SLIGHT = 2-3 cells (100X) (0-2/hpf)
[2020-04-03] MEDS ORDERED: cefTRIAXone\\ROCEPHIN 2 GM VIAL ONE (14:50)
[2020-04-03 15:16] LABS: Bilirubin Negative (Negative); Blood, Urine Small (Negative); Glucose, Urine (Dipstick) Negative (Negative); Leukocyte Moderate (Negative); Nitrite Negative (Negative); Protein, Urine (Dipstick) 100 mg/dL (Neg-Trace)
[2020-04-03 15:19] LABS: Clarity Cloudy (Clear)
[2020-04-03 15:22] LABS: Bacteria/HPF 3+ HPF (None Seen); RBC/HPF 0-3 HPF (0-3); WBC/HPF Greater Than 50 HPF (0-3)
--- NOTE | 2020-04-03 15:25 | RAD ---
EXAM: CHEST ONE VIEW: 04/03/20 HISTORY: Cough. COMPARISON: 02/14/20 FINDINGS: Heart size is normal. The lungs are clear. No confluent pneumonia, overt edema, or pleural effusion. IMPRESSION: No significant acute intrathoracic disease. No evidence for pneumonia. Stable from prior study. POS: [facility]
--- NOTE | 2020-04-03 15:32 | PDOC.FPRHP ---
- History of Present Illness Chief Complaint: cough/dysuria History of Present Illness: ms. Caceres is a 55 yo f w/ a pmhx sig for dysautonomia, depression, asthma she reports 3 days ago she was coughed on at the grocery store and since that time has had cough, congestion, and fever 102. she denies body aches, reports this morning she was feeling sob so called ems. additionally she reports she has had some lower abdominal pressure, cloudy urine, and CVA tenderness. ED Course: cbc, cmp, LA, cxr, trop, ekg, ucx, covid 3L NS, rocephin, azithro, KCl - Allergies/Adverse Reactions Allergies Allergy/AdvReac Type Severity Reaction Status Date / Time codeine Allergy Hives Verified 02/13/20 08:21 gatifloxacin [From Tequin] Allergy Verified 02/13/20 08:21 Influenza Virus Vaccines Allergy Verified 02/13/20 08:21 levofloxacin [From Levaquin] Allergy Verified 02/13/20 08:21 pneumococcal vaccine Allergy Anaphylaxis Verified 02/13/20 08:21 - Home Medications Medication Instructions Recorded Confirmed Type DULoxetine [Cymbalta] 30 mg PO BID 10/13/19 04/03/20 History Midodrine HCl 10 mg PO 1200 10/13/19 04/03/20 History Midodrine HCl 10 mg PO 1700 10/13/19 04/03/20 History Midodrine HCl 15 mg PO QAM 10/13/19 04/03/20 History Pantoprazole [Protonix] 40 mg PO QAM 10/13/19 04/03/20 History Topiramate 300 mg PO HS 10/13/19 04/03/20 History carBAMazepine [Tegretol] 200 mg PO BID 10/13/19 04/03/20 History Gabapentin [Neurontin] 1,500 mg PO TID 11/18/19 04/03/20 History Melatonin 3 mg PO HS 11/18/19 04/03/20 History traZODone HCl [Trazodone HCl] 100 mg PO HS 11/18/19 04/03/20 History Levothyroxine Sodium [Synthroid] 125 mcg PO 0600 tab 11/19/19 04/03/20 Rx Mexiletine HCl 150 mg PO BID cap 11/19/19 04/03/20 Rx hydrALAZINE [Apresoline] 12.5 mg PO DAILYPRN PRN tab 11/19/19 04/03/20 Rx Hydrochlorothiazide 25 mg PO DAILY 02/04/20 04/03/20 History Lisinopril 10 mg PO DAILY 02/04/20 04/03/20 History Apixaban [Eliquis] 5 mg PO BID #0 tab 02/05/20 04/03/20 Rx Benzonatate [Tessalon] 100 mg PO TID PRN #30 cap 02/08/20 04/03/20 Rx Metoprolol Succinate 100 mg PO DAILY 04/03/20 04/03/20 History - History PMHx: dysautonomia reflex sympathetic dystrophy, pseudoseizures, HTN, asthma, IVC filter placement, hypothyroidism, depression, foot drop since suicide attempt in March 2019, anemia, hx of alcohol abuse PSHx: hysterectomy, gastric bypass, appendectomy, cholecystectomy, x2 , spinal fusion S1-L5, IVC filter FHx: brother-lymphoma, mother-migraines, hypothyroidism, hypoglycemia, father- CABG, brother-esophageal cancer Social: hx of alcohol abuse, sober for last 11 months; denies drug use or smoking hx - Review of Systems General: reports: fever/chills. denies: weight/appetite/sleep changes Eyes: denies: vision changes ENT: reports: nasal congestion, rhinorrhea Respiratory: reports: cough, shortness of breath. denies: congestion Cardiovascular: denies: chest pain, palpitation, edema Gastrointestinal: denies: nausea, vomiting, diarrhea Genitourinary: reports: dysuria. denies: incontinence Skin: denies: rashes Musculoskeletal: denies: pain, tenderness Neurological: denies: numbness, syncope - Vital signs BP 81/57, Pulse: 88, Resp: 18, Temp: 98.9 (Oral), Pain: 10, O2 sat: 99 on ( Room Air - Physical Exam Constitutional: NAD HEENT: normocephalic and atraumatic, grossly normal vision, grossly normal hearing Neck: trachea midline Chest: no-tender to palpation Heart: RRR, normal S1/S2 Lungs: CTAB, no respiratory distress Abdomen: other (ttp suprapubic) Musculoskeletal: normal tone Neurological: no focal deficit Skin: no rash/lesions Heme/Lymphatic: no unusual bruising or bleeding Psychiatric: normal mood and affect FMR H&P: Results - Labs Result Diagrams: 04/03/20 14:00 04/03/20 14:00 Lab results: WBC 15.2 thou/uL (4.8-10.8) H 04/03/20 14:00 Hgb 9.3 g/dL (12.0-16.0) L 04/03/20 14:00 Hct 28.6 % (36.0-47.0) L 04/03/20 14:00 MCV 87.5 fL (78.0-98.0) 04/03/20 14:00 Plt Count 136 thou/uL (130-400) 04/03/20 14:00 Band Neuts % (Manual) 35 % (5-11) H 04/03/20 14:00 Sodium 135 mmol/L (136-145) L 04/03/20 14:00 Potassium 2.9 mmol/L (3.5-5.1) L* 04/03/20 14:00 Chloride 98 mmol/L (98-107) 04/03/20 14:00 Carbon Dioxide 25 mmol/L (22-29) 04/03/20 14:00 BUN 44 mg/dL (9.8-20.1) H 04/03/20 14:00 Creatinine 2.49 mg/dL (0.6-1.1) H 04/03/20 14:00 Glucose 106 mg/dL (70-105) H 04/03/20 14:00 Lactic Acid 1.6 mmol/L (0.5-2.2) 04/03/20 14:00 Calcium 7.5 mg/dL (7.8-10.44) L 04/03/20 14:00 Total Bilirubin 0.5 mg/dL (0.2-1.2) 04/03/20 14:00 AST 20 U/L (5-34) 04/03/20 14:00 ALT 10 U/L (8-55) 04/03/20 14:00 Alkaline Phosphatase 110 U/L (40-110) 04/03/20 14:00 Serum Total Protein 5.2 g/dL (6.0-8.3) L 04/03/20 14:00 Albumin 2.8 g/dL (3.5-5.0) L 04/03/20 14:00 Urine Ketones Negative mg/dL (Negative) 04/03/20 15:08 Urine Blood Small (Negative) A 04/03/20 15:08 Urine Nitrite Negative (Negative) 04/03/20 15:08 Ur Leukocyte Esterase Moderate (Negative) H 04/03/20 15:08 Urine RBC 0-3 HPF (0-3) 04/03/20 15:08 Urine WBC Greater Than 50 HPF (0-3) A 04/03/20 15:08 Urine Bacteria 3+ HPF (None Seen) A 04/03/20 15:08 - Radiology Interpretation Chest x-ray Status: image reviewed by me Additional comment: stable, no intrathoracic abnormalities FMR H&P: A/P - Problem List (1) Deep vein thrombosis (DVT) of popliteal vein of right lower extremity Current Visit: No Status: Acute Code(s): I82.431 - ACUTE EMBOLISM AND THROMBOSIS OF RIGHT POPLITEAL VEIN Qualifiers: Chronicity: acute Qualified Code(s): I82.431 - Acute embolism and thrombosis of right popliteal vein (2) Hypokalemia Current Visit: No Status: Acute Code(s): E87.6 - HYPOKALEMIA (3) Orthostatic hypotension Current Visit: No Status: Acute Code(s): I95.1 - ORTHOSTATIC HYPOTENSION (4) Anemia Current Visit: No Status: Chronic Code(s): D64.9 - ANEMIA, UNSPECIFIED (5) Asthma Current Visit: No Status: Chronic Code(s): J45.909 - UNSPECIFIED ASTHMA, UNCOMPLICATED (6) Depression Current Visit: No Status: Chronic Code(s): F32.9 - MAJOR DEPRESSIVE DISORDER , SINGLE EPISODE, UNSPECIFIED (7) Dysautonomia Current Visit: No Status: Chronic Code(s): G90.9 - DISORDER OF THE AUTONOMIC NERVOUS SYSTEM, UNSPECIFIED (8) Foot drop, right Current Visit: No Status: Chronic Code(s): M21.371 - FOOT DROP, RIGHT FOOT (9) Hypertension Current Visit: No Status: Chronic Code(s): I10 - ESSENTIAL (PRIMARY) HYPERTENSION Qualifiers: Hypertension type: essential hypertension Qualified Code(s): I10 - Essential (primary) hypertension (10) Hypothyroidism Current Visit: No Status: Chronic Code(s): E03.9 - HYPOTHYROIDISM, UNSPECIFIED - Plan Sepsis 2/2 UTI - elevated wbc, hypotense, and + UA on admission - s/p 3L in ED, oral rehydration - monitor cbc, procal/UCx/BCx pending - of note, bcx obtained after abx begun - continue rocephin RICHARD - likely prerenal, renal US pending - adequately hydrated, monitor bmp Hypokalemia - repleted in ED, monitor dysautonomia reflex sympathetic dystrophy - aware, continue home meds - most likely cause of hypotension pseudoseizures - aware, monitor HTN - aware, hold in light of htn asthma - aware, continue home meds IVC filter placement, DVT of L popliteal - continue eliquis 2.5mg hypothyroidism -aware, continue home meds depression - aware, continue home meds foot drop since suicide attempt in March 2019 - fall precautions anemia - stable, monitor hx of alcohol abuse pcp: terry code: ppx: karissa dispo: admit to inpt tele for treatment/eval, LOS>48hrs FMR H&P: Upper Level - Plan Date/Time: 04/03/20 1529 I, [], have evaluated this patient and agree with findings/plan as outlined by equine intern resident. Pertinent changes/additions are listed here. Addendum - Attending - Attending Attestation Date/Time: 04/03/202022 I personally evaluated the patient and discussed the management with Dr. Ramos. I agree with the History, Examination, Assessment and Plan documented above with any addition or exceptions noted below. Clear CXR, making COVID less likely, although early disease is a possibility. UA with leukocytes and CVAT. Also having nausea and vomiting. I suspect pyelo > COVID. Await sono and micro results. Needs an XR of her foot.
[2020-04-03] MEDS ORDERED: Azithromycin 500 MG VIAL ONE (15:58)
[2020-04-03] MEDS ORDERED: Potassium Chloride 20 MEQ TAB ONE (15:58)
[2020-04-03] MEDS ORDERED: Acetaminophen 650 MG Suppository PR PRN (17:08)
[2020-04-03] MEDS ORDERED: Ondansetron ODT 4 MG TAB PO PRN (17:08)
[2020-04-03] MEDS: Ondansetron PF 4 MG/2 ML Vial IVP PRN (20:16)
[2020-04-03 20:39] VITALS: BMI 10.1
[2020-04-03] MEDS ORDERED: GABAPENTIN 250 MG/5 ML PO SCH (21:00)
[2020-04-03] MEDS: traZODone HCl 50 MG TAB PO SCH (21:05)
[2020-04-03] MEDS: Topiramate 100 MG TAB PO SCH (21:05)
[2020-04-03] MEDS: Acetaminophen 325 MG TAB PO PRN (21:05)
[2020-04-04] MEDS: Acetaminophen 325 MG TAB PO PRN ×3 (05:31→15:17)
[2020-04-04 05:58] LABS: Hemoglobin 9.1 g/dL (12.0-16.0); Mean Corpuscular HGB CONC 31.2 g/dL (32.0-36.0); Mean Corpuscular Hemoglobin 27.5 pg (27.0-31.0); Mean Corpuscular Volume 88.2 fL (78.0-98.0); RBC Distribution Width 13.8 % (11.5-14.5); Red Blood Cell (RBC) Count 3.31 mill/uL (4.20-5.40); White Blood Cell (WBC) Count 6.5 thou/uL (4.8-10.8)
[2020-04-04 06:02] LABS: Anion Gap 13 mmol/L (10-20); BUN (Urea Nitrogen) 38 mg/dL (9.8-20.1); Calc. Creatinine Clearance 15 mL/min (70-130); Calcium 8.2 mg/dL (7.8-10.44); Carbon Dioxide 24 mmol/L (22-29); Chloride 104 mmol/L (98-107); Estimated GFR-MDRD 28; Glucose 86 mg/dL (70-105); Potassium 3.2 mmol/L (3.5-5.1); Sodium 138 mmol/L (136-145)
[2020-04-04 06:36] LABS: #Lymphocytes 0.3 thou/uL (1.20-3.40); #Monocytes 0.2 thou/uL (0.11-0.59); #Neutrophils 5.9 thou/uL (1.40-6.50); %Eosinophils 0.4 % (0.0-10.0); %Lymphocytes 4.5 % (21.0-51.0); %Monocytes 3.6 % (0.0-10.0); %Neutrophils 91.4 % (42.0-75.0); Mean Platelet Volume 9.8 fL (7.4-10.4); Platelet Count 110 thou/uL (130-400); Platelet Morphology Comment Appears Decreased
[2020-04-04] MEDS ORDERED: hydrALAZINE 25 MG TAB PO PRN (06:50)
[2020-04-04] MEDS ORDERED: Benzonatate 100 MG CAP PO PRN (06:50)
--- NOTE | 2020-04-04 07:00 | PDOC.FM ---
- Subjective Subjective: pt resting comfortably in bed, reports pain all over/feverish. denies SOB - Objective Vital Signs & Weight: Vital Signs (12 hours) Temp Pulse Resp BP Pulse Ox 04/04/20 04:00 101.0 F H 90 20 119/79 98 04/04/20 00:00 99.5 F 94 16 118/59 L 98 04/03/20 20:44 100.6 F H 93 20 123/64 100 04/03/20 20:00 100 Weight Weight 28.576 kg I&O: 04/02/20 04/03/20 04/04/20 06:59 06:59 06:59 Intake Total 600 Output Total 800 Balance -200 Result Diagrams: 04/04/20 04:48 04/04/20 04:48 Phys Exam - Physical Examination Constitutional: NAD HEENT: moist MMs Neck: no JVD Gastrointestinal: no distention Musculoskeletal: no edema Neurological: moves all 4 limbs Psychiatric: normal affect Skin: no rash Dx/Plan (1) Deep vein thrombosis (DVT) of popliteal vein of right lower extremity Code(s): I82.431 - ACUTE EMBOLISM AND THROMBOSIS OF RIGHT POPLITEAL VEIN Status: Acute Qualifiers: Chronicity: acute Qualified Code(s): I82.431 - Acute embolism and thrombosis of right popliteal vein (2) Hypokalemia Code(s): E87.6 - HYPOKALEMIA Status: Acute (3) Orthostatic hypotension Code(s): I95.1 - ORTHOSTATIC HYPOTENSION Status: Acute (4) Anemia Code(s): D64.9 - ANEMIA, UNSPECIFIED Status: Chronic (5) Asthma Code(s): J45.909 - UNSPECIFIED ASTHMA, UNCOMPLICATED Status: Chronic (6) Depression Code(s): F32.9 - MAJOR DEPRESSIVE DISORDER, SINGLE EPISODE, UNSPECIFIED Status : Chronic (7) Dysautonomia Code(s): G90.9 - DISORDER OF THE AUTONOMIC NERVOUS SYSTEM, UNSPECIFIED Status : Chronic (8) Foot drop, right Code(s): M21.371 - FOOT DROP, RIGHT FOOT Status: Chronic (9) Hypertension Code(s): I10 - ESSENTIAL (PRIMARY) HYPERTENSION Status: Chronic Qualifiers: Hypertension type: essential hypertension Qualified Code(s): I10 - Essential (primary) hypertension (10) Hypothyroidism Code(s): E03.9 - HYPOTHYROIDISM, UNSPECIFIED Status: Chronic - Plan Plan: Sepsis 2/2 UTI - elevated wbc, hypotense, and + UA on admission - s/p 3L in ED, oral rehydration - monitor cbc, UCx/BCx pending - of note, bcx obtained after abx begun - continue rocephin cough - clear cxr, unlikely viral illness - covid swab pending from ED Foot pain - possible fx in R 4th toe, xray pending RICHARD - likely prerenal, renal US pending - adequately hydrated, monitor bmp Hypokalemia - repleted in ED, monitor dysautonomia reflex sympathetic dystrophy - aware, continue home meds - most likely cause of hypotension pseudoseizures - aware, monitor HTN - aware, hold in light of htn asthma - aware, continue home meds IVC filter placement, DVT of L popliteal - continue eliquis 2.5mg hypothyroidism -aware, continue home meds depression - aware, continue home meds foot drop since suicide attempt in March 2019 - fall precautions anemia - stable, monitor hx of alcohol abuse pcp: terry code: full ppx: eliquis dispo: continue treatment for UTI. Addendum - Attending - Attending Attestation Date/Time: 04/04/20 1122 I personally evaluated the patient and discussed the management with Dr. Ramos. I agree with the History, Examination, Assessment and Plan documented above with any addition or exceptions noted below. COVID negative, here for sepsis 2/2 UTI. Likely E coli. Continue antibiotics and await cultures.
--- NOTE | 2020-04-04 08:20 | ULT ---
RENAL ULTRASOUND: Comparison: None. History: Urinary tract infection and acute kidney injury. Technique: Multiplanar grayscale and color doppler images are obtained in a renal ultrasound. FINDINGS: The kidneys are normal in echogenicity without hydronephrosis or calculi measuring 10.4 and 9.6 cm in length on the right and left respectively. Limited evaluation of the urinary bladder is unremarkable . IMPRESSION: Unremarkable renal ultrasound. POS: [facility]
[2020-04-04] MEDS: Hydrochlorothiazide 25 MG TAB PO SCH ×2 (08:38→09:45)
[2020-04-04] MEDS: DULoxetine 30 MG CAP PO SCH ×2 (08:38→21:28)
[2020-04-04] MEDS: Lisinopril 10 MG TAB PO SCH ×2 (08:39→09:46)
[2020-04-04] MEDS ORDERED: Gabapentin 300 MG CAP PO SCH (09:00)
--- NOTE | 2020-04-04 10:07 | RAD ---
RIGHT FOOT THREE VIEWS: History: Toe pain. No history of trauma is given. FINDINGS: The bones are demineralized. There are arthritic changes of the first metatarsal phalangeal joint. Th ere is a small old appearing avulsive injury involving the medial malleolus. In reviewing the previou s 10-31-19 study I do not see a significant degree of interval change. IMPRESSION: Stable exam. POS: [facility]
[2020-04-04] MEDS: Midodrine HCl 5 MG TAB PO SCH ×3 (10:54→17:40)
[2020-04-04 10:58] LABS: SARS-CoV-2 MS2 Positive; SARS-CoV-2 N Gene Negative; SARS-CoV-2 S Gene Negative; SARS-CoV-2 orf1ab Negative
[2020-04-04] MEDS: carBAMazepine 100 mg Chewable Tablet PO SCH ×2 (11:07→16:01)
[2020-04-04] MEDS: Apixaban 2.5 MG TAB PO SCH ×2 (11:08→21:37)
[2020-04-04] MEDS: Mexiletine HCl 150 MG CAP PO SCH ×2 (11:08→21:28)
[2020-04-04] MEDS: cefTRIAXone\\ROCEPHIN 1 GM in Sodium Chloride 0.9% 100 ML IVPB SCH (15:17)
[2020-04-04] MEDS: GABAPENTIN 250 MG/5 ML PO SCH ×2 (15:34→21:28)
[2020-04-04] MEDS ORDERED: Melatonin 3 MG TAB PO SCH (21:00)
[2020-04-04] MEDS: Ondansetron PF 4 MG/2 ML Vial IVP PRN (21:16)
[2020-04-04] MEDS: Topiramate 100 MG TAB PO SCH (21:28)
[2020-04-04] MEDS: traZODone HCl 50 MG TAB PO SCH (21:30)
[2020-04-05] MEDS: Acetaminophen 325 MG TAB PO PRN ×2 (05:10→12:28)
[2020-04-05 05:29] LABS: Anion Gap 11 mmol/L (10-20); BUN (Urea Nitrogen) 25 mg/dL (9.8-20.1); Calc. Creatinine Clearance 51 mL/min (70-130); Calcium 8.3 mg/dL (7.8-10.44); Carbon Dioxide 23 mmol/L (22-29); Chloride 106 mmol/L (98-107); Estimated GFR-MDRD 42; Glucose 97 mg/dL (70-105); Potassium 3.2 mmol/L (3.5-5.1); Sodium 137 mmol/L (136-145)
[2020-04-05 05:48] LABS: Hemoglobin 8.4 g/dL (12.0-16.0); Mean Corpuscular Hemoglobin 27.3 pg (27.0-31.0); Mean Platelet Volume 9.6 fL (7.4-10.4); Platelet Count 118 thou/uL (130-400); RBC Distribution Width 14.3 % (11.5-14.5); Red Blood Cell (RBC) Count 3.08 mill/uL (4.20-5.40)
[2020-04-05] MEDS ORDERED: Levothyroxine Sodium 125 MCG TAB PO SCH (06:00)
--- NOTE | 2020-04-05 07:30 | PDOC.FM ---
- Subjective Subjective: pt resting comfortably in bed, feeling better. denies sob/cp - Objective Vital Signs & Weight: Vital Signs (12 hours) Temp Pulse Resp BP Pulse Ox 04/05/20 05:02 100.3 F H 89 18 125/70 96 Weight Weight 65.408 kg I&O: 04/04/20 04/05/20 04/06/20 06:59 06:59 06:59 Intake Total 600 720 Output Total 800 850 Balance -200 -130 Result Diagrams: 04/05/20 04:51 04/05/20 04:51 Phys Exam - Physical Examination Constitutional: NAD HEENT: moist MMs Neck: no JVD Gastrointestinal: no distention Musculoskeletal: pulses present Neurological: moves all 4 limbs Psychiatric: normal affect Skin: no rash Dx/Plan (1) Deep vein thrombosis (DVT) of popliteal vein of right lower extremity Code(s): I82.431 - ACUTE EMBOLISM AND THROMBOSIS OF RIGHT POPLITEAL VEIN Status: Acute Qualifiers: Chronicity: acute Qualified Code(s): I82.431 - Acute embolism and thrombosis of right popliteal vein (2) Hypokalemia Code(s): E87.6 - HYPOKALEMIA Status: Acute (3) Orthostatic hypotension Code(s): I95.1 - ORTHOSTATIC HYPOTENSION Status: Acute (4) Anemia Code(s): D64.9 - ANEMIA, UNSPECIFIED Status: Chronic (5) Asthma Code(s): J45.909 - UNSPECIFIED ASTHMA, UNCOMPLICATED Status: Chronic (6) Depression Code(s): F32.9 - MAJOR DEPRESSIVE DISORDER, SINGLE EPISODE, UNSPECIFIED Status : Chronic (7) Dysautonomia Code(s): G90.9 - DISORDER OF THE AUTONOMIC NERVOUS SYSTEM, UNSPECIFIED Status : Chronic (8) Foot drop, right Code(s): M21.371 - FOOT DROP, RIGHT FOOT Status: Chronic (9) Hypertension Code(s): I10 - ESSENTIAL (PRIMARY) HYPERTENSION Status: Chronic Qualifiers: Hypertension type: essential hypertension Qualified Code(s): I10 - Essential (primary) hypertension (10) Hypothyroidism Code(s): E03.9 - HYPOTHYROIDISM, UNSPECIFIED Status: Chronic - Plan Plan: Sepsis 2/2 UTI - elevated wbc, hypotense, and + UA on admission - s/p 3L in ED, oral rehydration - monitor cbc, UCx reveal E. Coli sensitive to cephalosporins - transition to kelfex cough - clear cxr, unlikely viral illness - covid neg Foot pain - xray neg RICHARD, improved - likely prerenal, renal US wnl - adequately hydrated, monitor bmp Hypokalemia - repleted in ED, monitor dysautonomia reflex sympathetic dystrophy - aware, continue home meds - most likely cause of hypotension pseudoseizures - aware, monitor HTN - aware, hold in light of htn asthma - aware, continue home meds IVC filter placement, DVT of L popliteal - continue eliquis 2.5mg hypothyroidism -aware, continue home meds depression - aware, continue home meds foot drop since suicide attempt in March 2019 - fall precautions anemia - stable, monitor hx of alcohol abuse pcp: terry code: full ppx: karissa dispo: dc on oral abx Addendum - Attending - Attending Attestation Date/Time: 04/05/20 1206 I personally evaluated the patient and discussed the management with Dr. Ramos. I agree with the History, Examination, Assessment and Plan documented above with any addition or exceptions noted below. Patient here for suspected bacteremia from E coli UTI. Her labs are improving. Blood cultures not obtained by ER and resulting negative due to antibiotics being started before obtaining. Monitor fever curve but hopeful discharge later today or tomorrow.
[2020-04-05] MEDS: DULoxetine 30 MG CAP PO SCH (07:39)
[2020-04-05] MEDS: Lisinopril 10 MG TAB PO SCH (07:40)
[2020-04-05] MEDS: Mexiletine HCl 150 MG CAP PO SCH (07:41)
[2020-04-05] MEDS: Hydrochlorothiazide 25 MG TAB PO SCH (07:41)
[2020-04-05] MEDS: Midodrine HCl 5 MG TAB PO SCH ×3 (07:42→16:52)
[2020-04-05] MEDS: GABAPENTIN 250 MG/5 ML PO SCH ×2 (07:42→15:18)
[2020-04-05] MEDS ORDERED: Potassium Chloride 20 MEQ TAB PO SCH (07:45)
[2020-04-05] MEDS: Apixaban 2.5 MG TAB PO SCH (09:28)
[2020-04-05 09:48] LABS: Band 24 % (5-11); Eosinophils 3 % (0-10); Lymphocytes 15 % (21-51); MDiff Complete? YES; Monocytes 10 % (0-10); Neutrophil 48 % (42-75); Platelet Morphology Comment Appears Decreased; RBC Morphology Normal
[2020-04-05] MEDS: cefTRIAXone\\ROCEPHIN 1 GM in Sodium Chloride 0.9% 100 ML IVPB SCH (15:17)
[2020-04-05 15:55] VITALS: BP 161/87; TEMP 97.7
[2020-04-05] MEDS ORDERED: Cefdinir 300 MG CAP PO SCH (21:00)
--- NOTE | 2020-04-06 10:56 | DIS ---
DATE OF ADMISSION: 04/03/2020 DATE OF DISCHARGE: 04/05/2020 ADMITTING ATTENDING: Acosta Crowe MD DISCHARGE ATTENDING: Yung Davis MD RESIDENTS: Quinn Ramos DO CONSULTS: None. IMAGING: Chest x-ray reveals no acute cardiopulmonary abnormality. DISCHARGE MEDICATIONS: 1. Tegretol 200 mg p.o. b.i.d. 2. Topiramate 300 mg p.o. at bedtime. 3. Protonix 40 mg p.o. q.a.m. 4. Duloxetine 30 mg p.o. b.i.d. 5. Midodrine 15 mg p.o. q.a.m. 6. Midodrine 10 mg p.o. 1700 hours. 7. Midodrine 10 mg p.o. 1200 hours. 8. Trazodone 100 mg p.o. at bedtime. 9. Melatonin 3 mg p.o. at bedtime. 10. Gabapentin 1500 mg p.o. t.i.d. 11. Hydralazine 12.5 mg p.o. daily p.r.n. 12. Synthroid 125 mcg p.o. 600 hours. 13. Mexiletine 150 mg p.o. b.i.d. 14. Lisinopril 10 mg p.o. daily. 15. Hydrochlorothiazide 25 mg p.o. daily. 16. Eliquis 2.5 mg p.o. b.i.d. 17. Tessalon 100 mg p.o. t.i.d. p.r.n. 18. Metoprolol 100 mg p.o. daily. 19. Cefdinir 300 mg p.o. b.i.d. DISCHARGE DIAGNOSIS: Sepsis secondary to urinary tract infection. SECONDARY DIAGNOSIS: 1. Cough. 2. foot pain 3. Acute kidney injury. 4. Hypokalemia. 5. Dysautonomia, reflex sympathetic dystrophy. 6. Pseudoseizures. 7. Hypertension. 8. Asthma. 9. IVC filter placement/deep venous thrombosis of left popliteal vein. 10. Hypothyroidism. 11. Depression. 12. Footdrop since suicide attempt in March 2019. 13. Anemia. 14. History of alcohol abuse. HISTORY OF PRESENT ILLNESS/HOSPITAL COURSE: Ms. Caceres is a 55-year-old female with a past medical history significant for dysautonomia, presenting with fever, chills , lower abdominal pain and pelvic pressure for three days, prior reported with fever of 102. Rocephin and azithromycin were started in ED, swab for COVID, given 3 L of normal saline. The patient admitted to medical floor for further workup and evaluation. UA was positive. The patient was continued on Rocephin. COVID returned negative. The patient continued to remain stable, spiked fevers, but vital signs normalized and were actually appropriate for the patient's dysautonomia syndrome. The patient was transitioned successfully to oral cefdinir after three doses of Rocephin. She tolerated this well and stayed stable. DISCHARGE INSTRUCTIONS: 1. Location: Home. 2. Diet: As tolerated. 3. Activity: As tolerated. 4. Followup: Follow up with PCP in the next 3 to 7 days. Job ID: [id number] [email or web address]
--- NOTE | 2020-04-07 13:02 | EKG ---
Test Reason : Blood Pressure : / mmHG Vent. Rate : 083 BPM Atrial Rate : 083 BPM P-R Int : 142 ms QRS Dur : 094 ms QT Int : 366 ms P-R-T Axes : 052 -05 -02 degrees QTc Int : 430 ms Normal sinus rhythm Nonspecific T wave abnormality Abnormal ECG Baseline Artifact Present Confirmed by YAHIR PAVON DO ([id number]), communications editor MADI CABA ([id number]) on 04/07/2020 1:01:32 PM Referred By: Confirmed By:YAHIR PAVON DO
== END 2020-04-05 17:23 | disposition home or self-care (01) | DRG 872 ==
LOC: ERS 13:14 → ERHOLD 15:31 → 2SW 18:07
PROVIDERS: ADMIT Student in an Organized Health Care Education/Training Program; ATTEND Student in an Organized Health Care Education/Training Program
DX: A41.51 Sepsis due to Escherichia coli [E. coli] (principal); I82.431 Acute embolism and thrombosis of right popliteal vein; N39.0 Urinary tract infection, site not specified; N17.9 Acute kidney failure, unspecified; G90.50 Complex regional pain syndrome I, unspecified; Z20.828 Contact with and (suspected) exposure to other viral communicable diseases; F32.9 Major depressive disorder, single episode, unspecified; J45.909 Unspecified asthma, uncomplicated; I10 Essential (primary) hypertension; E03.9 Hypothyroidism, unspecified; E87.6 Hypokalemia; I95.1 Orthostatic hypotension; D64.9 Anemia, unspecified; F10.11 Alcohol abuse, in remission; R05 Cough; G90.9 Disorder of the autonomic nervous system, unspecified; G90.1 Familial dysautonomia [Riley-Day]; M21.371 Foot drop, right foot; Z88.5 Allergy status to narcotic agent; Z88.7 Allergy status to serum and vaccine; Z90.710 Acquired absence of both cervix and uterus; Z98.84 Bariatric surgery status; Z90.49 Acquired absence of other specified parts of digestive tract; Z98.1 Arthrodesis status
CPT/HCPCS: 36415; 71045; 76770; 80048; 80053; 81003; 81015; 83605; 84145; 84484; 85025; 87040; 87077; 87086; 87186; 87635; 93005; 96361; 96365; 96367; J0456; J0696; J2405; J3490; U0003

== ENCOUNTER 2020-06-25 08:15 | Outpatient (CLI) | payer OTHER ==
--- NOTE | 2020-06-25 16:21 | RAD ---
Lumbar spine: 3 views lateral views were obtained with flexion and extension INDICATIONS:Lumbar radiculopathy. Back pain. COMPARISON:None FINDINGS: Postoperative changes are noted. Pedicle screws transfix L5-S1 with interbody implant. Disc spaces ab ove L5 are maintained. Vertebral bodies maintain height and alignment. Mild degenerative spurring. Mild facet hypertrophy. IMPRESSION: Postoperative and degenerative changes.
--- NOTE | 2020-06-25 16:23 | RAD ---
CERVICAL SPINE: 3 views Lateral views obtained with neutral flexion and extension INDICATIONS:Cervical radiculopathy. Neck pain COMPARISON:None FINDINGS: Cervical vertebra maintain normal height and alignment Loss of disc space at C5-6 and C6-7. Mild anterior osteophytes and posterior spondylosis at these lev els. Posterior listhesis is noted at C5-6 with extension. No soft tissue abnormality identified. IMPRESSION: Degenerative changes at C5-6 and C6-7.
--- NOTE | 2020-06-25 16:30 | MRI ---
MRI LUMBAR SPINE WITH AND WITHOUT CONTRAST: DATE: 06/25/2020 HISTORY: 55-year-old female with lumbar radiculopathy COMPARISON: 04/19/2019 TECHNIQUE: Multiple sequences obtained in axial and sagittal planes, pre and post IV injection of gadolinium-bas ed contrast agent. FINDINGS: There is a transitional level at the lumbosacral junction. The numbering of the levels will be differ ent on the current MRI than for the report of 04/19/2019, after review of CT angiogram of the chest of 02/04/2020 and abdominal radiograph of 02/27/2020, which reveal 12 pair fully formed ribs, followed b y 6 nonrib-bearing lumbar-type vertebrae. Therefore, for the purposes of this report, the transitional level at the lumbosacral junction will be designated as L6 (rather than L5 as on the kartik or lumbar spine MRI report.). The bilateral pedicle screws are therefore considered to be at L5 and L6 (rather than at L4 and L5 as on the previous MRI report). There is complete fusion of the dysplast ic left L6 transverse process with the left sacral ala, but not that of the right (LSTV type IIIa). The vertebral body heights are maintained. Moderate disc space narrowing at L5-6 with Modic type II endplate marrow changes. Hypoplastic L6-S1 intervertebral disc space. No spondylolisthesis. No high-grade scoliosis.. Conus medullaris terminates at L2. T12-L1:Imaged only on sagittal sequences. Normal. L1-2:Shallow, tiny right-central disc protrusion. Otherwise normal. No central or neural foraminal st enosis. L2-3:Normal L3-4:Mild bilateral degenerative facet changes. Mild to moderate bilateral neural foraminal stenosis. Mild disc bulge. No central stenosis. L4-5:Mild disc bulge. No central spinal canal stenosis. Moderate bilateral neural foraminal stenosis. Moderate bilateral facet DJD. No interval change.. L5-L6:Generous caliber of spinal canal and thecal sac due to laminectomy. Moderate bilateral neural f oraminal stenosis. No interval change. L6-S1: Hypoplastic bilateral facet joints. No central or neural foraminal stenosis. No interval casey e. IMPRESSION: 1) transitional level at lumbosacral junction, designated as L6: This is different from the designati on of levels used on the report of 04/19/2019. Lumbosacral transitional vertebra type IIIa involving L6. 2.) Bilateral pedicle screws at L5 and L6. Status post laminectomy at L5-6. 3) moderate bilateral neural foraminal stenosis at L4-5 and L5 6, and to a lesser degree the L3-4. 4) no central spinal canal stenosis at any level. 5) no significant interval change since 04/19/2019.
--- NOTE | 2020-06-25 16:31 | MRI ---
EXAM: CERVICAL SPINE MRI WITHOUT IV CONTRAST: History: Cervical radiculopathy, injury from a fall three weeks ago with neck pain, now with right upper extre mity radiculopathy. Comparison: Cervical spine CT scan without IV contrast, 03-01-19. CT angiogram chest 02-04-2020. FINDINGS: Visualized lower brain appears unremarkable. No evidence for neck soft tissue mass. No evidence for a cute abnormal marrow edema. Disc osteophytosis changes are noted as well as generalized disc desiccat ion changes of ligaments and facet hypertrophy changes. C2-3: Unremarkable. C3-4: Mild central protrusion with some thecal sac ventral indention without cord compression or fora angelica stenosis. C4-5: Small central disc osteophyte with minimal indention of the ventral thecal sac without overt co rd compression. C5-6: Disc osteophyte with some primarily left paracentral canal stenosis and some left paracentral c ord compression with mild right foraminal stenosis and moderate left foraminal stenosis. C6-7: Prominent central disc osteophyte with central canal stenosis and some generalized ventral cord compression and moderate bilateral recess and bilateral foraminal stenosis, worse on the right side. C7-T1: Unremarkable. IMPRESSION: Marked disc osteophytosis at C5-6 and C6-7 with central canal, lateral recess, and foraminal stenosis with cord compression as above. POS: OFF
== END 2020-06-25 08:16 | disposition home or self-care (01) ==
LOC: TBSIIMAG 08:15 → SCSMRI 08:16
PROVIDERS: ATTEND Neurological Surgery
DX: M54.12 Radiculopathy, cervical region (principal); M54.16 Radiculopathy, lumbar region; M47.812 Spondylosis without myelopathy or radiculopathy, cervical region; M47.816 Spondylosis without myelopathy or radiculopathy, lumbar region; M25.78 Osteophyte, vertebrae; M48.02 Spinal stenosis, cervical region; M48.061 Spinal stenosis, lumbar region without neurogenic claudication; Z98.890 Other specified postprocedural states
CPT/HCPCS: 72040; 72100; 72141; 72158

== ENCOUNTER 2020-07-13 07:45 | Outpatient (CLI) | payer OTHER ==
[2020-07-13 14:15] LABS: PTT 28.4 sec (22.9-36.1); Prothrombin Time 12.9 sec (12.0-14.7)
[2020-07-13 14:16] LABS: Hemoglobin 10.6 g/dL (12.0-16.0); Mean Corpuscular HGB CONC 32.1 g/dL (32.0-36.0); Mean Corpuscular Hemoglobin 26.7 pg (27.0-31.0); Mean Corpuscular Volume 83.3 fL (78.0-98.0); Platelet Count 216 thou/uL (130-400); RBC Distribution Width 15.5 % (11.5-14.5); Red Blood Cell (RBC) Count 3.97 mill/uL (4.20-5.40)
[2020-07-14 14:04] LABS: SARS-CoV-2 MS2 Positive; SARS-CoV-2 N Gene Negative; SARS-CoV-2 S Gene Negative; SARS-CoV-2 by NAA Not Detected (NotDetected); SARS-CoV-2 orf1ab Negative
== END 2020-07-13 07:46 | disposition home or self-care (01) ==
LOC: LABBT 07:45
PROVIDERS: ATTEND Neurological Surgery
DX: Z01.812 Encounter for preprocedural laboratory examination (principal); Z20.828 Contact with and (suspected) exposure to other viral communicable diseases; M50.00 Cervical disc disorder with myelopathy, unspecified cervical region
CPT/HCPCS: 85027; 85610; 85730; 87635; U0003

== ENCOUNTER 2020-07-25 10:17 | Outpatient (CLI) | payer OTHER ==
--- NOTE | 2020-07-25 13:16 | RAD ---
LUMBAR SPINE 4 VIEWS INCLUDING FLEXION AND EXTENSION LATERAL VIEWS: COMPARISON: 06/25/2020. FINDINGS: Pedicle screws transfix the L5-S1 level with intradiskal prosthesis. IVC filter noted in place. Mil d compression/burst fracture involving the upper aspect of L1 which appears to be new when compared t o the 06/25/2020 study. No abnormal translation between flexion and extension. IMPRESSION: Mild vertical height loss with associated burst-mild compression fracture of L1. No abnormal transla tion between flexion and extension. Postop fixation changes at L5-S1. POS: RRE
== END 2020-07-25 10:18 | disposition home or self-care (01) ==
LOC: SCSRAD 10:17
PROVIDERS: ATTEND Neurological Surgery
DX: S32.011D Stable burst fracture of first lumbar vertebra, subsequent encounter for fracture with routine healing (principal); Z98.890 Other specified postprocedural states
CPT/HCPCS: 72120

== ENCOUNTER 2020-08-09 11:34 | Outpatient (CLI) | payer OTHER ==
--- NOTE | 2020-08-09 12:22 | RAD ---
XR Cerv Sp Ap Lat STANDARD History: Cervical spine pain. Comparison: Radiograph June 25, 2020 Findings: New C5-C7 ACDF hardware with discectomy change. No migration of the disc cages. Mild narrowing of the C4/C5 and C7/T1 disc spaces. Impression: Satisfactory postoperative appearance without complication.
--- NOTE | 2020-08-09 12:25 | RAD ---
XR Thoracic Spine 3 V STANDARD History: Fall. Pain Comparison: Radiograph November 28, 2019 Findings: No acute fracture or malalignment. Low-grade dextro scoliosis of the thoracic spine. Mild d isc space narrowing at T8/T9. Right upper quadrant surgical clips. Posterior ribs are intact. Impression: Low-grade midthoracic spine spondylosis. No acute osseous abnormality.
== END 2020-08-09 11:35 | disposition home or self-care (01) ==
LOC: SCSRAD 11:34
PROVIDERS: ATTEND Neurological Surgery
DX: M50.00 Cervical disc disorder with myelopathy, unspecified cervical region (principal); M54.6 Pain in thoracic spine; M47.814 Spondylosis without myelopathy or radiculopathy, thoracic region; Z98.1 Arthrodesis status
CPT/HCPCS: 72040; 72072

== ENCOUNTER 2020-08-24 12:54 | Outpatient (CLI) | payer OTHER ==
--- NOTE | 2020-08-27 12:21 | RAD ---
EXAM: XR Ba Swallow W/Speech Therap PROVIDED CLINICAL HISTORY: Dysphagia, unspecified. Feeding difficulties. COMPARISON: None FINDINGS: This examination was performed by speech pathology, and a video is available for evaluation. Patient was administered varying consistencies of barium during the exam. Provided images demonstrate premature spill of contrast into the vallecula and piriform sinuses prior to initiation of the swallo wing mechanism. No aspiration or penetration is noted on this examination. There is partial visualization of postoperative changes related to anterior cervical fusion at the C5-6 and C6-7 level s. Fluoroscopy: Time-8.2 seconds Dose-15.61 mGy IMPRESSION: Provided images do not demonstrate evidence of penetration or aspiration. There was reportedly a sukhwinder r outage, and a portion of the study was not able to be saved for review.
== END 2020-08-24 12:55 | disposition home or self-care (01) ==
PROVIDERS: ATTEND Neurological Surgery
DX: R13.10 Dysphagia, unspecified (principal); M50.00 Cervical disc disorder with myelopathy, unspecified cervical region; M50.022 Cervical disc disorder at C5-C6 level with myelopathy; M50.023 Cervical disc disorder at C6-C7 level with myelopathy; R33.9 Retention of urine, unspecified
CPT/HCPCS: 74230

== ENCOUNTER 2020-11-20 16:37 | Emergency (ER) | payer OTHER ==
--- NOTE | 2020-11-20 18:55 | RAD ---
RIGHT ANKLE RADIOGRAPHS THREE VIEWS: 11/20/20 PROVIDED CLINICAL HISTORY: Trauma. FINDINGS: Comparison 09/20/19. There is no evidence for fracture or other acute osseous abnormality. If There is persistent clinical concern, conservative management and follow-up imaging are advised. IMPRESSION: As above. POS: MORENITA
--- NOTE | 2020-11-20 18:57 | RAD ---
RIGHT FOOT RADIOGRAPHS THREE VIEWS: 11/20/20 PROVIDED CLINICAL HISTORY: Trauma. COMPARISON: 04/04/20. There is no evidence for fracture or other acute osseous abnormality. If there is persistent clinical concern, conservative management and follow-up imaging are advised. IMPRESSION: As above. POS: MORENITA
[2020-11-20 19:23] LABS: #Eosinphils 0.1 thou/uL (0.0-0.7); #Lymphocytes 1.7 thou/uL (1.20-3.40); #Monocytes 0.4 thou/uL (0.11-0.59); %Basophils 0.5 % (0.0-1.0); %Eosinophils 1.9 % (0.0-10.0); %Monocytes 8.1 % (0.0-10.0); %Neutrophils 57.5 % (42.0-75.0); Hemoglobin 10.3 g/dL (12.0-16.0); Mean Corpuscular HGB CONC 31.3 g/dL (32.0-36.0); Mean Corpuscular Hemoglobin 24.5 pg (27.0-31.0); Mean Corpuscular Volume 78.5 fL (78.0-98.0); Mean Platelet Volume 10.3 fL (7.4-10.4); Platelet Count 202 thou/uL (130-400); RBC Distribution Width 17.2 % (11.5-14.5); Red Blood Cell (RBC) Count 4.19 mill/uL (4.20-5.40); White Blood Cell (WBC) Count 5.2 thou/uL (4.8-10.8)
[2020-11-20 19:42] LABS: Anion Gap 12 mmol/L (10-20); BUN (Urea Nitrogen) 13 mg/dL (9.8-20.1); Calc. Creatinine Clearance 0 mL/min (70-130); Calcium 8.7 mg/dL (7.8-10.44); Carbon Dioxide 23 mmol/L (22-29); Chloride 106 mmol/L (98-107); Glucose 82 mg/dL (70-105); Sodium 137 mmol/L (136-145)
[2020-11-20 19:43] LABS: INR-International Normal Ratio 1.1; PTT 31.4 sec (22.9-36.1); Prothrombin Time 14.6 sec (12.0-14.7)
[2020-11-20] MEDS ORDERED: Gabapentin 400 MG CAP PO SCH (19:45)
--- NOTE | 2020-11-20 19:46 | CT ---
CT FACIAL BONES: 11/20/20 PROVIDED CLINICAL HISTORY: Trauma. There is no evidence for fracture. The globes and other orbital contents appear normal. The paranasal sinuses are free of significant opacity. IMPRESSION: No evidence for fracture. POS: MORENITA
--- NOTE | 2020-11-20 20:08 | CT ---
HEAD CT WITHOUT CONTRAST: 11/20/20 COMPARISON: None. HISTORY: Head trauma, fall, pain. TECHNIQUE: Axial CT imaging at 5 mm intervals from vertex through skull base without contrast. FINDINGS: The visualized paranasal sinuses/mastoid air cells are well aerated. There is no displaced calvarial fracture. No intracranial hemorrhage, midline shift, mass effect or ventricular enlargement. IMPRESSION: No intracranial hemorrhage or displaced calvarial fracture. POS: ED
== END 2020-11-20 21:07 | disposition home or self-care (01) ==
LOC: ERS 16:37
DX: S06.9X9A Unspecified intracranial injury with loss of consciousness of unspecified duration, initial encounter (principal); S93.401A Sprain of unspecified ligament of right ankle, initial encounter; I10 Essential (primary) hypertension; E03.9 Hypothyroidism, unspecified; Z79.899 Other long term (current) drug therapy; W18.2XXA Fall in (into) shower or empty bathtub, initial encounter
CPT/HCPCS: 36415; 70450; 70486; 80048; 85025; 85610; 85730; 94760

== ENCOUNTER 2020-11-26 12:31 | Outpatient (CLI) | payer OTHER ==
--- NOTE | 2020-11-26 13:35 | MRI ---
EXAM: MRI right shoulder PROVIDED CLINICAL HISTORY: Pain COMPARISON: None FINDINGS: There is low-grade bursal surface tearing involving the distal conjoined tendon at the footplate. The re is a small focus of low-grade partial thickness undersurface tearing involving the anterior distal supraspinatus tendon just proximal to the footplate. The components of the rotator cuff appear otherwise intact. The long head biceps tendon appears intact and normally located. The amount of fluid within the glenohumeral joint appears physiologic. The glenoid labrum and glenohu meral articular cartilage are suboptimally evaluated in the absence of joint distention, but appear grossly normal. Minimal acromioclavicular joint osteoarthrosis. Rotator cuff muscular volume appears preserved. No fo gregorio concerning regional marrow or muscular signal abnormality is evident. There is greater than physiologic subacromial subdeltoid bursal fluid. IMPRESSION: 1. Low-grade partial thickness bursal surface tearing involving the distal conjoined tendon at the fo otplate, and a small low-grade partial thickness undersurface tear involving the anterior distal supraspinatus tendon. 2. Greater than physiologic subacromial subdeltoid bursal fluid, which may reflect mild bursitis.
== END 2020-11-26 12:32 | disposition home or self-care (01) ==
LOC: TBSIIMAG 12:31
PROVIDERS: ATTEND Orthopaedic Surgery
DX: M25.511 Pain in right shoulder (principal); M71.811 Other specified bursopathies, right shoulder; M75.111 Incomplete rotator cuff tear or rupture of right shoulder, not specified as traumatic; S46.811A Strain of other muscles, fascia and tendons at shoulder and upper arm level, right arm, initial encounter

== ENCOUNTER 2021-04-01 15:14 | Outpatient (CLI) | payer OTHER ==
[2021-04-02 01:32] LABS: SARS-CoV-2 PCR by NAA Not Detected (NotDetected)
== END 2021-04-01 15:15 | disposition home or self-care (01) ==
LOC: LABBT 15:14
PROVIDERS: ATTEND Specialist
DX: Z01.812 Encounter for preprocedural laboratory examination (principal); G57.71 Causalgia of right lower limb; G89.4 Chronic pain syndrome; Z20.822 Contact with and (suspected) exposure to COVID-19
CPT/HCPCS: 87635; U0003; U0005

== ENCOUNTER 2021-04-04 10:23 | Day surgery (SDC) | payer OTHER ==
[2021-04-03 10:57] VITALS: BMI 23.3
[2021-04-04] MEDS ORDERED: EPINEPHrine 1 MG/ML AMP ONE (11:47)
[2021-04-04] MEDS ORDERED: Bupivacaine PF 0.5% 30 ML VIAL ONE (11:47)
[2021-04-04] MEDS ORDERED: CEFAZOLIN 1 GM VIAL ONE (12:22)
[2021-04-04] MEDS ORDERED: Sodium Chloride 0.9% 100 ML ONE (12:22)
[2021-04-04] MEDS ORDERED: Fentanyl 100 MCG/2 ML VIAL ONE (12:42)
[2021-04-04] MEDS ORDERED: Midazolam HCl 2 mg/2 ml Vial ONE (12:42)
[2021-04-04] MEDS ORDERED: PROPOFOL 200 MG/20 ML VIAL ONE (12:51)
[2021-04-04] MEDS ORDERED: Lidocaine 1% PF 5 ML VIAL ONE (12:51)
[2021-04-04] MEDS ORDERED: Ondansetron PF 4 MG/2 ML Vial ONE (12:51)
== END 2021-04-04 15:08 | disposition home or self-care (01) ==
LOC: SDC 10:23
PROVIDERS: ATTEND Specialist
PROC: 00HU3MZ Insertion of Neurostimulator Lead into Spinal Canal, Percutaneous Approach (ICD-10-PCS; principal; 2021-04-04)
PROC: 0JH70BZ Insertion of Single Array Stimulator Generator into Back Subcutaneous Tissue and Fascia, Open Approach (ICD-10-PCS; principal; 2021-04-04)
DX: G89.4 Chronic pain syndrome (principal); M96.1 Postlaminectomy syndrome, not elsewhere classified; M54.16 Radiculopathy, lumbar region; I10 Essential (primary) hypertension; J42 Unspecified chronic bronchitis; Z79.01 Long term (current) use of anticoagulants; Z79.899 Other long term (current) drug therapy; Z88.1 Allergy status to other antibiotic agents; Z88.5 Allergy status to narcotic agent; Z88.7 Allergy status to serum and vaccine; Z88.8 Allergy status to other drugs, medicaments and biological substances
CPT/HCPCS: 72020; 76000; C1778; C1787; J0171; J0690; J2250; J2405; J2704; J3010; J3490; L8687; L8689; S0020

== ENCOUNTER 2021-11-23 12:23 | Observation (INO) | payer MEDICARE, OTHER ==
[2021-11-23 13:16] LABS: ALT (SGPT) 11 U/L (8-55); AST (SGOT) 18 U/L (5-34); Albumin 3.4 g/dL (3.5-5.0); Alkaline Phosphatase 57 U/L (40-110); Anion Gap 12 mmol/L (10-20); BUN (Urea Nitrogen) 16 mg/dL (9.8-20.1); Bilirubin, Total 0.2 mg/dL (0.2-1.2); Calc. Creatinine Clearance 0 mL/min (70-130); Calcium 9.6 mg/dL (7.8-10.44); Carbon Dioxide 21 mmol/L (22-29); Chloride 109 mmol/L (98-107); Globulin 2.8 g/dL (2.4-3.5); Glucose 107 mg/dL (70-105); Potassium 4.1 mmol/L (3.5-5.1); Protein, Total 6.2 g/dL (6.0-8.3); Sodium 138 mmol/L (136-145)
[2021-11-23 13:22] LABS: Prothrombin Time 13.4 sec (12.0-14.7)
[2021-11-23 13:23] LABS: PTT 45.7 sec (22.9-36.1)
[2021-11-23 13:30] LABS: Hemoglobin 9.9 g/dL (12.0-16.0); Mean Corpuscular HGB CONC 31.5 g/dL (32.0-36.0); Mean Corpuscular Hemoglobin 22.4 pg (27.0-31.0); Mean Corpuscular Volume 71.2 fL (78.0-98.0); Platelet Count 174 thou/uL (130-400); RBC Distribution Width 18.6 % (11.5-14.5); White Blood Cell (WBC) Count 3.4 thou/uL (4.8-10.8)
[2021-11-23 13:42] LABS: #Eosinphils 0.1 thou/uL (0.0-0.7); #Lymphocytes 1.5 thou/uL (1.20-3.40); #Monocytes 0.3 thou/uL (0.11-0.59); #Neutrophils 1.6 thou/uL (1.40-6.50); %Eosinophils 2.4 % (0.0-10.0); %Lymphocytes 42.5 % (21.0-51.0); %Monocytes 8.6 % (0.0-10.0); %Neutrophils 45.5 % (42.0-75.0)
[2021-11-23 13:48] LABS: Anisocytosis SLIGHT = 6-15 cells (100X) (0-5/hpf); Hypochromia SLIGHT = 6-15 cells (100X) (0-5/hpf); MDiff Complete? YES; Microcytosis SLIGHT = 6-15 cells (100X) (0-5/hpf); Platelet Morphology Comment Appears Adequate; Polychromasia SLIGHT = 2-3 cells (100X) (0-2/hpf)
[2021-11-23] MEDS ORDERED: Aspirin Chewable 81 MG TAB ONE (13:54)
[2021-11-23] MEDS ORDERED: Metoclopramide HCl 10 MG/2 ML VIAL ONE (15:14)
[2021-11-23] MEDS ORDERED: diphenhydrAMINE 50 MG/ML VIAL ONE (15:14)
[2021-11-23] MEDS ORDERED: Acetaminophen 500 MG TAB ONE (15:14)
[2021-11-23] MEDS ORDERED: hydrALAZINE 20 MG/ML VIAL SLOW IVP PRN (15:22)
[2021-11-23] MEDS ORDERED: Aspirin 81 mg Enteric Coated Tablet PO SCH (15:45)
[2021-11-23] MEDS ORDERED: Acetaminophen 325 MG TAB PO PRN (16:24)
[2021-11-23] MEDS ORDERED: Ondansetron ODT 4 MG TAB PO PRN (16:24)
[2021-11-23] MEDS ORDERED: Ondansetron PF 4 MG/2 ML Vial IVP PRN (16:24)
[2021-11-23] MEDS ORDERED: Acetaminophen 650 MG Suppository PR PRN (16:24)
[2021-11-23] MEDS ORDERED: Ketorolac Tromethamine 10 MG TAB PO SCH ×2 (16:45→17:30)
[2021-11-23] MEDS ORDERED: Melatonin 3 MG TAB PO PRN (19:37)
[2021-11-23] MEDS ORDERED: traZODone HCl 50 MG TAB PO PRN (19:40)
[2021-11-23] MEDS ORDERED: Albuterol Sulfate 2.5 mg/3 ml Neb NEB PRN (19:50)
[2021-11-23 20:46] VITALS: BMI 26.2
[2021-11-23] MEDS ORDERED: Topiramate 100 MG TAB PO SCH (21:00)
[2021-11-23] MEDS ORDERED: Midodrine HCl 5 MG TAB PO SCH (21:00)
[2021-11-23] MEDS ORDERED: Atorvastatin Calcium 40 MG TAB PO SCH (21:00)
[2021-11-23] MEDS: Apixaban 2.5 MG TAB PO SCH (21:06)
[2021-11-23] MEDS: Metoprolol Tartrate 100 MG TAB PO SCH (21:08)
[2021-11-23] MEDS ORDERED: Prochlorperazine Edisylate 10 MG in Sodium Chloride 0.9% 50 ML IVPB SCH (21:45)
[2021-11-24] MEDS ORDERED: Levothyroxine Sodium 100 MCG TAB PO SCH (06:00)
[2021-11-24] MEDS ORDERED: Mometasone 200 MCG/Formoterol 5 MCG 120 PUFF INHALER INH SCH (06:30)
[2021-11-24 06:41] LABS: Hemoglobin 9.2 g/dL (12.0-16.0); Mean Corpuscular HGB CONC 30.9 g/dL (32.0-36.0); Mean Corpuscular Hemoglobin 21.9 pg (27.0-31.0); Mean Platelet Volume 6.6 fL (7.4-10.4); Platelet Count 122 thou/uL (130-400); RBC Distribution Width 18.3 % (11.5-14.5); Red Blood Cell (RBC) Count 4.19 mill/uL (4.20-5.40); White Blood Cell (WBC) Count 3.2 thou/uL (4.8-10.8)
[2021-11-24 06:46] LABS: INR-International Normal Ratio 1.1; PTT 29.8 sec (22.9-36.1)
[2021-11-24 06:58] LABS: Cardiac Risk 5.5 (Less than 4.5)
[2021-11-24 07:04] LABS: Eosinophils 7 % (0-10); Hypochromia SLIGHT = 6-15 cells (100X) (0-5/hpf); Lymphocytes 47 % (21-51); MDiff Complete? YES; Microcytosis SLIGHT = 6-15 cells (100X) (0-5/hpf); Monocytes 7 % (0-10); Neutrophil 37 % (42-75); Reactive Lymphocytes 2 % (0-10)
[2021-11-24] MEDS: Metoprolol Tartrate 100 MG TAB PO SCH (08:34)
[2021-11-24] MEDS: Apixaban 2.5 MG TAB PO SCH (08:35)
[2021-11-24] MEDS ORDERED: Midodrine HCl 5 MG TAB PO SCH ×2 (09:00→12:00)
[2021-11-24] MEDS ORDERED: Cholecalciferol 1,000 UNITS (25 MCG) TAB PO SCH (09:00)
[2021-11-24] MEDS ORDERED: Aspirin 325 mg Enteric Coated Tablet PO SCH (09:00)
[2021-11-24] MEDS ORDERED: Escitalopram Oxalate 10 mg Tablet PO SCH (09:00)
[2021-11-24] MEDS ORDERED: Hydrochlorothiazide 25 MG TAB PO SCH (09:00)
[2021-11-24] MEDS ORDERED: Lisinopril 10 MG TAB PO SCH (09:00)
[2021-11-24] MEDS ORDERED: diphenhydrAMINE 12.5 MG/5 ML UDCUP PO SCH (09:15)
[2021-11-24 12:19] VITALS: BP 136/81; TEMP 98.1
[2021-11-24 12:21] LABS: SARS-CoV-2 PCR by NAA Not Detected (NotDetected)
[2021-11-24] MEDS ORDERED: Mexiletine Hcl 150 MG PO SCH (21:00)
[2021-11-24] MEDS ORDERED: GABAPENTIN 250 MG/5 ML PO SCH (21:00)
== END 2021-11-24 16:28 | disposition home or self-care (01) ==
LOC: ERS 12:23 → NEURO 13:44
PROVIDERS: ADMIT Family Medicine; ATTEND Family Medicine
DX: R53.1 Weakness (principal); G43.109 Migraine with aura, not intractable, without status migrainosus; G90.1 Familial dysautonomia [Riley-Day]; E03.9 Hypothyroidism, unspecified; J45.909 Unspecified asthma, uncomplicated; I48.0 Paroxysmal atrial fibrillation; D50.9 Iron deficiency anemia, unspecified; R79.1 Abnormal coagulation profile; I10 Essential (primary) hypertension; Z20.822 Contact with and (suspected) exposure to COVID-19; Z79.890 Hormone replacement therapy; Z79.899 Other long term (current) drug therapy; Z88.1 Allergy status to other antibiotic agents; Z88.5 Allergy status to narcotic agent; Z88.7 Allergy status to serum and vaccine; Z86.711 Personal history of pulmonary embolism; Z86.718 Personal history of other venous thrombosis and embolism; Z91.51 Personal history of suicidal behavior
CPT/HCPCS: 70450; 70496; 70498; 70551; 80053; 80061; 84443; 84484; 85025 ×2; 85610 ×2; 85730 ×2; 93005; 96374; 96375 ×2; 99285; G0378 ×3; U0003; U0005; 36415; J0780; J1200; J2765; Q0163

== ENCOUNTER 2021-12-02 14:58 | Emergency (ER) | payer MEDICARE, OTHER ==
[2021-12-02 17:02] LABS: #Eosinphils 0.1 thou/uL (0.0-0.7); #Lymphocytes 1.8 thou/uL (1.20-3.40); #Monocytes 0.3 thou/uL (0.11-0.59); #Neutrophils 1.4 thou/uL (1.40-6.50); %Basophils 1.1 % (0.0-1.0); %Eosinophils 1.6 % (0.0-10.0); %Lymphocytes 49.3 % (21.0-51.0); %Monocytes 8.3 % (0.0-10.0); %Neutrophils 39.7 % (42.0-75.0); Hemoglobin 10.1 g/dL (12.0-16.0); Mean Corpuscular HGB CONC 31.9 g/dL (32.0-36.0); Mean Corpuscular Hemoglobin 22.4 pg (27.0-31.0); Mean Corpuscular Volume 70.1 fL (78.0-98.0); Mean Platelet Volume 5.9 fL (7.4-10.4); Platelet Count 203 thou/uL (130-400); RBC Distribution Width 19.5 % (11.5-14.5); Red Blood Cell (RBC) Count 4.51 mill/uL (4.20-5.40); White Blood Cell (WBC) Count 3.6 thou/uL (4.8-10.8)
[2021-12-02] MEDS ORDERED: Ondansetron PF 4 MG/2 ML Vial ONE (17:27)
[2021-12-02] MEDS ORDERED: Ketorolac Tromethamine 30 MG/ML VIAL ONE (17:27)
[2021-12-02 17:33] LABS: ALT (SGPT) 15 U/L (8-55); AST (SGOT) 21 U/L (5-34); Albumin 3.8 g/dL (3.5-5.0); Alkaline Phosphatase 60 U/L (40-110); Anion Gap 13 mmol/L (10-20); BUN (Urea Nitrogen) 17 mg/dL (9.8-20.1); Bilirubin, Total 0.2 mg/dL (0.2-1.2); Calc. Creatinine Clearance 0 mL/min (70-130); Calcium 8.8 mg/dL (7.8-10.44); Carbon Dioxide 18 mmol/L (22-29); Chloride 115 mmol/L (98-107); Globulin 3.2 g/dL (2.4-3.5); Glucose 100 mg/dL (70-105); Potassium 3.9 mmol/L (3.5-5.1); Sodium 142 mmol/L (136-145)
== END 2021-12-02 18:21 | disposition home or self-care (01) ==
LOC: ERS 14:58
DX: U07.1 COVID-19 (principal); H66.91 Otitis media, unspecified, right ear; E03.9 Hypothyroidism, unspecified; Z86.718 Personal history of other venous thrombosis and embolism; I10 Essential (primary) hypertension; Z86.711 Personal history of pulmonary embolism; G43.909 Migraine, unspecified, not intractable, without status migrainosus; J45.909 Unspecified asthma, uncomplicated; Z79.899 Other long term (current) drug therapy; Z79.01 Long term (current) use of anticoagulants
CPT/HCPCS: 36415; 70450; 71045; 80053; 83880; 84484; 85025; 93005; 96374; 96375; J1885; J2405

== ENCOUNTER 2022-05-30 12:32 | Outpatient (CLI) | payer MEDICARE, OTHER | END 2022-05-30 12:33 | disposition home or self-care (01) | LOC: BICMAMMO 12:32 | PROVIDERS: ATTEND Student in an Organized Health Care Education/Training Program | DX: Z12.31 Encounter for screening mammogram for malignant neoplasm of breast (principal); Z80.3 Family history of malignant neoplasm of breast; Z98.890 Other specified postprocedural states | CPT/HCPCS: 77063; 77067 ==

== ENCOUNTER 2022-06-02 12:02 | Outpatient (CLI) | payer OTHER | END 2022-06-02 12:03 | disposition home or self-care (01) | LOC: BICMRI 12:02 | PROVIDERS: ATTEND Family Medicine | DX: Z47.89 Encounter for other orthopedic aftercare (principal); M48.02 Spinal stenosis, cervical region; M47.812 Spondylosis without myelopathy or radiculopathy, cervical region; Z98.1 Arthrodesis status | CPT/HCPCS: 72141 ==

== ENCOUNTER 2022-11-26 10:45 | Outpatient (CLI) | payer OTHER | END 2022-11-26 10:46 | disposition home or self-care (01) | LOC: CT 10:45 | PROVIDERS: ATTEND Psychiatry & Neurology Neurology | DX: G45.9 Transient cerebral ischemic attack, unspecified (principal) | CPT/HCPCS: 70496; 70498; 70551; Q9967 ==

== ENCOUNTER 2022-11-27 13:53 | Inpatient (IN) | payer OTHER ==
[2022-11-27] MEDS ORDERED: Iopamidol-370 76% 500 ML 1 ML ONE (14:16)
[2022-11-27 14:26] LABS: Hemoglobin 14.7 g/dL (12.0-16.0); Mean Corpuscular HGB CONC 33.7 g/dL (32.0-36.0); Mean Corpuscular Hemoglobin 32.8 pg (27.0-31.0); Mean Corpuscular Volume 97.3 fl (78.0-98.0); Platelet Count 165 10x3/uL (130-400); RBC Distribution Width 12.7 % (11.5-14.5); Red Blood Cell (RBC) Count 4.48 mill/uL (4.20-5.40); White Blood Cell (WBC) Count 4.1 10x3/uL (4.8-10.8)
[2022-11-27 14:35] LABS: INR-International Normal Ratio 1.2; PTT 31.1 sec (22.9-36.1); Prothrombin Time 15.5 sec (12.0-14.7)
[2022-11-27 14:47] LABS: ALT (SGPT) 18 U/L (8-55); AST (SGOT) 32 U/L (5-34); Albumin 4.4 g/dL (3.5-5.0); Alkaline Phosphatase 59 U/L (40-110); Anion Gap 18 mmol/L (10-20); BUN (Urea Nitrogen) 32 mg/dL (9.8-20.1); Bilirubin, Total Less than 0.2 mg/dL (0.2-1.2); CK (CPK) 59 U/L (29-168); Calc. Creatinine Clearance 0 mL/min (70-130); Carbon Dioxide 17 mmol/L (22-29); Chloride 108 mmol/L (98-107); Estimated GFR 44; Globulin 2.7 g/dL (2.4-3.5); Glucose 84 mg/dL (70-105); Lipase 11 U/L (8-78); Potassium 5.2 mmol/L (3.5-5.1); Protein, Total 7.1 g/dL (6.0-8.3); Sodium 138 mmol/L (136-145)
[2022-11-27 14:52] LABS: Acetaminophen Less than 10.0 mcg/mL (10.0-30.0); Alcohol Less than 10 mg/dL (Less than 10)
[2022-11-27 14:53] LABS: Band 3 % (5-11); Eosinophils 1 % (0-10); Lymphocytes 53 % (21-51); MDiff Complete? YES; Monocytes 4 % (0-10); Neutrophil 35 % (42-75); Platelet Morphology Comment Appears Adequate; RBC Morphology Normal; Reactive Lymphocytes 2 % (0-10)
[2022-11-27 14:56] LABS: Salicylate 43.1 mg/dL (15.0-30.0)
[2022-11-27] MEDS ORDERED: Apixaban 5 MG TAB PO SCH (15:30)
[2022-11-27 16:27] LABS: INR-International Normal Ratio 1.3; PTT 31.3 sec (22.9-36.1); Prothrombin Time 16.6 sec (12.0-14.7)
[2022-11-27 16:31] LABS: Lactic Acid 0.6 mmol/L (0.5-2.2)
[2022-11-27] MEDS ORDERED: Senokot S 8.6-50 MG TAB PO PRN (18:23)
[2022-11-27 19:42] LABS: Bilirubin Negative (Negative); Blood, Urine Negative (Negative); Clarity Clear (Clear); Glucose, Urine (Dipstick) Normal (Negative); Ketone, Urine Trace mg/dL (Negative); Leukocyte Negative Leu/uL (Negative); Nitrite Negative (Negative); Protein, Urine (Dipstick) Negative (Neg-Trace); Specific Gravity, Urine 1.023 (1.002-1.036); Urobilinogen Normal mg/dL (Less than 2)
[2022-11-27 19:51] LABS: Amphetamine Not Detected (NotDetected); Barbiturates Screen Detected (NotDetected); Benzodiazepine Screen Not Detected (NotDetected); Cocaine Metabolite Screen Not Detected (NotDetected); Methadone Not Detected (NotDetected); Methamphetamine Not Detected (NotDetected); Opiate Screen Detected (NotDetected); Oxycodone Screen Not Detected (NotDetected); Phencyclidine (PCP) Not Detected (NotDetected); THC/Cannabinoid Screen Not Detected (NotDetected); Tricyclic Screen Not Detected (NotDetected)
[2022-11-27 20:07] LABS: Acetaminophen Less than 10.0 mcg/mL (10.0-30.0); Alcohol Less than 10 mg/dL (Less than 10)
[2022-11-27 20:13] LABS: Salicylate 35.7 mg/dL (15.0-30.0)
[2022-11-27 23:04] LABS: Anion Gap 15 mmol/L (10-20); BUN (Urea Nitrogen) 25 mg/dL (9.8-20.1); Calc. Creatinine Clearance 0 mL/min (70-130); Calcium 8.6 mg/dL (7.8-10.44); Carbon Dioxide 17 mmol/L (22-29); Chloride 111 mmol/L (98-107); Estimated GFR 60; Glucose 78 mg/dL (70-105); Sodium 139 mmol/L (136-145)
[2022-11-27 23:05] LABS: Acetaminophen Less than 10.0 mcg/mL (10.0-30.0); Alcohol Less than 10 mg/dL (Less than 10); Salicylate 29.4 mg/dL (15.0-30.0)
[2022-11-28] MEDS: Acetaminophen 325 MG TAB PO PRN ×3 (00:11→20:06)
[2022-11-28] MEDS: Sodium Chloride 0.9% 1,000 ML IV SCH ×2 (00:11→10:04)
[2022-11-28 01:48] VITALS: BMI 29.1
[2022-11-28 04:30] LABS: SARS-CoV-2 NAA Rapid Test Not Detected (NotDetected)
[2022-11-28 05:18] LABS: Hemoglobin 12.9 g/dL (12.0-16.0); Mean Corpuscular HGB CONC 33.3 g/dL (32.0-36.0); Mean Corpuscular Hemoglobin 32.7 pg (27.0-31.0); Mean Corpuscular Volume 98.4 fl (78.0-98.0); Mean Platelet Volume 9.8 fL (7.4-10.4); Platelet Count 110 10x3/uL (130-400); RBC Distribution Width 12.6 % (11.5-14.5); Red Blood Cell (RBC) Count 3.95 mill/uL (4.20-5.40); White Blood Cell (WBC) Count 2.6 10x3/uL (4.8-10.8)
[2022-11-28 05:24] LABS: INR-International Normal Ratio 1.6; Prothrombin Time 19.4 sec (12.0-14.7)
[2022-11-28 05:25] LABS: PTT 37.4 sec (22.9-36.1)
[2022-11-28 05:37] LABS: Acetaminophen Less than 10.0 mcg/mL (10.0-30.0); Alcohol Less than 10 mg/dL (Less than 10); Salicylate 22.7 mg/dL (15.0-30.0)
[2022-11-28 05:39] LABS: ALT (SGPT) 13 U/L (8-55); AST (SGOT) 23 U/L (5-34); Albumin 3.7 g/dL (3.5-5.0); Alkaline Phosphatase 49 U/L (40-110); Anion Gap 13 mmol/L (10-20); BUN (Urea Nitrogen) 21 mg/dL (9.8-20.1); Bilirubin, Total Less than 0.2 mg/dL (0.2-1.2); Calc. Creatinine Clearance 87 mL/min (70-130); Calcium 8.6 mg/dL (7.8-10.44); Carbon Dioxide 20 mmol/L (22-29); Cardiac Risk 5.1 (Less than 4.5); Chloride 110 mmol/L (98-107); Cholesterol 142 mg/dl (< 200 Desired); Estimated GFR 72; Globulin 2.3 g/dL (2.4-3.5); Glucose 71 mg/dL (70-105); HDL Cholesterol 28 mg/dL (>60 Neg Risk); LDL Cholesterol, Calculated 81 mg/dL; Potassium 3.7 mmol/L (3.5-5.1); Sodium 139 mmol/L (136-145); Triglycerides 167 mg/dL (Less than 150)
[2022-11-28 05:54] LABS: Lymphocytes 68 % (21-51); MDiff Complete? YES; Monocytes 4 % (0-10); Neutrophil 20 % (42-75); Platelet Morphology Comment Appears Decreased; RBC Morphology Normal; Reactive Lymphocytes 8 % (0-10)
[2022-11-28] MEDS ORDERED: Levothyroxine Sodium 100 MCG TAB PO SCH (06:00)
[2022-11-28] MEDS: Midodrine HCl 5 MG TAB PO SCH ×3 (06:24→17:47)
[2022-11-28] MEDS ORDERED: Escitalopram Oxalate 10 mg Tablet PO SCH (09:00)
[2022-11-28] MEDS ORDERED: Atorvastatin Calcium 40 MG TAB PO SCH (09:00)
[2022-11-28 10:59] LABS: Acetaminophen Less than 10.0 mcg/mL (10.0-30.0); Alcohol Less than 10 mg/dL (Less than 10); Salicylate 16.2 mg/dL (15.0-30.0)
[2022-11-28] MEDS: Gabapentin 300 MG CAP PO SCH ×2 (12:59→20:06)
[2022-11-28] MEDS: Apixaban 5 MG TAB PO SCH (20:06)
[2022-11-28] MEDS: Atorvastatin Calcium 40 MG TAB PO SCH (20:06)
[2022-11-29] MEDS ORDERED: SUMAtriptan Succinate 6 MG/0.5 ML VIAL SC SCH (03:45)
[2022-11-29] MEDS: Midodrine HCl 5 MG TAB PO SCH ×3 (05:54→16:36)
[2022-11-29] MEDS: Levothyroxine Sodium 100 MCG TAB PO SCH (05:54)
[2022-11-29] MEDS: Apixaban 5 MG TAB PO SCH ×2 (08:45→20:29)
[2022-11-29] MEDS: Montelukast Sodium 10 mg Tablet PO SCH (08:46)
[2022-11-29] MEDS: Gabapentin 300 MG CAP PO SCH ×3 (08:46→20:29)
[2022-11-29] MEDS: Lisinopril 10 MG TAB PO SCH (08:47)
[2022-11-29] MEDS: Citalopram 20 MG TAB PO SCH (08:47)
[2022-11-29] MEDS: Promethazine HCl 12.5 MG in Sodium Chloride 0.9% 50 ML IVPB PRN ×2 (10:21→20:28)
[2022-11-29 12:10] LABS: #Lymphocytes 1.1 thou/uL (1.20-3.40); #Monocytes 0.2 thou/uL (0.11-0.59); #Neutrophils 1.3 thou/uL (1.40-6.50); %Basophils 0.5 % (0.0-1.0); %Eosinophils 0.6 % (0.0-10.0); %Lymphocytes 41.6 % (21.0-51.0); %Monocytes 7.5 % (0.0-10.0); %Neutrophils 49.9 % (42.0-75.0); Hemoglobin 14.1 g/dL (12.0-16.0); Mean Corpuscular HGB CONC 33.5 g/dL (32.0-36.0); Mean Corpuscular Hemoglobin 32.8 pg (27.0-31.0); Mean Corpuscular Volume 97.9 fl (78.0-98.0); Mean Platelet Volume 9.6 fL (7.4-10.4); Platelet Count 112 10x3/uL (130-400); RBC Distribution Width 12.3 % (11.5-14.5); White Blood Cell (WBC) Count 2.7 10x3/uL (4.8-10.8)
[2022-11-29 12:28] LABS: Anion Gap 13 mmol/L (10-20); BUN (Urea Nitrogen) 11 mg/dL (9.8-20.1); Calc. Creatinine Clearance 107 mL/min (70-130); Calcium 9.4 mg/dL (7.8-10.44); Carbon Dioxide 27 mmol/L (22-29); Chloride 104 mmol/L (98-107); Estimated GFR 92; Glucose 81 mg/dL (70-105); Potassium 3.6 mmol/L (3.5-5.1); Sodium 140 mmol/L (136-145)
[2022-11-29] MEDS ORDERED: Valproate Sodium 500 MG in Sodium Chloride 0.9% 100 ML IVPB SCH (14:30)
[2022-11-29] MEDS: Topiramate 25 MG TAB PO SCH (20:29)
[2022-11-29] MEDS: Atorvastatin Calcium 40 MG TAB PO SCH (20:29)
[2022-11-30] MEDS: Midodrine HCl 5 MG TAB PO SCH ×3 (05:42→16:08)
[2022-11-30] MEDS: Levothyroxine Sodium 100 MCG TAB PO SCH (05:42)
[2022-11-30 05:45] LABS: #Lymphocytes 0.7 thou/uL (1.20-3.40); #Neutrophils 3.6 thou/uL (1.40-6.50); %Lymphocytes 16.8 % (21.0-51.0); %Monocytes 0.3 % (0.0-10.0); %Neutrophils 82.9 % (42.0-75.0); Hemoglobin 14.4 g/dL (12.0-16.0); Mean Corpuscular HGB CONC 33.3 g/dL (32.0-36.0); Mean Corpuscular Hemoglobin 32.6 pg (27.0-31.0); Mean Platelet Volume 9.5 fL (7.4-10.4); Platelet Count 112 10x3/uL (130-400); RBC Distribution Width 12.2 % (11.5-14.5); Red Blood Cell (RBC) Count 4.42 mill/uL (4.20-5.40); White Blood Cell (WBC) Count 4.4 10x3/uL (4.8-10.8)
[2022-11-30 06:16] LABS: Anion Gap 11 mmol/L (10-20); BUN (Urea Nitrogen) 15 mg/dL (9.8-20.1); Calc. Creatinine Clearance 100 mL/min (70-130); Calcium 9.8 mg/dL (7.8-10.44); Carbon Dioxide 27 mmol/L (22-29); Chloride 104 mmol/L (98-107); Estimated GFR 85; Glucose 137 mg/dL (70-105); Potassium 4.1 mmol/L (3.5-5.1); Sodium 138 mmol/L (136-145)
[2022-11-30] MEDS ORDERED: methylPREDNISolone Sod Succ/PF 125 MG/2 ML VIAL IVPB SCH (09:00)
[2022-11-30] MEDS: Citalopram 20 MG TAB PO SCH (09:15)
[2022-11-30] MEDS: Gabapentin 300 MG CAP PO SCH ×3 (09:15→21:26)
[2022-11-30] MEDS: Lisinopril 10 MG TAB PO SCH (09:18)
[2022-11-30] MEDS: Topiramate 25 MG TAB PO SCH (09:19)
[2022-11-30] MEDS: Montelukast Sodium 10 mg Tablet PO SCH (09:19)
[2022-11-30] MEDS ORDERED: Apixaban 5 MG TAB PO SCH (13:00)
[2022-11-30] MEDS: Promethazine HCl 12.5 MG in Sodium Chloride 0.9% 50 ML IVPB PRN ×2 (17:04→22:49)
[2022-11-30] MEDS: Topiramate 100 MG TAB PO SCH (21:26)
[2022-11-30] MEDS: Atorvastatin Calcium 40 MG TAB PO SCH (21:27)
[2022-11-30] MEDS: Apixaban 5 MG TAB PO SCH (21:27)
[2022-12-01] MEDS: Midodrine HCl 5 MG TAB PO SCH ×3 (05:44→18:30)
[2022-12-01] MEDS: Levothyroxine Sodium 100 MCG TAB PO SCH (05:44)
[2022-12-01 06:26] LABS: Anion Gap 10 mmol/L (10-20); BUN (Urea Nitrogen) 15 mg/dL (9.8-20.1); Calc. Creatinine Clearance 107 mL/min (70-130); Calcium 9.6 mg/dL (7.8-10.44); Carbon Dioxide 27 mmol/L (22-29); Chloride 106 mmol/L (98-107); Estimated GFR 92; Glucose 97 mg/dL (70-105); Potassium 3.4 mmol/L (3.5-5.1); Sodium 140 mmol/L (136-145)
[2022-12-01 06:30] LABS: Mean Corpuscular Hemoglobin 32.5 pg (27.0-31.0); Mean Corpuscular Volume 98.4 fl (78.0-98.0); Mean Platelet Volume 9.6 fL (7.4-10.4); Platelet Count 109 10x3/uL (130-400); RBC Distribution Width 12.5 % (11.5-14.5); Red Blood Cell (RBC) Count 4.31 mill/uL (4.20-5.40); White Blood Cell (WBC) Count 3.6 10x3/uL (4.8-10.8)
[2022-12-01 07:50] LABS: Band 1 % (5-11); Lymphocytes 42 % (21-51); MDiff Complete? YES; Monocytes 3 % (0-10); Neutrophil 35 % (42-75); Platelet Morphology Comment Appears Decreased; RBC Morphology Normal; Reactive Lymphocytes 19 % (0-10)
[2022-12-01] MEDS ORDERED: FLU VACC QS2022-23(6MOS UP)/PF 60 MCG/0.5 ML SYRINGE IM ONE (09:00)
[2022-12-01] MEDS: Gabapentin 300 MG CAP PO SCH ×3 (09:05→21:51)
[2022-12-01] MEDS: Lisinopril 10 MG TAB PO SCH (09:06)
[2022-12-01] MEDS: Montelukast Sodium 10 mg Tablet PO SCH (09:06)
[2022-12-01] MEDS: Topiramate 100 MG TAB PO SCH ×2 (09:06→21:52)
[2022-12-01] MEDS: Citalopram 20 MG TAB PO SCH (09:06)
[2022-12-01] MEDS: Apixaban 5 MG TAB PO SCH (09:06)
[2022-12-01] MEDS: Acetaminophen 325 MG TAB PO PRN (16:02)
[2022-12-01] MEDS: Promethazine HCl 12.5 MG in Sodium Chloride 0.9% 50 ML IVPB PRN (21:51)
[2022-12-01] MEDS: Atorvastatin Calcium 40 MG TAB PO SCH (21:52)
[2022-12-02] MEDS: Midodrine HCl 5 MG TAB PO SCH ×3 (06:10→16:22)
[2022-12-02] MEDS: Levothyroxine Sodium 100 MCG TAB PO SCH (06:11)
[2022-12-02] MEDS: Lisinopril 10 MG TAB PO SCH (09:31)
[2022-12-02] MEDS: Montelukast Sodium 10 mg Tablet PO SCH (09:31)
[2022-12-02] MEDS: Citalopram 20 MG TAB PO SCH (09:31)
[2022-12-02] MEDS: Topiramate 100 MG TAB PO SCH ×2 (09:32→21:26)
[2022-12-02] MEDS: Gabapentin 300 MG CAP PO SCH ×3 (09:32→21:27)
[2022-12-02] MEDS: Atorvastatin Calcium 40 MG TAB PO SCH (21:26)
[2022-12-02] MEDS: Promethazine HCl 12.5 MG in Sodium Chloride 0.9% 50 ML IVPB PRN (21:28)
[2022-12-03] MEDS: Levothyroxine Sodium 100 MCG TAB PO SCH (05:21)
[2022-12-03] MEDS: Midodrine HCl 5 MG TAB PO SCH ×3 (05:21→17:17)
[2022-12-03] MEDS ORDERED: CEFAZOLIN 2 GM VIAL ONE (06:19)
[2022-12-03] MEDS ORDERED: Gentamicin 80 MG/2 ML VIAL ONE (06:19)
[2022-12-03] MEDS ORDERED: Lidocaine 1% (PF) 30 ML VIAL ONE ×2 (06:19→07:25)
[2022-12-03] MEDS ORDERED: CEFAZOLIN 1 GM VIAL ONE (06:19)
[2022-12-03] MEDS ORDERED: Midazolam HCl 2 mg/2 ml Vial ONE (07:02)
[2022-12-03] MEDS ORDERED: FENTANYL 50 MCG/ML 1 ML VIAL ONE (07:02)
[2022-12-03] MEDS ORDERED: Ondansetron PF 4 MG/2 ML Vial ONE (08:10)
[2022-12-03] MEDS: Citalopram 20 MG TAB PO SCH (08:34)
[2022-12-03] MEDS: Lisinopril 10 MG TAB PO SCH (08:34)
[2022-12-03] MEDS: Gabapentin 300 MG CAP PO SCH ×2 (08:34→15:02)
[2022-12-03] MEDS: Topiramate 100 MG TAB PO SCH (08:35)
[2022-12-03] MEDS: Montelukast Sodium 10 mg Tablet PO SCH (08:35)
[2022-12-03] MEDS: Acetaminophen 325 MG TAB PO PRN (12:30)
[2022-12-03 15:39] VITALS: BP 125/87; TEMP 97
== END 2022-12-03 19:38 | disposition home or self-care (01) | DRG 243 ==
LOC: ERS 13:53 → ERHOLD 15:23 → NEURO 23:33 → OBSVTOIN 11-29 09:36
PROVIDERS: ADMIT Internal Medicine; ATTEND Internal Medicine
PROC: 4A00X4Z Measurement of Central Nervous Electrical Activity, External Approach (ICD-10-PCS; 2022-11-29)
PROC: 0JH606Z Insertion of Pacemaker, Dual Chamber into Chest Subcutaneous Tissue and Fascia, Open Approach (ICD-10-PCS; principal; 2022-12-03)
PROC: 02H60JZ Insertion of Pacemaker Lead into Right Atrium, Open Approach (ICD-10-PCS; 2022-12-03)
PROC: 02HL0JZ Insertion of Pacemaker Lead into Left Ventricle, Open Approach (ICD-10-PCS; 2022-12-03)
DX: R00.1 Bradycardia, unspecified (principal); G45.9 Transient cerebral ischemic attack, unspecified; G90.50 Complex regional pain syndrome I, unspecified; N17.9 Acute kidney failure, unspecified; I82.531 Chronic embolism and thrombosis of right popliteal vein; T39.091A Poisoning by salicylates, accidental (unintentional), initial encounter; I95.1 Orthostatic hypotension; G43.909 Migraine, unspecified, not intractable, without status migrainosus; I10 Essential (primary) hypertension; E03.9 Hypothyroidism, unspecified; F41.9 Anxiety disorder, unspecified; F32.A Depression, unspecified; F10.10 Alcohol abuse, uncomplicated; D56.0 Alpha thalassemia; G47.00 Insomnia, unspecified; G90.9 Disorder of the autonomic nervous system, unspecified; E87.5 Hyperkalemia; D50.9 Iron deficiency anemia, unspecified; E78.00 Pure hypercholesterolemia, unspecified; I49.5 Sick sinus syndrome; Z88.5 Allergy status to narcotic agent; Z88.7 Allergy status to serum and vaccine; Z79.01 Long term (current) use of anticoagulants; Z79.51 Long term (current) use of inhaled steroids; Z79.890 Hormone replacement therapy; Z86.711 Personal history of pulmonary embolism
CPT/HCPCS: 33208; 36415; 36416; 70450; 70496; 70498; 70551; 71045; 80048; 80053; 80061; 80306; 80307; 81003; 82140; 82550; 83605; 83690; 84146; 84443; 84484; 85025; 85610; 85730; 90471; 90686; 93005; 93306; 95816; 95819; 95957; 96372; C1785; C1898; G0008; G0378; J0690; J1580; J2001; J2250; J2405; J2550; J2930; J3010; J3030; J3490; J7050; Q9967

== ENCOUNTER 2025-06-29 12:04 | Outpatient (CLI) | payer MEDICARE | END 2025-06-29 12:05 | disposition home or self-care (01) | LOC: BICMAMMO 12:04 | PROVIDERS: ATTEND Nurse Practitioner Family | DX: Z12.31 Encounter for screening mammogram for malignant neoplasm of breast (principal); Z80.3 Family history of malignant neoplasm of breast; Z91.89 Other specified personal risk factors, not elsewhere classified | CPT/HCPCS: 77063; 77067 ==

== ENCOUNTER 2025-08-17 14:38 | Outpatient (CLI) | payer MEDICARE | END 2025-08-17 14:39 | disposition home or self-care (01) | LOC: BICRAD 14:38 | PROVIDERS: ATTEND Nurse Practitioner Family | DX: S69.91XA Unspecified injury of right wrist, hand and finger(s), initial encounter (principal) ==

== ENCOUNTER 2025-08-30 08:25 | Inpatient (IN) | payer MEDICARE ==
[2025-08-30] MEDS ORDERED: Iopamidol-370 76% 500 ML MDV (1 ML CHARGE) ONE (08:28)
[2025-08-30] MEDS ORDERED: Ondansetron PF 4 MG/2 ML Vial ONE ×2 (09:37→21:16)
[2025-08-30] MEDS ORDERED: Ketorolac Tromethamine 30 MG (1 mL) VIAL ONE (09:37)
[2025-08-30 09:42] LABS: #Basophils Less than 0.03 10x3/uL (0.0-0.2); #Eosinophils Less than 0.03 10x3/uL (0.0-0.7); #Monocytes 0.19 10x3/uL (0.11-0.59); #Neutrophils 5.51 10x3/uL (1.40-6.50); %Basophils 0.2 % (0.0-1.0); %Eosinophils 0.0 % (0.0-10.0); %Lymphocytes 11.7 % (21.0-51.0); %Monocytes 2.9 % (0.0-10.0); %Neutrophils 85.0 % (42.0-75.0); Hematocrit 34.9 % (36.0-47.0); Hemoglobin 11.1 g/dL (12.0-16.0); Mean Corpuscular Hemoglobin 28.2 pg (27.0-31.0); Mean Corpuscular Volume 88.8 fL (78.0-98.0); Platelet Count 197 10x3/uL (130-400); Red Blood Cell (RBC) Count 3.93 mill/uL (4.20-5.40); White Blood Cell (WBC) Count 6.48 10x3/uL (4.8-10.8)
[2025-08-30 10:03] LABS: ALT (SGPT) 9 U/L (Less than 34); AST (SGOT) 16 U/L (11-34); Albumin 3.9 g/dL (3.1-4.5); Alkaline Phosphatase 61 U/L (40-110); Anion Gap 17 mmol/L (10-20); BUN (Urea Nitrogen) 48 mg/dL (9.8-20.1); Bilirubin, Total 0.2 mg/dL (0.3-1.2); Calc. Creatinine Clearance 0 mL/min (70-130); Calcium 9.2 mg/dL (7.8-10.44); Carbon Dioxide 21 mmol/L (22-29); Chloride 107 mmol/L (98-107); Globulin 3.0 g/dL (2.4-3.5); Glucose 130 mg/dL (70-105); Lipase 12 U/L (8-78); Potassium 4.5 mmol/L (3.5-5.1); Sodium 140 mmol/L (136-145)
[2025-08-30] MEDS ORDERED: dilTIAZem 25 MG/5 ML VIAL ONE (11:59)
[2025-08-30] MEDS ORDERED: diphenhydrAMINE 50 MG/ML VIAL ONE (12:43)
[2025-08-30] MEDS ORDERED: Metoclopramide HCl 10 MG (2 mL) VIAL ONE (12:43)
[2025-08-30] MEDS ORDERED: Acetaminophen 325 MG TAB PO PRN (20:32)
[2025-08-30] MEDS ORDERED: Metoprolol Tartrate 5 MG (5 mL) VIAL IVP PRN (20:45)
[2025-08-30] MEDS: Ondansetron PF 4 MG/2 ML Vial IVP PRN (21:20)
[2025-08-30] MEDS ORDERED: Enoxaparin 60 MG (0.6 mL) SYRINGE ONE (21:48)
[2025-08-30] MEDS ORDERED: Pantoprazole 40 MG VIAL ONE (21:48)
[2025-08-30] MEDS: Pantoprazole 40 MG VIAL IVP SCH (22:06)
[2025-08-30] MEDS: Enoxaparin 60 MG (0.6 mL) SYRINGE SC SCH (22:07)
[2025-08-31 05:00] LABS: Anion Gap 10 mmol/L (10-20); BUN (Urea Nitrogen) 54 mg/dL (9.8-20.1); Calc. Creatinine Clearance 63 mL/min (70-130); Calcium 7.9 mg/dL (7.8-10.44); Carbon Dioxide 21 mmol/L (22-29); Chloride 115 mmol/L (98-107); Glucose 159 mg/dL (70-105); Magnesium 1.9 mg/dL (1.6-2.6); Potassium 3.7 mmol/L (3.5-5.1); Sodium 142 mmol/L (136-145)
[2025-08-31 05:42] LABS: #Basophils Less than 0.03 10x3/uL (0.0-0.2); #Eosinophils Less than 0.03 10x3/uL (0.0-0.7); #Monocytes 0.27 10x3/uL (0.11-0.59); #Neutrophils 5.69 10x3/uL (1.40-6.50); %Basophils 0.1 % (0.0-1.0); %Eosinophils 0.0 % (0.0-10.0); %Lymphocytes 17.2 % (21.0-51.0); %Monocytes 3.7 % (0.0-10.0); %Neutrophils 78.2 % (42.0-75.0); Hematocrit 18.2 % (36.0-47.0); Hemoglobin 5.6 g/dL (12.0-16.0); Mean Corpuscular Hemoglobin 28.3 pg (27.0-31.0); Mean Corpuscular Volume 91.9 fL (78.0-98.0); Platelet Count 141 10x3/uL (130-400); Red Blood Cell (RBC) Count 1.98 mill/uL (4.20-5.40); White Blood Cell (WBC) Count 7.28 10x3/uL (4.8-10.8)
[2025-08-31 05:52] LABS: INR-International Normal Ratio 1.3; PTT 30.4 sec (22.9-36.1); Prothrombin Time 15.9 sec (12.0-14.7)
[2025-08-31] MEDS ORDERED: MD-Gastroview 120 ML BOT ONE (07:07)
[2025-08-31] MEDS: Pantoprazole 40 MG VIAL IVP SCH (10:59)
[2025-08-31] MEDS ORDERED: Iopamidol 370 76% 100 ML VIAL ONE (13:12)
[2025-08-31] MEDS ORDERED: Lidocaine 1% PF 5 ML VIAL ONE (14:55)
[2025-08-31] MEDS ORDERED: SUCCINYLCHOLINE/SOD CL,ISO/PF 200 MG/10 ML SYRINGE FS ONE ×2 (14:55→18:32)
[2025-08-31] MEDS ORDERED: PHENYLEPHRINE-NS 100 MCG/ML 10 ML SYRINGE ONE ×2 (14:55→18:32)
[2025-08-31] MEDS ORDERED: PROPOFOL 200 MG/20 ML VIAL ONE (14:55)
[2025-08-31] MEDS ORDERED: Ondansetron PF 4 MG/2 ML Vial ONE (16:28)
[2025-08-31 16:36] LABS: #Basophils 0.04 10x3/uL (0.0-0.2); #Eosinophils Less than 0.03 10x3/uL (0.0-0.7); #Monocytes 0.96 10x3/uL (0.11-0.59); #Neutrophils 18.53 10x3/uL (1.40-6.50); %Basophils 0.2 % (0.0-1.0); %Eosinophils 0.0 % (0.0-10.0); %Lymphocytes 7.1 % (21.0-51.0); %Monocytes 4.5 % (0.0-10.0); %Neutrophils 86.7 % (42.0-75.0); Hematocrit 30.9 % (36.0-47.0); Hemoglobin 9.6 g/dL (12.0-16.0); Mean Corpuscular Hemoglobin 30.3 pg (27.0-31.0); Mean Corpuscular Volume 97.5 fL (78.0-98.0); Platelet Count 184 10x3/uL (130-400); Red Blood Cell (RBC) Count 3.17 mill/uL (4.20-5.40); White Blood Cell (WBC) Count 21.35 10x3/uL (4.8-10.8)
[2025-08-31 16:57] LABS: Actual Bicarbonate (HCO3a) 15.4 mEq/L (22-28); Base Excess (BEa) -8.5 mEq/L (-2.0 to +3.0); CO2 Tension 26.9 mmHg (35.0-45.0); Calcium, Ionized (arterial) 1.19 mmol/L (1.12-1.30); Hematocrit-ABG 29 % (36.0-47.0); Hemoglobin (Hb) 10.0 g/dL (12.0-16.0); O2 Tension (PaO2), arterial 97.3 mmHg (80.0-100.0); Potassium - ABG Lab 4.27 mmol/L (3.70-5.30); Puncture Site Right Radial artery; pH, Arterial 7.376 (7.35-7.45)
[2025-08-31] MEDS ORDERED: Rocuronium Bromide 10 MG/ML (10ML VIAL) ONE (18:32)
[2025-08-31] MEDS ORDERED: DISCONTINUE PREVIOUS NARCOTIC PAIN MEDICATIONS AND BENZODIAZEPINES FS SCH (21:00)
[2025-08-31] MEDS ORDERED: Propofol BOLUS 1,000 MG/100 ML VIAL IV PRN (21:00)
[2025-08-31] MEDS ORDERED: Fentanyl BOLUS 100 ML IVPB PRN (21:00)
[2025-08-31 21:24] LABS: ALV-art Gradient 122.025 mmHg (0-20); Actual Bicarbonate (HCO3a) 17.0 mEq/L (22-28); Base Excess (BEa) -7.5 mEq/L (-2.0 to +3.0); CO2 Tension 30.3 mmHg (35.0-45.0); Calcium, Ionized (arterial) 1.12 mmol/L (1.12-1.30); Hematocrit-ABG 23 % (36.0-47.0); Hemoglobin (Hb) 7.9 g/dL (12.0-16.0); O2 Tension (PaO2), arterial 553.1 mmHg (80.0-100.0); Potassium - ABG Lab 3.70 mmol/L (3.70-5.30); Puncture Site Right Brachial art; pH, Arterial 7.366 (7.35-7.45)
[2025-08-31] MEDS: Ventilator Sedation Protocol 1 EACH FS ONE (21:56)
[2025-08-31 23:56] LABS: #Basophils Less than 0.03 10x3/uL (0.0-0.2); #Eosinophils Less than 0.03 10x3/uL (0.0-0.7); #Monocytes 1.10 10x3/uL (0.11-0.59); #Neutrophils 13.75 10x3/uL (1.40-6.50); %Basophils 0.1 % (0.0-1.0); %Eosinophils 0.0 % (0.0-10.0); %Lymphocytes 9.2 % (21.0-51.0); %Monocytes 6.7 % (0.0-10.0); %Neutrophils 83.5 % (42.0-75.0); Hematocrit 23.8 % (36.0-47.0); Hemoglobin 7.8 g/dL (12.0-16.0); Mean Corpuscular Hemoglobin 30.4 pg (27.0-31.0); Mean Corpuscular Volume 92.6 fL (78.0-98.0); Platelet Count 114 10x3/uL (130-400); Red Blood Cell (RBC) Count 2.57 mill/uL (4.20-5.40); White Blood Cell (WBC) Count 16.48 10x3/uL (4.8-10.8)
[2025-08-31 23:59] LABS: INR-International Normal Ratio 1.3; Prothrombin Time 16.6 sec (12.0-14.7)
[2025-08-31] MEDS ORDERED: CEFOXITIN IVPB SCH (23:59)
[2025-09-01] LABS: PTT 26.1 sec (22.9-36.1)
[2025-09-01 00:01] LABS: Anion Gap 15 mmol/L (10-20); BUN (Urea Nitrogen) 69 mg/dL (9.8-20.1); Calc. Creatinine Clearance 32 mL/min (70-130); Calcium 8.0 mg/dL (7.8-10.44); Carbon Dioxide 16 mmol/L (22-29); Chloride 118 mmol/L (98-107); Glucose 138 mg/dL (70-105); Potassium 3.7 mmol/L (3.5-5.1); Sodium 145 mmol/L (136-145)
[2025-09-01] MEDS: cefOXitin Sodium 1 GM in Sodium Chloride 0.9% 100 ML IVPB SCH (01:05)
[2025-09-01 04:05] LABS: Anion Gap 14 mmol/L (10-20); BUN (Urea Nitrogen) 71 mg/dL (9.8-20.1); Calc. Creatinine Clearance 26 mL/min (70-130); Calcium 8.1 mg/dL (7.8-10.44); Carbon Dioxide 18 mmol/L (22-29); Chloride 118 mmol/L (98-107); Glucose 116 mg/dL (70-105); Magnesium 2.0 mg/dL (1.6-2.6); Potassium 3.5 mmol/L (3.5-5.1); Sodium 146 mmol/L (136-145)
[2025-09-01 04:31] LABS: #Basophils 0.03 10x3/uL (0.0-0.2); #Eosinophils Less than 0.03 10x3/uL (0.0-0.7); #Monocytes 1.07 10x3/uL (0.11-0.59); #Neutrophils 15.03 10x3/uL (1.40-6.50); %Basophils 0.2 % (0.0-1.0); %Eosinophils 0.0 % (0.0-10.0); %Lymphocytes 12.4 % (21.0-51.0); %Monocytes 5.8 % (0.0-10.0); %Neutrophils 81.0 % (42.0-75.0); Hematocrit 23.8 % (36.0-47.0); Hemoglobin 7.9 g/dL (12.0-16.0); Mean Corpuscular Hemoglobin 30.6 pg (27.0-31.0); Mean Corpuscular Volume 92.2 fL (78.0-98.0); Platelet Count 130 10x3/uL (130-400); Red Blood Cell (RBC) Count 2.58 mill/uL (4.20-5.40); White Blood Cell (WBC) Count 18.54 10x3/uL (4.8-10.8)
[2025-09-01] MEDS ORDERED: Electrolyte Replacement Protocol 1 EACH FS SCH (06:45)
[2025-09-01] MEDS: Magnesium 2 GM/50 ML(in water) 2 GM in Premix 1 BAG IVPB SCH (08:14)
[2025-09-01] MEDS: Enoxaparin 30 MG (0.3 mL) SYRINGE SC SCH (08:14)
[2025-09-01] MEDS: Potassium Chloride 20 MEQ in Premix 1 BAG IVPB SCH (08:15)
[2025-09-01 15:20] LABS: Anion Gap 12 mmol/L (10-20); BUN (Urea Nitrogen) 75 mg/dL (9.8-20.1); Calc. Creatinine Clearance 19 mL/min (70-130); Calcium 8.0 mg/dL (7.8-10.44); Carbon Dioxide 19 mmol/L (22-29); Chloride 119 mmol/L (98-107); Glucose 123 mg/dL (70-105); Potassium 4.2 mmol/L (3.5-5.1); Sodium 146 mmol/L (136-145)
[2025-09-02 04:16] LABS: #Basophils Less than 0.03 10x3/uL (0.0-0.2); #Eosinophils Less than 0.03 10x3/uL (0.0-0.7); #Monocytes 0.81 10x3/uL (0.11-0.59); #Neutrophils 8.80 10x3/uL (1.40-6.50); %Basophils 0.1 % (0.0-1.0); %Eosinophils 0.0 % (0.0-10.0); %Lymphocytes 14.1 % (21.0-51.0); %Monocytes 7.2 % (0.0-10.0); %Neutrophils 78.1 % (42.0-75.0); Hematocrit 20.6 % (36.0-47.0); Hemoglobin 6.6 g/dL (12.0-16.0); Mean Corpuscular Hemoglobin 30.3 pg (27.0-31.0); Mean Corpuscular Volume 94.5 fL (78.0-98.0); Platelet Count 128 10x3/uL (130-400); Red Blood Cell (RBC) Count 2.18 mill/uL (4.20-5.40); White Blood Cell (WBC) Count 11.27 10x3/uL (4.8-10.8)
[2025-09-02 04:39] LABS: ALT (SGPT) 10 U/L (Less than 34); AST (SGOT) 27 U/L (11-34); Albumin 2.4 g/dL (3.1-4.5); Alkaline Phosphatase 32 U/L (40-110); Anion Gap 11 mmol/L (10-20); BUN (Urea Nitrogen) 64 mg/dL (9.8-20.1); Bilirubin, Total 0.3 mg/dL (0.3-1.2); Calc. Creatinine Clearance 26 mL/min (70-130); Calcium 7.8 mg/dL (7.8-10.44); Carbon Dioxide 20 mmol/L (22-29); Chloride 120 mmol/L (98-107); Globulin 1.8 g/dL (2.4-3.5); Glucose 94 mg/dL (70-105); Magnesium 2.6 mg/dL (1.6-2.6); Potassium 3.4 mmol/L (3.5-5.1); Sodium 148 mmol/L (136-145)
[2025-09-02 07:45] VITALS: BMI 21.1
[2025-09-02] MEDS: Potassium Chloride 40 MEQ in Premix 1 BAG IVPB SCH ×2 (08:14→19:16)
[2025-09-02] MEDS ORDERED: PCA Communication Order-Pharmacy FS SCH (12:45)
[2025-09-02] MEDS: HYDROmorphone HCl/0.9% NaCl/PF 30 ML IV SCH (13:15)
[2025-09-02 13:26] LABS: #Basophils 0.03 10x3/uL (0.0-0.2); #Eosinophils Less than 0.03 10x3/uL (0.0-0.7); #Monocytes 0.77 10x3/uL (0.11-0.59); #Neutrophils 7.73 10x3/uL (1.40-6.50); %Basophils 0.3 % (0.0-1.0); %Eosinophils 0.1 % (0.0-10.0); %Lymphocytes 14.2 % (21.0-51.0); %Monocytes 7.7 % (0.0-10.0); %Neutrophils 77.2 % (42.0-75.0); Hematocrit 25.3 % (36.0-47.0); Hemoglobin 8.1 g/dL (12.0-16.0); Mean Corpuscular Hemoglobin 28.8 pg (27.0-31.0); Mean Corpuscular Volume 90.0 fL (78.0-98.0); Platelet Count 126 10x3/uL (130-400); Red Blood Cell (RBC) Count 2.81 mill/uL (4.20-5.40); White Blood Cell (WBC) Count 10.01 10x3/uL (4.8-10.8)
[2025-09-02 14:35] LABS: Potassium 3.4 mmol/L (3.5-5.1)
[2025-09-02 16:30] VITALS: BMI 21.1
[2025-09-02] MEDS: hydrALAZINE 20 MG/ML VIAL SLOW IVP PRN (20:53)
[2025-09-03 05:27] LABS: Anion Gap 9 mmol/L (10-20); BUN (Urea Nitrogen) 38 mg/dL (9.8-20.1); Calc. Creatinine Clearance 57 mL/min (70-130); Calcium 7.7 mg/dL (7.8-10.44); Carbon Dioxide 21 mmol/L (22-29); Chloride 120 mmol/L (98-107); Glucose 107 mg/dL (70-105); Potassium 3.5 mmol/L (3.5-5.1); Sodium 146 mmol/L (136-145)
[2025-09-03 05:47] LABS: #Basophils Less than 0.03 10x3/uL (0.0-0.2); #Eosinophils Less than 0.03 10x3/uL (0.0-0.7); #Monocytes 0.41 10x3/uL (0.11-0.59); #Neutrophils 5.75 10x3/uL (1.40-6.50); %Basophils 0.1 % (0.0-1.0); %Eosinophils 0.0 % (0.0-10.0); %Lymphocytes 9.2 % (21.0-51.0); %Monocytes 6.0 % (0.0-10.0); %Neutrophils 83.8 % (42.0-75.0); Hematocrit 23.3 % (36.0-47.0); Hemoglobin 7.3 g/dL (12.0-16.0); Mean Corpuscular Hemoglobin 28.4 pg (27.0-31.0); Mean Corpuscular Volume 90.7 fL (78.0-98.0); Platelet Count 110 10x3/uL (130-400); Red Blood Cell (RBC) Count 2.57 mill/uL (4.20-5.40); White Blood Cell (WBC) Count 6.86 10x3/uL (4.8-10.8)
[2025-09-03 14:09] LABS: Potassium 3.7 mmol/L (3.5-5.1)
[2025-09-04 06:33] LABS: #Basophils Less than 0.03 10x3/uL (0.0-0.2); #Eosinophils 0.12 10x3/uL (0.0-0.7); #Monocytes 0.32 10x3/uL (0.11-0.59); #Neutrophils 2.46 10x3/uL (1.40-6.50); %Basophils 0.3 % (0.0-1.0); %Eosinophils 3.3 % (0.0-10.0); %Lymphocytes 19.7 % (21.0-51.0); %Monocytes 8.8 % (0.0-10.0); %Neutrophils 67.4 % (42.0-75.0); Hematocrit 21.4 % (36.0-47.0); Hemoglobin 6.7 g/dL (12.0-16.0); Mean Corpuscular Hemoglobin 28.8 pg (27.0-31.0); Mean Corpuscular Volume 91.8 fL (78.0-98.0); Platelet Count 100 10x3/uL (130-400); Red Blood Cell (RBC) Count 2.33 mill/uL (4.20-5.40); White Blood Cell (WBC) Count 3.65 10x3/uL (4.8-10.8)
[2025-09-04 06:46] LABS: Anion Gap 10 mmol/L (10-20); BUN (Urea Nitrogen) 22 mg/dL (9.8-20.1); Calc. Creatinine Clearance 93 mL/min (70-130); Calcium 7.7 mg/dL (7.8-10.44); Carbon Dioxide 22 mmol/L (22-29); Chloride 116 mmol/L (98-107); Glucose 80 mg/dL (70-105); Potassium 3.4 mmol/L (3.5-5.1); Sodium 145 mmol/L (136-145)
[2025-09-04] MEDS: Pantoprazole 40 MG DR.TAB PO SCH (10:02)
[2025-09-04 12:33] LABS: Hematocrit 21.4 % (36.0-47.0); Hemoglobin 6.6 g/dL (12.0-16.0)
[2025-09-04] MEDS: HYDROcodone/Acetaminophen 7.5/325 mg Tablet PO PRN (16:05)
[2025-09-04] MEDS: cefOXitin Sodium 1 GM in Sodium Chloride 0.9% 100 ML IVPB SCH (19:29)
[2025-09-04] MEDS: Mometasone 200 MCG/Formoterol 5 MCG 120 PUFF INHALER INH SCH (19:38)
[2025-09-04] MEDS: Gabapentin 300 MG CAP PO SCH (20:37)
[2025-09-04] MEDS: Topiramate 100 MG TAB PO SCH (20:40)
[2025-09-04] MEDS: Mupirocin 1 GM TUBE NASAL DECOLONIZATION NASAL SCH (20:42)
[2025-09-05 05:16] LABS: #Basophils 0.03 10x3/uL (0.0-0.2); #Eosinophils 0.09 10x3/uL (0.0-0.7); #Monocytes 0.35 10x3/uL (0.11-0.59); #Neutrophils 2.85 10x3/uL (1.40-6.50); %Basophils 0.7 % (0.0-1.0); %Eosinophils 2.1 % (0.0-10.0); %Lymphocytes 20.7 % (21.0-51.0); %Monocytes 8.2 % (0.0-10.0); %Neutrophils 66.9 % (42.0-75.0); Hematocrit 29.4 % (36.0-47.0); Hemoglobin 9.3 g/dL (12.0-16.0); Mean Corpuscular Hemoglobin 28.8 pg (27.0-31.0); Mean Corpuscular Volume 91.0 fL (78.0-98.0); Platelet Count 121 10x3/uL (130-400); Red Blood Cell (RBC) Count 3.23 mill/uL (4.20-5.40); White Blood Cell (WBC) Count 4.26 10x3/uL (4.8-10.8)
[2025-09-05 05:31] LABS: Anion Gap 11 mmol/L (10-20); BUN (Urea Nitrogen) 17 mg/dL (9.8-20.1); Calc. Creatinine Clearance 93 mL/min (70-130); Calcium 7.6 mg/dL (7.8-10.44); Carbon Dioxide 19 mmol/L (22-29); Chloride 113 mmol/L (98-107); Glucose 65 mg/dL (70-105); Potassium 3.3 mmol/L (3.5-5.1); Sodium 140 mmol/L (136-145)
[2025-09-06 05:07] LABS: #Basophils Less than 0.03 10x3/uL (0.0-0.2); #Eosinophils 0.20 10x3/uL (0.0-0.7); #Monocytes 0.49 10x3/uL (0.11-0.59); #Neutrophils 3.31 10x3/uL (1.40-6.50); %Basophils 0.2 % (0.0-1.0); %Eosinophils 3.9 % (0.0-10.0); %Lymphocytes 20.8 % (21.0-51.0); %Monocytes 9.6 % (0.0-10.0); %Neutrophils 64.9 % (42.0-75.0); Hematocrit 32.5 % (36.0-47.0); Hemoglobin 10.7 g/dL (12.0-16.0); Mean Corpuscular Hemoglobin 29.5 pg (27.0-31.0); Mean Corpuscular Volume 89.5 fL (78.0-98.0); Platelet Count 159 10x3/uL (130-400); Red Blood Cell (RBC) Count 3.63 mill/uL (4.20-5.40); White Blood Cell (WBC) Count 5.10 10x3/uL (4.8-10.8)
[2025-09-06 05:32] LABS: Anion Gap 8 mmol/L (10-20); BUN (Urea Nitrogen) 11 mg/dL (9.8-20.1); Calc. Creatinine Clearance 90 mL/min (70-130); Calcium 7.8 mg/dL (7.8-10.44); Carbon Dioxide 22 mmol/L (22-29); Chloride 114 mmol/L (98-107); Glucose 90 mg/dL (70-105); Potassium 3.6 mmol/L (3.5-5.1); Sodium 140 mmol/L (136-145)
[2025-09-07 05:40] LABS: #Basophils 0.03 10x3/uL (0.0-0.2); #Eosinophils 0.19 10x3/uL (0.0-0.7); #Monocytes 0.51 10x3/uL (0.11-0.59); #Neutrophils 3.27 10x3/uL (1.40-6.50); %Basophils 0.6 % (0.0-1.0); %Eosinophils 3.7 % (0.0-10.0); %Lymphocytes 20.5 % (21.0-51.0); %Monocytes 10.0 % (0.0-10.0); %Neutrophils 64.4 % (42.0-75.0); Hematocrit 32.7 % (36.0-47.0); Hemoglobin 10.6 g/dL (12.0-16.0); Mean Corpuscular Hemoglobin 29.5 pg (27.0-31.0); Mean Corpuscular Volume 91.1 fL (78.0-98.0); Platelet Count 165 10x3/uL (130-400); Red Blood Cell (RBC) Count 3.59 mill/uL (4.20-5.40); White Blood Cell (WBC) Count 5.08 10x3/uL (4.8-10.8)
[2025-09-07 05:57] LABS: Anion Gap 6 mmol/L (10-20); BUN (Urea Nitrogen) 9 mg/dL (9.8-20.1); Calc. Creatinine Clearance 94 mL/min (70-130); Calcium 7.8 mg/dL (7.8-10.44); Carbon Dioxide 22 mmol/L (22-29); Chloride 114 mmol/L (98-107); Glucose 98 mg/dL (70-105); Potassium 3.6 mmol/L (3.5-5.1); Sodium 138 mmol/L (136-145)
[2025-09-07] MEDS: Apixaban 5 MG TAB PO SCH (12:55)
[2025-09-07 16:10] VITALS: BP 138/85; TEMP 97.9
[2025-09-07] MEDS ORDERED: Apixaban 5 MG TAB PO SCH (21:00)
== END 2025-09-07 19:15 | disposition home or self-care (01) | DRG 329 ==
LOC: ERS 08:25 → ERHOLD 20:02 → PCU 08-31 01:20 → OBSVTOIN 08-31 13:48 → CCU 08-31 17:29 → SURG B 09-03 18:41
PROVIDERS: ADMIT Internal Medicine; ATTEND Internal Medicine
PROC: 0DS80ZZ Reposition Small Intestine, Open Approach (ICD-10-PCS; 2025-08-30)
PROC: 0DQV0ZZ Repair Mesentery, Open Approach (ICD-10-PCS; 2025-08-30)
PROC: 0D980ZZ Drainage of Small Intestine, Open Approach (ICD-10-PCS; 2025-08-30)
PROC: 0DC80ZZ Extirpation of Matter from Small Intestine, Open Approach (ICD-10-PCS; 2025-08-30)
PROC: 0DB68ZX Excision of Stomach, Via Natural or Artificial Opening Endoscopic, Diagnostic (ICD-10-PCS; principal; 2025-08-31)
PROC: 3E03329 Introduction of Other Anti-infective into Peripheral Vein, Percutaneous Approach (ICD-10-PCS; 2025-08-31)
PROC: 30233N1 Transfusion of Nonautologous Red Blood Cells into Peripheral Vein, Percutaneous Approach (ICD-10-PCS; 2025-08-31)
PROC: 5A1935Z Respiratory Ventilation, Less than 24 Consecutive Hours (ICD-10-PCS; 2025-08-31)
PROC: 02HV33Z Insertion of Infusion Device into Superior Vena Cava, Percutaneous Approach (ICD-10-PCS; 2025-08-31)
PROC: 4A133R1 Monitoring of Arterial Saturation, Peripheral, Percutaneous Approach (ICD-10-PCS; 2025-08-31)
PROC: 0T9B70Z Drainage of Bladder with Drainage Device, Via Natural or Artificial Opening (ICD-10-PCS; 2025-08-31)
PROC: 0D9670Z Drainage of Stomach with Drainage Device, Via Natural or Artificial Opening (ICD-10-PCS; 2025-08-31)
PROC: 3E033XZ Introduction of Vasopressor into Peripheral Vein, Percutaneous Approach (ICD-10-PCS; 2025-08-31)
DX: K45.8 Other specified abdominal hernia without obstruction or gangrene (principal); J95.821 Acute postprocedural respiratory failure; K56.2 Volvulus; K55.9 Vascular disorder of intestine, unspecified; K56.1 Intussusception; D62 Acute posthemorrhagic anemia; E87.20 Acidosis, unspecified; N17.9 Acute kidney failure, unspecified; K56.7 Ileus, unspecified; K21.00 Gastro-esophageal reflux disease with esophagitis, without bleeding; Z91.81 History of falling; Z98.84 Bariatric surgery status; I48.91 Unspecified atrial fibrillation; I10 Essential (primary) hypertension; J45.909 Unspecified asthma, uncomplicated; E03.9 Hypothyroidism, unspecified; G43.909 Migraine, unspecified, not intractable, without status migrainosus; Z86.718 Personal history of other venous thrombosis and embolism; Z86.711 Personal history of pulmonary embolism; Z98.890 Other specified postprocedural states; Z90.49 Acquired absence of other specified parts of digestive tract; Z90.710 Acquired absence of both cervix and uterus; Z95.0 Presence of cardiac pacemaker; Z98.891 History of uterine scar from previous surgery; F32.A Depression, unspecified; F43.10 Post-traumatic stress disorder, unspecified; R59.1 Generalized enlarged lymph nodes; Z88.5 Allergy status to narcotic agent; Z88.7 Allergy status to serum and vaccine; Z79.01 Long term (current) use of anticoagulants; G90.1 Familial dysautonomia [Riley-Day]; D56.0 Alpha thalassemia; M54.12 Radiculopathy, cervical region; M54.14 Radiculopathy, thoracic region; Z79.890 Hormone replacement therapy; K46.9 Unspecified abdominal hernia without obstruction or gangrene; E87.6 Hypokalemia; E87.8 Other disorders of electrolyte and fluid balance, not elsewhere classified; G40.909 Epilepsy, unspecified, not intractable, without status epilepticus; F39 Unspecified mood [affective] disorder; Z91.0110 Allergy to milk products, unspecified; Z88.1 Allergy status to other antibiotic agents; M54.6 Pain in thoracic spine; K22.89 Other specified disease of esophagus; Z86.73 Personal history of transient ischemic attack (TIA), and cerebral infarction without residual deficits; Z79.899 Other long term (current) drug therapy; Z88.8 Allergy status to other drugs, medicaments and biological substances; G47.00 Insomnia, unspecified; K28.9 Gastrojejunal ulcer, unspecified as acute or chronic, without hemorrhage or perforation; D69.6 Thrombocytopenia, unspecified; K56.41 Fecal impaction; K29.50 Unspecified chronic gastritis without bleeding
CPT/HCPCS: 36415; 36430; 36600; 71045; 71250; 74177; 74250; 80048; 80053; 80307; 82805; 83605; 83690; 83735; 84100; 84484; 85025; 85610; 85730; 86850; 86900; 86901; 87324; 87449; 88305; 93005; 94002; 94003; 94664; 96372; 96374; 96375; 96376; A4314; C1751; C1776; G0378; J0360; J0694; J1100; J1200; J1650; J1885; J2250; J2270; J2405; J2470; J2543; J2550; J2704; J2765; J3010; J3475; J3480; J7030; J7070; J7120; P9016; P9045; Q9963; Q9967

== ENCOUNTER 2025-09-11 11:56 | Emergency (ER) | payer MEDICARE ==
[2025-09-11 14:07] LABS: #Basophils 0.06 10x3/uL (0.0-0.2); #Eosinophils 0.08 10x3/uL (0.0-0.7); #Monocytes 0.49 10x3/uL (0.11-0.59); #Neutrophils 2.47 10x3/uL (1.40-6.50); %Basophils 1.5 % (0.0-1.0); %Eosinophils 2.0 % (0.0-10.0); %Lymphocytes 24.0 % (21.0-51.0); %Monocytes 12.0 % (0.0-10.0); %Neutrophils 60.3 % (42.0-75.0); Hematocrit 31.3 % (36.0-47.0); Hemoglobin 9.8 g/dL (12.0-16.0); Mean Corpuscular Hemoglobin 28.7 pg (27.0-31.0); Mean Corpuscular Volume 91.5 fL (78.0-98.0); Platelet Count 248 10x3/uL (130-400); Red Blood Cell (RBC) Count 3.42 mill/uL (4.20-5.40); White Blood Cell (WBC) Count 4.09 10x3/uL (4.8-10.8)
[2025-09-11 14:25] LABS: ALT (SGPT) 10 U/L (Less than 34); AST (SGOT) 17 U/L (11-34); Albumin 2.2 g/dL (3.1-4.5); Alkaline Phosphatase 56 U/L (40-110); Anion Gap 11 mmol/L (10-20); BUN (Urea Nitrogen) 12 mg/dL (9.8-20.1); Bilirubin, Total 0.1 mg/dL (0.3-1.2); Calc. Creatinine Clearance 0 mL/min (70-130); Calcium 7.5 mg/dL (7.8-10.44); Carbon Dioxide 17 mmol/L (22-29); Chloride 116 mmol/L (98-107); Globulin 2.3 g/dL (2.4-3.5); Glucose 101 mg/dL (70-105); Potassium 3.5 mmol/L (3.5-5.1); Sodium 140 mmol/L (136-145)
== END 2025-09-11 16:33 | disposition home or self-care (01) ==
LOC: ERS 11:56
DX: I82.612 Acute embolism and thrombosis of superficial veins of left upper extremity (principal); I10 Essential (primary) hypertension
CPT/HCPCS: 80053; 85025

== ENCOUNTER 2025-10-18 08:35 | Outpatient (CLI) | payer MEDICARE | END 2025-10-18 08:36 | disposition home or self-care (01) | LOC: CT 08:35 | DX: K21.9 Gastro-esophageal reflux disease without esophagitis (principal); R19.7 Diarrhea, unspecified; K55.9 Vascular disorder of intestine, unspecified; K56.2 Volvulus; R10.30 Lower abdominal pain, unspecified; K43.9 Ventral hernia without obstruction or gangrene; K63.89 Other specified diseases of intestine; K59.00 Constipation, unspecified; R60.0 Localized edema; Z98.890 Other specified postprocedural states | CPT/HCPCS: 74177 ==